=== PATIENT | male | born 1935 | race Caucasian/White ===

== ENCOUNTER 2016-07-16 08:19 | Emergency (ER) | payer OTHER ==
--- NOTE | 2016-07-16 08:49 | ED EKG INTERP ---
EKG Interpretation - EKG Time of EKG reading by physician:: 08:31 EKG Read and Signed by:: Leola Mullins EKG Interpretation (*Must complete 3 of following elements*): Abnormal Rate: 84 Rhythm: sinus rhythm with 1st degree AV block Comments: LBBB Attestation - Scribe Verification/Attestation Scribe:: Kandi Lyman Acting as Scribe for:: Leola Mullins Scribe documention review:: This chart was documented by a scribe and accurately reflects the service the provider performed and the decisions made by the provider.
[2016-07-16] MEDS ORDERED: LASIX IV ONE (08:57)
--- NOTE | 2016-07-16 09:15 | PROVIDER DOCUMENTATION ---
HPI-General Adult - General Source: patient - History of Present Illness -Gen Adult Nature of Presenting Problems: Pt is 80 y/o M presents to the ED with increased swelling. 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 Pt denies CP. Pt denies F and chills. Pt states being SOB. Pt states mild cough. Location of Pain/Injury: reports: lower extremity (bilateral leg) Pain Radiation: reports: no radiation Quality of Pain: reports: fullness Severity: reports: mild Onset/Duration: reports: 1 week ago Timing: reports: still present, intermittent Context/Activities at Onset: reports: light activity Modifying Factors: improves with: nothing Associated Symptoms: reports: cough, shortness of breath, weakness, trouble walking. denies: anxiety, arm pain, back/neck pain, chest pain, constipation, diaphoresis, diarrhea, dizziness, EENT symptoms, fatigue, fever/chills, genitourinary problems, headaches, heartburn, joint pain, loss of appetite, malaise, muscle aches, sinus congestion/drainage, nausea, rash, seizure, sensory /motor loss, pain with inspiration, swelling/mass in abdomen, syncope, vomiting Similar Symptoms Previously?: Yes Recently seen or treated by another doctor?: No <Kandi Lyman - Last Filed: 07/16/16 11:36> <Leola Mullins - Last Filed: 07/16/16 11:41> - General Chief Complaint: Shortness of Breath Stated Complaint: CANT BREATHE Time Seen by Provider: 07/16/16 08:53 Allergies/Adverse Reactions: Patient Allergies Allergy/AdvReac Type Severity Reaction Status Date / Time hydrochlorothiazide Allergy Unknown Verified 07/16/16 09:41 [From Hyzaar] hydroxyzine HCl * Allergy Unknown Verified 07/16/16 09:41 [From Atarax] ketoprofen [From Orudis] Allergy SWELLING Verified 07/16/16 09:41 losartan potassium * Allergy Unknown Verified 07/16/16 09:41 [From Hyzaar] Home Medications: Home Medication List Medication Instructions Recorded Confirmed Last Taken Type Furosemide [Lasix] 40 mg PO DAILY 05/13/14 07/16/16 10/25/15 History Glimepiride 2 mg PO BID 01/13/15 03/18/17 06/26/16 History Omeprazole [Prilosec] 40 mg PO DAILY 05/13/14 07/16/16 10/25/15 History Sotalol [Betapace] 80 mg PO BID 05/13/14 07/16/16 10/25/15 History Aspirin [Ecotrin] 325 mg PO DAILY #30 tablet. 10/30/15 07/16/16 Unknown Rx SIMVAstatin [Zocor] 20 mg PO MoWeFr@2100 #0 tablet 10/30/15 07/16/16 Unknown Rx Brinzolamide [Azopt] 1 drop OP BID 04/10/16 07/16/16 Unknown History Latanoprost [Xalatan] 2.5 ml OP QHS 04/10/16 07/16/16 Unknown History Alfuzosin HCl [Alfuzosin HCl ER] 10 mg PO DAILY 07/16/16 07/16/16 Unknown History Furosemide [Lasix] 40 mg PO DAILY #30 tablet 07/16/16 Unknown Rx Warfarin [Coumadin] 3 mg PO DAILY 07/16/16 07/16/16 Unknown History Review of Systems - Adult - REVIEW OF SYSTEMS - ADULT Constitutional: denies: chills, fever Eyes: denies: blurred vision, double vision Ears, Nose, Mouth & Throat: denies: ear pain, nose pain, throat pain Cardiovascular: denies: chest pain, heart murmur, irregular heart rate Respiratory: reports: cough, shortness of breath. denies: wheezing Gastrointestinal: denies: abdominal pain, diarrhea, nausea, vomiting Genitourinary: denies: dysuria, discharge, hematuria Musculoskeletal: denies: bone pain, joint pain, neck pain Integumentary: denies: hives, itching Neurological: denies: dizziness/vertigo, headache/migraines Psychiatric: reports: no symptoms reported Endocrine: reports: no symptoms reported Hematologic/Lymphatic: reports: no symptoms reported Allergic/Immunologic: reports: no symptoms reported All Other Systems: Reviewed and Negative <Kandi Lyman - Last Filed: 07/16/16 11:36> Past History - Adult - PAST MEDICAL HISTORY-ADULT Review of Records: reports: Nursing Assessment Review, Medications Reviewed, Social history reviewed & non-contributory. Major Childhood Illnesses: reports: denies history Cardiovascular: reports: HTN, hyperlipidemia, pacemaker Respiratory: reports: denies history Gastrointestinal: reports: GERD Obstetrical/Gynecological: reports: denies history Genitourinary: reports: denies history Musculoskeletal: reports: other (gout) Neurological: reports: TIA Endocrine/Immune: reports: Diabetes, thyroid disorder Other Conditions: reports: cataract/glaucoma - PRIOR SURGERIES/PROCEDURES Surgical/Procedure History: reports: pacemaker, tonsillectomy - PRIOR HOSPITALIZATIONS Prior Hospitalizations: reports: none - IMMUNIZATION STATUS Childhood Immunizations: See Nurse Assessment Flu Vaccine: See Nurse Assessment - FAMILY HISTORY Family History: reviewed, not pertinent - SOCIAL HISTORY Smoking: quit greater than 1 year, cigarettes Substance Use: denies Living Situation: family <Kandi Lyman - Last Filed: 07/16/16 11:36> Physical Exam-General - PHYSICAL EXAM-ADULT Initial Vital Signs Reviewed: Yes - CONSTITUTIONAL General Appearance: appears well, alert, no apparent distress - EYES Eyes: PERRL/EOMI, pink conjunctivae, fundi clear, no AV nicking - HEAD, EARS, NOSE, MOUTH & THROAT HENMT: normocephalic/atraumatic, moist mucous membranes, normal ENT inspection, TMs normal, pharynx normal - NECK Neck: non-tender, full range of motion, supple, normal inspection - RESPIRATORY Respiratory: chest non-tender, lungs clear, normal breath sounds, no pleuratic chest pain, no respiratory distress, no accessory muscle use, increased rate - CARDIOVASCULAR Cardiovascular: normal peripheral pulses, regular rate, rhythm, no edema, no gallop, no JVD, no murmur - GASTROINTESTINAL (ABDOMEN) Abdominal Exam: normal bowel sounds, non tender, soft, no organomegaly, no pulsatile mass - LYMPHATIC Lymphatic: no adenopathy - MUSCULOSKELETAL Back Exam: normal inspection, no CVA tenderness, no vertebral tenderness Extremity: normal range of motion, non-tender, normal gait, no calf tenderness, normal capillary refill, pedal edema (bilateral), swelling (bilateral legs) - SKIN Integumentary: normal color, normal turgor, warm/dry - NEUROLOGIC Neurologic: grossly normal - PSYCHIATRIC Psych/Mental Status: normal mood/affect, oriented x 3 <Kandi Lyman - Last Filed: 07/16/16 11:36> Progress - PLAN OF CARE/RESULTS Progress/Plan/Lab Results: Orders Category Date Time Status Cardiac Monitoring DIRECTED Care 07/16/16 08:55 Active Saline Loc NOW Care 07/16/16 08:55 Active CHEST-PORTABLE [RAD] Stat Exams 07/16/16 08:55 Taken CBC WITH ELECTRONIC DIFF [HEME] Stat Lab 07/16/16 08:55 Uncollected CK PROFILE [SP CHEM] Stat Lab 07/16/16 08:55 Uncollected COMPREHENSIVE METABOLIC PANEL [CHEM] Stat Lab 07/16/16 08:55 Uncollected D-DIMER [CHEM] Stat Lab 07/16/16 08:55 Uncollected MAGNESIUM [CHEM] Stat Lab 07/16/16 08:55 Uncollected PRO B-NATRIURETIC PEPTIDE Stat Lab 07/16/16 08:55 Uncollected PROTIME WITH INR [COAG] Stat Lab 07/16/16 08:55 Uncollected PTT [COAG] Stat Lab 07/16/16 08:55 Uncollected TROPONIN T Stat Lab 07/16/16 08:55 Uncollected UA NIMS W/REFLEX CULT [URINALYSIS] Stat Lab 07/16/16 08:55 Uncollected Furosemide [Lasix] Med 07/16/16 08:57 Discontinued 100 mg IV NOW ONE EKG [EKG] Stat Ther 07/16/16 08:37 Ordered Vital Signs - 24 hr 07/16/16 08:38 Temperature 97.7 F Pulse Rate 86 Respiratory 24 Rate Blood Pressure 183/80 O2 Sat by Pulse 93 L Oximetry Laboratory Tests 07/16/16 09:21 WBC 8.72 RBC 4.61 L Hgb 13.9 L Hct 43.0 MCV 93.3 MCH 30.2 MCHC 32.3 L RDW Std Deviation 13.6 Plt Count 153 MPV 11.8 H Immature Gran % (Auto) 0.2 Neut % (Auto) 73.6 Lymph % (Auto) 13.3 L [place] % (Auto) 7.2 Eos % (Auto) 5.2 Baso % (Auto) 0.5 Immature Gran # (Auto) 0.02 Neut # (Auto) 6.42 Lymph # (Auto) 1.16 L [place] # (Auto) 0.63 H Eos # (Auto) 0.45 Baso # (Auto) 0.04 Laboratory Tests 07/16/16 07/16/16 07/16/16 09:21 09:21 09:21 WBC 8.72 RBC 4.61 L Hgb 13.9 L Hct 43.0 MCV 93.3 MCH 30.2 MCHC 32.3 L RDW Std Deviation 13.6 Plt Count 153 MPV 11.8 H Immature Gran % (Auto) 0.2 Neut % (Auto) 73.6 Lymph % (Auto) 13.3 L [place] % (Auto) 7.2 Eos % (Auto) 5.2 Baso % (Auto) 0.5 Immature Gran # (Auto) 0.02 Neut # (Auto) 6.42 Lymph # (Auto) 1.16 L [place] # (Auto) 0.63 H Eos # (Auto) 0.45 Baso # (Auto) 0.04 PT INR PTT (Actin FS) D-Dimer 0.71 H Sodium 142 Potassium 4.4 Chloride 106 Carbon Dioxide 24 L Anion Gap 12 BUN 27 H Creatinine 1.7 H Estimated GFR/1.73 m2 39 BUN/Creatinine Ratio 16 Glucose 255 H Calculated Osmolality 297 Calcium 9.0 Magnesium 1.9 Total Bilirubin 1.23 H AST 12 ALT 14 Alkaline Phosphatase 136 H Creatine Kinase 59 Troponin T Dqe-A-Yeqbipueeai Pept Total Protein 6.9 Albumin 3.4 L Globulin 3.5 Albumin/Globulin Ratio 1.0 Urine Source Urine Color Urine Turbidity Urine pH Ur Specific [place] Urine Protein Ur Glucose (Stick) Ur Ketones (Stick) Urine Blood Urine Nitrite Urine Bilirubin Urobilinogen Dipstick Urine Leukocytes Urine WBC (Auto) Urine RBC (Auto) U Epithel Cells (Auto) Urine Bacteria (Auto) 07/16/16 07/16/16 07/16/16 09:21 09:21 09:21 WBC RBC Hgb Hct MCV MCH MCHC RDW Std Deviation Plt Count MPV Immature Gran % (Auto) Neut % (Auto) Lymph % (Auto) [place] % (Auto) Eos % (Auto) Baso % (Auto) Immature Gran # (Auto) Neut # (Auto) Lymph # (Auto) [place] # (Auto) Eos # (Auto) Baso # (Auto) PT 27.4 H INR 2.56 PTT (Actin FS) 37.8 H D-Dimer Sodium Potassium Chloride Carbon Dioxide Anion Gap BUN Creatinine Estimated GFR/1.73 m2 BUN/Creatinine Ratio Glucose Calculated Osmolality Calcium Magnesium Total Bilirubin AST ALT Alkaline Phosphatase Creatine Kinase Troponin T < 0.010 Tss-Y-Ciohikglckh Pept 1649 H Total Protein Albumin Globulin Albumin/Globulin Ratio Urine Source Urine Color Urine Turbidity Urine pH Ur Specific [place] Urine Protein Ur Glucose (Stick) Ur Ketones (Stick) Urine Blood Urine Nitrite Urine Bilirubin Urobilinogen Dipstick Urine Leukocytes Urine WBC (Auto) Urine RBC (Auto) U Epithel Cells (Auto) Urine Bacteria (Auto) 07/16/16 10:07 WBC RBC Hgb Hct MCV MCH MCHC RDW Std Deviation Plt Count MPV Immature Gran % (Auto) Neut % (Auto) Lymph % (Auto) [place] % (Auto) Eos % (Auto) Baso % (Auto) Immature Gran # (Auto) Neut # (Auto) Lymph # (Auto) [place] # (Auto) Eos # (Auto) Baso # (Auto) PT INR PTT (Actin FS) D-Dimer Sodium Potassium Chloride Carbon Dioxide Anion Gap BUN Creatinine Estimated GFR/1.73 m2 BUN/Creatinine Ratio Glucose Calculated Osmolality Calcium Magnesium Total Bilirubin AST ALT Alkaline Phosphatase Creatine Kinase Troponin T Obh-A-Udhkdteauiw Pept Total Protein Albumin Globulin Albumin/Globulin Ratio Urine Source CLEAN CATCH Urine Color YELLOW Urine Turbidity CLEAR Urine pH 5.5 Ur Specific [place] 1.012 Urine Protein TRACE A Ur Glucose (Stick) TRACE Ur Ketones (Stick) NEGATIVE Urine Blood NEGATIVE Urine Nitrite NEGATIVE Urine Bilirubin NEGATIVE Urobilinogen Dipstick NORMAL Urine Leukocytes NEGATIVE Urine WBC (Auto) <10 Urine RBC (Auto) <10 U Epithel Cells (Auto) <10 Urine Bacteria (Auto) NEGATIVE - REASSESSMENT Reassessment #1 Time Reassessed: 11:36 (Dr. Mullins at bedside ) Status: improving Reassessment Comment: Dr. Mullins offered admit and Pt declined and wants to go home - XRAY 1 XRAY: Bilateral XRAY Study: Chest Impression: Normal XRAY Interpretation: pulmonary edema; slight R pleural effusion <Kandi Lyman - Last Filed: 07/16/16 11:36> - REASSESSMENT Reassessment #2 Time Reassessed: 11:39 Status: improving (Pt urinated a lot and feels a lot better. Ready to go home. Declined my offer for admission and pacer check. Stating that h's pacer was checked a couple of months ago and he was told that it was ok and he has an appoint with his [employer] NEXT WEEK.) <Leola Mullins X - Last Filed: 07/16/16 11:41> Departure <Kandi Lyman - Last Filed: 07/16/16 11:36> - Departure Time of Disposition Order: 11:38 Certified Medical Emergency: Emergent <MullinsLeola Mcbride - Last Filed: 07/16/16 11:41> - Departure DIAGNOSIS: CHF exacerbation Qualifiers: Congestive heart failure type: unspecified congestive heart failure type Qualified Code(s): I50.9 - Heart failure, unspecified Disposition: HOME 01 Condition: Stable Additional Instructions: Return to ER if your symptoms worsen. Follow up with your Help Desk Consultant next week as scheduled. Prescriptions: Furosemide [Lasix] 40 mg PO DAILY #30 tablet Referrals: Yoni Turcios DO [Primary Care Provider] - Attestation - Scribe Verification/Attestation Scribe:: Kandi Lyman Acting as Scribe for:: Leola Mullins Scribe documention review:: This chart was documented by a scribe and accurately reflects the service the provider performed and the decisions made by the provider. <Kandi Lyman - Last Filed: 07/16/16 11:36> Physician Attestation
[2016-07-16 09:41] LABS: MANUAL DIFF NEEDED? NO
[2016-07-16 09:44] LABS: HEMOGLOBIN 13.9 g/dL (14.0-18.0); MCV 93.3 FL (81-99); RBC 4.61 XMIL (4.7-6.1)
[2016-07-16 09:45] LABS: BASO% 0.5 % (0.0-0.8); EOS# 0.45 X1000 (0.0-0.7); EOS% 5.2 % (0.0-10.0); IMM GRAN# 0.02 X1000 (0.0-0.04); IMM GRAN% 0.2 % (0.0-0.5); LYMPH# 1.16 X1000 (1.2-3.4); LYMPH% 13.3 % (20.5-51.1); MCH 30.2 PG (27-31); MCHC 32.3 g/dL (33-37); MONO# 0.63 X1000 (0.11-0.59); MONO% 7.2 % (1.7-9.3); MPV 11.8 FL (7.4-10.4); NEUT% 73.6 % (42.2-75.2); PLT 153 X1000 (130-400)
[2016-07-16 09:55] LABS: ALBUMIN 3.4 g/dL (3.5-5.0); MAGNESIUM 1.9 mg/dL (1.5-2.7); POTASSIUM 4.4 mmol/L (3.5-5.1); TOTAL BILIRUBIN 1.23 mg/dL (0.20-1.00); TOTAL PROTEIN 6.9 g/dL (6.3-8.3)
[2016-07-16 10:00] LABS: PTT 37.8 Seconds (22.0-36.0)
[2016-07-16] MEDS ORDERED: LABETALOL IV ONE (10:01)
[2016-07-16 10:16] LABS: URINE CULTURE NEEDED? NO; URINE MICRO REVIEW NEEDED? NO; URINE SOURCE CLEAN CATCH
[2016-07-16 10:26] LABS: INR 2.56; PROTIME 27.4 Seconds (9.2-11.7)
[2016-07-16 10:27] LABS: BILIRUBIN URINE NEGATIVE (NEGATIVE); BLOOD URINE NEGATIVE (NEGATIVE); COLOR YELLOW; GLUCOSE URINE TRACE mg/dL (NEGATIVE); LEUKOCYTES URINE NEGATIVE (NEGATIVE); NITRITE URINE NEGATIVE (NEGATIVE); PH URINE 5.5; PROTEIN URINE TRACE mg/dL (NEGATIVE); SP GRAVITY URINE 1.012; TURBIDITY URINE CLEAR (CLEAR); UROBILINOGEN URINE NORMAL (NORMAL)
[2016-07-16 10:29] LABS: UR EPITHELIAL CELLS <10 /HPF (<10); URINE BACTERIA NEGATIVE /HPF; URINE RBC <10 /HPF (<10); URINE WBC <10 /HPF (<10)
[2016-07-16 11:01] LABS: ALLEN TEST YES; BE -2.4 mmoll (-3.0-3.0); BLOOD TYPE ARTERIAL; DRAW SITE R RADIAL; O2(CT) 18.7 mL/dL (15.0-23.0); PCO2(98.6) 42 mmHg (35-45); PO2(98.6) 72 mmHg (60-100); SAMPLE BLOOD; SAO2 96.6 % (95.0-100.0); THB 14.2 g/dL (11.5-17.4); pH(98.6) 7.35 (7.35-7.45)
[2016-07-16 11:02] LABS: MODALITY CANNULA
--- NOTE | 2016-07-16 12:19 | Diag Imaging Result Document ---
PROCEDURE NAME: CHEST-PORTABLE - 07/16/2016 SINGLE FRONTAL RADIOGRAPH OF THE CHEST: COMPARISON: 04/10/2016. FINDINGS: Postsurgical changes on the right are again noted. A metallic staple line traverses the right mid lung zone similar to the previous study. There is mild linear scarring similar to the previous study in the right mid lung zone. There may be a small pleural effusion versus pleural scarring at the right lung base. The lungs are clear otherwise. Cardiac silhouette is unchanged. IMPRESSION: Postsurgical changes on the right and mild blunting of the right costophrenic angle suggesting chronic pleural scarring versus trace effusion.
[2016-07-16 12:36] VITALS: BP 176/93
--- NOTE | 2016-07-17 06:05 | EKG Report ---
Test Performed on : 07/16/2016 08:31:59 AM Test Reason : SOB Blood Pressure : / mmHG Vent. Rate : 084 BPM Atrial Rate : 084 BPM P-R Int : 254 ms QRS Dur : 132 ms QT Int : 420 ms P-R-T Axes : 056 035 005 degrees QTc Int : 496 ms Sinus rhythm. with 1st degree AV block. Left bundle branch block Abnormal ECG When compared with ECG of 13-APR-2016 22:16, Left bundle branch block is now present Criteria for Anteroseptal infarct are no longer present Unconfirmed Result
== END 2016-07-16 12:10 | disposition home or self-care (01) ==
LOC: ED 08:19
DX: I50.9 Heart failure, unspecified (principal); R06.02 Shortness of breath; I10 Essential (primary) hypertension; E78.5 Hyperlipidemia, unspecified; K21.9 Gastro-esophageal reflux disease without esophagitis; M10.9 Gout, unspecified; Z86.73 Personal history of transient ischemic attack (TIA), and cerebral infarction without residual deficits; E11.9 Type 2 diabetes mellitus without complications; Z79.899 Other long term (current) drug therapy; E07.9 Disorder of thyroid, unspecified; Z95.0 Presence of cardiac pacemaker; Z87.891 Personal history of nicotine dependence; R60.9 Edema, unspecified; Z79.01 Long term (current) use of anticoagulants; Z79.82 Long term (current) use of aspirin
CPT/HCPCS: 71010; 80053; 81001; 82550; 82805; 83735; 83880; 84484; 85025; 85379; 85610; 85730; 93005; J1940

== ENCOUNTER 2018-07-05 11:14 | Inpatient (IN) ==
--- NOTE | 2018-07-05 11:53 | Diag Imaging Result Doc PS360 ---
EXAM: CT HEAD W/O CONTRAST HISTORY: ams/ r/o stroke TECHNIQUE: CT head without contrast COMPARISON: 05/08/2018 FINDINGS: No parenchymal hemorrhage. No epidural or subdural hematoma. No subarachnoid hemorrhage. There is atrophy with chronic microvascular ischemic changes. No mass identified on this noncontrasted exam. No hydrocephalus. Persistent opacification of the right maxillary sinus with prominent mucus in the right ethmoid sinus.. IMPRESSION: 1.No hemorrhage 2.Atrophy with chronic microvascular ischemic changes 3.Persistent sinusitis This exam was performed using automated exposure control, adjustment of mA or kV according to patient size, and/or use of iterative reconstruction technique. Electronically signed by Oliver Ulloa 07/05/2018 11:51 AM
[2018-07-05] MEDS ORDERED: CATAPRES PO ONE (14:34)
--- NOTE | 2018-07-05 14:43 | EKG Report ---
Test Performed on : 07/05/2018 11:33:05 AM Test Reason : TIA Blood Pressure : / mmHG Vent. Rate : 071 BPM Atrial Rate : 071 BPM P-R Int : 202 ms QRS Dur : 178 ms QT Int : 480 ms P-R-T Axes : 000 -72 086 degrees QTc Int : 521 ms Atrial-sensed ventricular-paced rhythm Abnormal ECG When compared with ECG of 07-MAR-2017 13:31, No significant change was found Unconfirmed Result
[2018-07-05 15:46] LABS: BASO# 0.02 X1000 (0.0-0.2); BASO% 0.2 % (0.0-0.8); EOS# 0.36 X1000 (0.0-0.7); EOS% 4.3 % (0.0-10.0); HEMATOCRIT 42.7 % (42.0-52.0); HEMOGLOBIN 13.7 g/dL (14.0-18.0); IMM GRAN# 0.04 X1000 (0.0-0.04); IMM GRAN% 0.5 % (0.0-0.5); LYMPH# 1.66 X1000 (1.2-3.4); LYMPH% 19.9 % (20.5-51.1); MCH 29.7 PG (27-31); MCHC 32.1 g/dL (33-37); MCV 92.6 FL (81-99); MONO# 0.71 X1000 (0.11-0.59); MONO% 8.5 % (1.7-9.3); MPV 11.6 FL (7.4-10.4); NEUT# 5.56 X1000 (1.4-6.5); NEUT% 66.6 % (42.2-75.2); PLT 156 X1000 (130-400); RBC 4.61 XMIL (4.7-6.1); RDW 13.6 % (11.5-14.5); WBC 8.35 X1000 (4.8-10.8)
[2018-07-05 16:00] LABS: ALB/GLOB RATIO 1.1; ALBUMIN 3.7 g/dL (3.5-5.0); CALCIUM 8.4 mg/dL (8.8-10.2); CREATININE 1.3 mg/dL (0.7-1.2); POTASSIUM 4.4 mmol/L (3.5-5.1); TOTAL BILIRUBIN 0.83 mg/dL (0.20-1.00); TOTAL PROTEIN 7.1 g/dL (6.3-8.3)
[2018-07-05 16:54] LABS: URINE SOURCE VOIDED
[2018-07-05 17:00] LABS: BILIRUBIN URINE NEGATIVE (NEGATIVE); BLOOD URINE NEGATIVE (NEGATIVE); COLOR YELLOW; GLUCOSE URINE NEGATIVE (NEGATIVE); KETONE URINE NEGATIVE (NEGATIVE); LEUKOCYTES URINE NEGATIVE (NEGATIVE); NITRITE URINE NEGATIVE (NEGATIVE); PH URINE 7.5; PROTEIN URINE 70 mg/dL (NEGATIVE); SP GRAVITY URINE 1.015; TURBIDITY URINE CLEAR (CLEAR); UROBILINOGEN URINE NORMAL (NORMAL)
[2018-07-05 17:01] LABS: UR EPITHELIAL CELLS <10 /HPF (<10); URINE BACTERIA NEGATIVE /HPF; URINE RBC <10 /HPF (<10); URINE WBC <10 /HPF (<10)
[2018-07-05] MEDS: ASPIRIN PO ONE ×2 (17:38→17:54)
--- NOTE | 2018-07-05 17:42 | PROVIDER DOCUMENTATION ---
This chart was entered by Sneha Silva Scribe, acting as scribe for Erik Mayer MD. HPI-Neurological Disorder - General Chief Complaint: Stroke-Like Symptoms Stated Complaint: stroke like sx Time Seen by Provider: 07/05/18 14:11 Source: patient, family, EMS Allergies/Adverse Reactions: Patient Allergies Allergy/AdvReac Type Severity Reaction Status Date / Time hydrochlorothiazide Allergy Unknown Verified 07/05/18 15:30 [From Hyzaar] hydroxyzine HCl * Allergy Unknown Verified 07/05/18 15:30 [From Atarax] ketoprofen [From Orudis] Allergy SWELLING Verified 07/05/18 15:30 losartan potassium * Allergy Unknown Verified 07/05/18 15:30 [From Hyzaar] Home Medications: Home Medication List Medication Instructions Recorded Confirmed Last Taken Type Glimepiride 2 mg PO BID 05/13/14 03/07/17 02/09/17 07:00 History Omeprazole [Prilosec] 40 mg PO DAILY 05/13/14 03/07/17 02/09/17 07:00 History Sotalol [Betapace] 80 mg PO BID 05/13/14 03/07/17 02/09/17 07:00 History Aspirin [Ecotrin] 325 mg PO DAILY #30 tablet. 10/30/15 03/07/17 02/09/17 07:00 Rx SIMVAstatin [Zocor] 20 mg PO MoWeFr@2100 #0 tablet 10/30/15 03/07/17 02/08/17 21:00 Rx Brinzolamide [Azopt] 1 drop OP BID 04/10/16 03/07/17 02/09/17 07:00 History Latanoprost [Xalatan] 2.5 ml OP QHS 04/10/16 03/07/17 02/08/17 22:00 History Alfuzosin HCl [Alfuzosin HCl ER] 10 mg PO DAILY 07/16/16 03/07/17 02/09/17 07:00 History Furosemide [Lasix] 40 mg PO DAILY #30 tablet 07/16/16 03/07/17 02/09/17 07:00 Rx Acetaminophen [Tylenol] 650 mg PO Q6H PRN PRN tablet 03/13/17 Unknown Rx Warfarin Sodium [Coumadin] 4 mg PO EVERY OTHER DAY #30 tab 03/13/17 Unknown Rx Warfarin [Coumadin] 3 mg PO EVERY OTHER DAY #30 tab 03/13/17 Unknown Rx - History of Present Illness-Neuro Nature of Presenting Problem: 82 yowm presents to ed with TIA. pt sts has had many in the past and this was the same sx. pt c/o weakness in rt arm/leg, could not ambulate, could not speak and sts lasted 15 minutes. pt called ems and by the time pt was at the ed the sx have all resolved. pt on exam is back baseline. pt sts he did have sinus sx on monday and was taking off coumadin 5 days prior to sx but is now back on medication Severity: reports: moderate Onset/Duration: reports: this afternoon Timing: reports: gone now Context: reports: impaired speech, facial droop Character of Altered Mental Status: reports: trouble concentrating Any recent trauma/injury?: reports: none Character of Deficits: reports: new weakness (rt arm/leg), impaired speech, decreased ability to stand, decreased ability to walk. denies: impaired swallowing New weakness or altered sensation location:: reports: RUE, RLE Cognitive Baseline: alert, oriented x3 Gait Baseline: walks without assistance Associated Symptoms: reports: decreased ability to walk or stand, confusion, trouble walking, weakness. denies: short of breath, headache, chest pain, neck/back pain, fever/chills, loss of consciousness, nausea, vomiting, vision changes Similar Symptoms Previously?: Yes (many TIA's) Recently seen or treated by another doctor?: Yes (had sinus sx on monday) Review of Systems - Adult - REVIEW OF SYSTEMS - ADULT Constitutional: reports: no symptoms reported. denies: chills, fever Eyes: denies: blurred vision, double vision Ears, Nose, Mouth & Throat: reports: no symptoms reported Cardiovascular: denies: chest pain, palpitations Respiratory: denies: cough, shortness of breath, wheezing Gastrointestinal: denies: abdominal pain, diarrhea, nausea, vomiting Genitourinary: reports: no symptoms reported Musculoskeletal: reports: see HPI, muscle weakness (RUE?RLE). denies: back pain, neck pain Integumentary: reports: no symptoms reported Neurological: reports: see HPI, ataxia, loss of balance, other (troule ambulating). denies: dizziness/vertigo, headache/migraines, numbness, paresthesia, seizure, slurred speech, syncope, tremors Psychiatric: reports: no symptoms reported Endocrine: reports: no symptoms reported Hematologic/Lymphatic: reports: no symptoms reported Allergic/Immunologic: reports: no symptoms reported All Other Systems: Reviewed and Negative Past History - Adult - PAST MEDICAL HISTORY-ADULT Review of Records: reports: Old Records Reviewed, Nursing Assessment Review, Medications Reviewed, Social history reviewed & non-contributory. Major Childhood Illnesses: reports: denies history Cardiovascular: reports: HTN, hyperlipidemia, pacemaker Respiratory: reports: denies history Gastrointestinal: reports: GERD Genitourinary: reports: denies history Musculoskeletal: reports: arthritis, other (gout) Neurological: reports: TIA Endocrine/Immune: reports: Diabetes, thyroid disorder Diabetes Type: Type 2 Other Conditions: reports: cataract/glaucoma - PRIOR SURGERIES/PROCEDURES Surgical/Procedure History: reports: pacemaker, tonsillectomy - PRIOR HOSPITALIZATIONS Prior Hospitalizations: reports: none - IMMUNIZATION STATUS Childhood Immunizations: See Nurse Assessment Flu Vaccine: See Nurse Assessment - FAMILY HISTORY Family History: reviewed, not pertinent - SOCIAL HISTORY Smoking: denies Substance Use: denies Living Situation: family Physical Exam- Neurological - Physical Exam-Neuro Initial Vital Signs Reviewed: Yes (HTN meds not taken this am ) General Appearance: appears well, alert, no apparent distress, obese Eye Exam: bilateral eye: normal inspection, PERRL HENMT: normocephalic/atraumatic, moist mucous membranes, normal ENT inspection Head Injury: no evidence of injury Neck: non-tender, full range of motion, supple, normal inspection Respiratory: chest non-tender, lungs clear, normal breath sounds, other (pt on home o2 2LPM) Cardiovascular: normal peripheral pulses, regular rate, rhythm Abdominal Exam: normal bowel sounds, non tender, soft Lymphatic: no adenopathy Extremity: normal range of motion, non-tender, normal inspection, no pedal edema , no calf tenderness, normal capillary refill, pelvis stable rail car mechanic Exam: normal hearing, normal speech, PERRL Coordination/Gait: normal finger to nose, normal gait Motor/Sensory: no motor deficit, no sensory deficit, no pronator drift, negative Babinski's sign Neurologic: grossly normal, no motor/sensory deficits Integumentary: normal color, normal turgor, warm/dry Psych/Mental Status: normal mood/affect, normal thought content, normal thought process, oriented x 3 - Glascow Coma Scale Best Eye Response: (4) open spontaneously Best Verbal Response: (5) oriented Best Motor Response: (6) obeys commands Total Glascow Score: 15 Progress - PLAN OF CARE/RESULTS Progress/Plan/Lab Results: Vital Signs - 8 hr 07/05/18 11:45 Temperature 98.5 F Pulse Rate 65 Respiratory Rate 18 Blood Pressure 177/85 O2 Sat by Pulse Oximetry 100 Laboratory Results - last 24 hr 07/05/18 07/05/18 07/05/18 15:17 15:17 15:17 WBC 8.35 RBC 4.61 L Hgb 13.7 L Hct 42.7 MCV 92.6 MCH 29.7 MCHC 32.1 L RDW Std Deviation 13.6 Plt Count 156 MPV 11.6 H Immature Gran % (Auto) 0.5 Neut % (Auto) 66.6 Lymph % (Auto) 19.9 L [place] % (Auto) 8.5 Eos % (Auto) 4.3 Baso % (Auto) 0.2 Immature Gran # (Auto) 0.04 Neut # (Auto) 5.56 Lymph # (Auto) 1.66 [place] # (Auto) 0.71 H Eos # (Auto) 0.36 Baso # (Auto) 0.02 Sodium 138 Potassium 4.4 Chloride 99 Carbon Dioxide 29 Anion Gap 10 BUN 24 H Creatinine 1.3 H Estimated GFR/1.73 m2 53 BUN/Creatinine Ratio 18 Glucose 164 H Calculated Osmolality 283 Calcium 8.4 L Total Bilirubin 0.83 AST 19 ALT 21 Alkaline Phosphatase 152 H Troponin T 0.013 Total Protein 7.1 Albumin 3.7 Globulin 3.4 Albumin/Globulin Ratio 1.1 Urine Source Urine Color Urine Turbidity Urine pH Ur Specific [place] Urine Protein Ur Glucose (Stick) Ur Ketones (Stick) Urine Blood Urine Nitrite Urine Bilirubin Urobilinogen Dipstick Urine Leukocytes Urine WBC (Auto) Urine RBC (Auto) U Epithel Cells (Auto) Urine Bacteria (Auto) 07/05/18 16:35 WBC RBC Hgb Hct MCV MCH MCHC RDW Std Deviation Plt Count MPV Immature Gran % (Auto) Neut % (Auto) Lymph % (Auto) [place] % (Auto) Eos % (Auto) Baso % (Auto) Immature Gran # (Auto) Neut # (Auto) Lymph # (Auto) [place] # (Auto) Eos # (Auto) Baso # (Auto) Sodium Potassium Chloride Carbon Dioxide Anion Gap BUN Creatinine Estimated GFR/1.73 m2 BUN/Creatinine Ratio Glucose Calculated Osmolality Calcium Total Bilirubin AST ALT Alkaline Phosphatase Troponin T Total Protein Albumin Globulin Albumin/Globulin Ratio Urine Source VOIDED Urine Color YELLOW Urine Turbidity CLEAR Urine pH 7.5 Ur Specific [place] 1.015 Urine Protein 70 A Ur Glucose (Stick) NEGATIVE Ur Ketones (Stick) NEGATIVE Urine Blood NEGATIVE Urine Nitrite NEGATIVE Urine Bilirubin NEGATIVE Urobilinogen Dipstick NORMAL Urine Leukocytes NEGATIVE Urine WBC (Auto) <10 Urine RBC (Auto) <10 U Epithel Cells (Auto) <10 Urine Bacteria (Auto) NEGATIVE Orders Category Date Time Status CT HEAD W/O CONTRAST [CT] Stat Exams 07/05/18 11:16 Completed CBC WITH ELECTRONIC DIFF [HEME] Stat Lab 07/05/18 15:17 Completed COMPREHENSIVE METABOLIC PANEL [CHEM] Stat Lab 07/05/18 15:17 Completed PROTIME WITH INR [COAG] Stat Lab 07/05/18 17:36 Uncollected PTT [COAG] Stat Lab 07/05/18 17:36 Uncollected TROPONIN T Stat Lab 07/05/18 15:17 Completed URINALYSIS [URINALYSIS] Stat Lab 07/05/18 16:35 Completed Aspirin Med 07/05/18 17:38 Once 325 mg PO NOW ONE Clonidine [Catapres] Med 07/05/18 14:34 Discontinued 0.1 mg PO NOW ONE EKG [EKG] Stat Ther 07/05/18 14:34 Draft no TPA given due to all sx resolved Result Diagrams: 07/05/18 15:17 07/05/18 15:17 - REASSESSMENT Reassessment #1 Time Reassessed: 16:51 Status: improving Reassessment Comment: pt is in no distress - EKG 1 Time of EKG reading by physician:: 11:33 EKG Read and Signed by:: Erik Mayer EKG Interpretation (*Must complete 3 of following elements*): Abnormal Rate: 71 Rhythm: atrial sensed ventricular paced rhythm [place]: normal QRS: normal [place] Interval: normal ST Wave: normal - CT/MRI 1 CT Study: Head Impression: See EMR Report (EXAM: CT HEAD W/O CONTRAST HISTORY: ams/ r/o stroke TECHNIQUE: CT head without contrast COMPARISON: 05/08/2018 FINDINGS: No parenchymal hemorrhage. No epidural or subdural hematoma. No subarachnoid hemorrhage. There is atrophy with chronic microvascular ischemic changes. No mass identified on this noncontrasted exam. No hydrocephalus. Persistent opacification of the right maxillary sinus with prominent mucus in the right ethmoid sinus.. IMPRESSION: 1.No hemorrhage 2.Atrophy with chronic microvascular ischemic changes 3.Persistent sinusitis This exam was performed using automated exposure control, adjustment of mA or kV according to patient size, and/or use of iterative reconstruction technique. Electronically signed by Oliver Ulloa 07/05/2018 11:51 AM 07/05/18 1151 Interpreting Physician: Oliver Ulloa MD Dictated Date/Time: 07/05/18 1149 cc: Erik Mayer MD; Yoni Turcios DO) - CONSULTS/PCP/HOSPITALIST Notification #1 *Consult/PCP/Hospitalist*: hospitalist spoke with justin Time Discussed: 17:30 (svetlana turcios pt and have to checked if pt has vip card?) Consult Disposition: Will see in ED #2 Consult: dr svetlana turcios Time Discussed: 17:34 Reason/Comments: TIA Consult Disposition: Admit Departure - Departure Date of Disposition Decision: 07/05/18 Time of Disposition Decision: 17:20 DIAGNOSIS: TIA (transient ischemic attack) Qualifiers: Transient cerebral ischemia type: unspecified Qualified Code(s): G45.9 - Transient cerebral ischemic attack, unspecified Disposition: ADMITTED INPATIENT 09 Certified Medical Emergency: Emergent Condition: Stable Additional Freetext Instructions: ED Follow Up Instructions: You have been treated by a care provider in the Emergency Department. These instructions are being provided to you so you can have an understanding of how to care for yourself upon discharge. Upon discharge from the Emergency Department, you are responsible for making arrangements for follow-up care by a physician of your choice. Take all prescribed medications as directed. Return to the Emergency Department immediately for any new or worsening symptoms. You may call the Physician Referral phone number at [phone] to obtain a list of Physicians who are taking new patients. Referrals and Follow-Ups: Yoni Turcios DO [Primary Care Provider] - - Critical Care Note This patient required my direct & personal management of CC.: Yes Total Time (mins): 34 Critical Care Statement: This patient required my direct personal management to treat or rule out processes, the absence of which, could potentiallly result in sudden, clinically significant life or limb threatening deterioration. Attestation - Physician/ SARI Attestation Patient care was provided by Advanced Practice Provider:: No The physician spent face to face time with patient:: Yes Advanced Practice Provider documentation review:: Supervising physician onsite and consulted in the evaluation and care of this patient. The physician did have a face to face encounter with the patient. - NIH Stroke Scale NIH Type: Initial Evaluation Level of Consciousness: 0-Alert LOC Questions (ask month and age): 0-Answers Both Correctly LOC Commands (ask to open & close eyes;make a fist, let go): 0-Obeys Both Correctly Best Gaze (horizontal eye movement): 0-Normal Visual (use finger movement, counting or visual threat): 0-No Visual Loss Facial Palsy (show teeth or raise eyebrows & close eyes tght: 0-Symmetrical Movement Motor Function-left arm: 0-Normal Motor Function-right arm: 0-Normal Motor Function-left le-Normal Motor Function-right le-Normal Limb Ataxia(bzxvei-ketp-yroiyl, or heel to rodriguez): 0-No Ataxia Sensory(pin prick to face,arms,trunk,legs-compare side/side): 0-No Ataxia Best Language(name item/read sentence.Ex-Down to Earth): 0-No Aphasia Dysarthria(Pt read words or say words Ex.Mama,Tip-Top,Thanks: 0-Normal Articulation Extinction and Inattention: 0-Normal NIH Total Score: 0 This chart was documented by the indicated scribe, (Sneha Silva Scribe) and accurately reflects the services I performed and decisions made by me, Erik Phan MD, as attested by the provider's signature.
[2018-07-05 18:15] LABS: INR 1.04; PROTIME 14.5 Seconds (11.0-16.0)
[2018-07-05 18:16] LABS: PTT 34.1 Seconds (22.3-41.8)
[2018-07-05] MEDS ORDERED: ZOFRAN IV PRN (19:18)
[2018-07-05] MEDS ORDERED: NS 1,000 ML IV PRN (19:18)
[2018-07-05] MEDS ORDERED: COUMADIN PO SCH (21:00)
[2018-07-05] MEDS ORDERED: LASIX IV ONE (21:54)
[2018-07-05] MEDS: COLACE PO SCH (22:10)
[2018-07-05] MEDS: LOVENOX SUBQ SCH (22:10)
[2018-07-05] MEDS: BETAPACE PO SCH (22:10)
[2018-07-05] MEDS: TRESIBA FLEXTOUCH U-100 SUBQ SCH (22:15)
[2018-07-05] MEDS ORDERED: INSULIN PEN NEEDLES ONE (22:24)
[2018-07-05] MEDS: XALATAN 0.005% OPH SOLN RIGHT EYE SCH (23:14)
[2018-07-06] MEDS: AZOPT 1% OPHTH SUSP RIGHT EYE SCH ×3 (05:27→20:56)
[2018-07-06] MEDS: HUMALOG SUBQ SCH ×3 (06:27→17:20)
--- NOTE | 2018-07-06 08:34 | HISTORY AND PHYSICAL ---
ATTENDING PHYSICIAN: Dr. Yoni Turcios. ADMITTING PHYSICIAN: Dr. Yoni Turcios. CHIEF COMPLAINT: TIA versus reversible neurologic deficit. HISTORY OF PRESENT ILLNESS: Mr. Oswald is a pleasant 82-year-old gentleman, who carries a variety of diagnoses including but not limited to, hypercoagulable state requiring long-term anticoagulation, chronic cholecystitis, chronic venous insufficiency, history of prostate cancer, history of hypertension, dyslipidemia, gout, long-term use of insulin due to type 2 diabetes, history of pulmonary fibrosis, cardiac pacemaker, diabetes complicated by nephropathy, osteoarthritis of the left knee, atrial fibrillation and renal insufficiency. He was last seen in the Internal Medicine Clinic on the 24 of May [address] a CT scan of the head which demonstrated persistence of chronic sinusitis. Also a CT scan of the chest demonstrating COPD with superimposed pulmonary fibrosis. He was subsequently referred to ENT for evaluation of chronic sinusitis and underwent a balloon procedure to address his chronic sinusitis. He has been off his Coumadin 4 days prior to his procedure and has been receiving 100 mg of Lovenox once daily plus restarting his Coumadin approximately 24 hours after his procedure. He reports that he had some minimal bleeding for 2 days following his procedure. He had left his home to go have his toenails done and in the process of walking out of the building, he started to have symptoms, which he has had historically, suggestive of a TIA. He will was unable to talk. He felt subjective weakness in the right upper and right lower extremity with difficulty with his speech. They sat and rested for a minute without complete resolution. 911 was called and he was brought to the emergency room for evaluation. The reports that within 15 or so minutes, he began talking. They arrived at the emergency room at 11:[address] scan and laboratory were obtained. CT scan was unremarkable. He is not a candidate for an MRI secondary to pacemaker placement. He is seen in the emergency room by myself. He is markedly better and improved. We have agreed that he will be admitted for adjustment of his Coumadin. His INR is 1.0 and his PTT and PT are normal. I suspect that this is likely a subtherapeutic event. We will be starting b.i.d. Lovenox and initiating oral Coumadin with interval followup as discussed. MEDICATIONS ON ADMISSION: 1. Azopt drops 1 in the right eye b.i.d. 2. Aspirin 325 mg once daily. 3. Xalatan drops 1 in the evening. 4. Coumadin as directed. 5. Omeprazole 40 mg once daily. 6. Afluzosine 10 mg once daily. 7. Furosemide 40 mg b.i.d. 8. Allopurinol 200 mg once daily. 9. Simvastatin 20 mg Monday, Monday, Monday. 10. Sotalol 40 mg b.i.d. 11. He is also on injectable insulin, specifically NovoLog FlexPen with a 10:1 ratio, approximately 6 units per meal. 12. Tresiba 25 units at night. ALLERGIES: To Orudis causing swelling, Hyzaar causing dizziness, Atarax causing rash all over, Byetta causing nausea, and hydroxyzine causing a rash. FAMILY HISTORY: Father at 43, head and neck cancer. Mother in 2005, CHF. Brother Yordy at 73, congestive heart failure, blocked colon. SOCIAL HISTORY: Patient is with 3 children, 2 biologic and 1 step, and has 6 grandchildren. He has been for 41+ years. 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 He has a 90 pack year history, having been quit since 1977. He denies any alcohol. SURGERIES: Left ear surgery in 1969, back surgery in 1988, TURP in 1997, lung surgery in 1987, a broken right lower extremity in 1969, pacemaker placement in 2002, pacemaker replacement in 2007, cataract surgery in 2003, sliver bunionectomy in 2010, aortic valve repair in 2015. Patient's last annual wellness visit noted to be September 2017. 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 Patient is a participant in our chronic care program. PHYSICAL EXAMINATION: Performed by myself in the emergency room. VITAL SIGNS: Blood pressure 191/86, pulse at 67, temperature at 97.5 degrees, saturating 100% on 1 L of nasal oxygen. HEENT: Normocephalic, atraumatic. Pupils are equal and reactive to light and accommodation. NECK: Soft and supple. CARDIOVASCULAR: Regular rate and rhythm. LUNGS: Clear. ABDOMEN: Soft with decreased bowel sounds. EXTREMITIES: With 2+ pitting edema (patient admits to not taking Lasix today secondary to inconvenience while being out). NEUROLOGIC: Client Service Manager strength is equal bilaterally in the upper extremities. Lower extremities with 5/5 strength. Cranial nerves are assessed without any evidence of deficit. Patient is alert oriented x3 without any cognitive deficiencies. LABORATORY DATA: Obtained in the emergency room. White blood cell count 8.3, hemoglobin and hematocrit at 13.7 and 42.7 with platelets at 156,000. PT/INR at 14.5 and 1.0. Sodium 138, potassium 4.4, chloride 99, bicarb at 29, BUN and creatinine at 24 and 1.3, glucose at 164. AST and ALT at 19 and 21. Urinalysis has 70 mg/dL of protein. Additional labs pending for this morning including a 24 hour urine, a hemoglobin A1c, a CBC with differential, a CMP, a protime with an INR, and a B12. IMPRESSION AND PLAN: An 82-year-old with atrial fibrillation and hypercoagulable state, presents with some subtherapeutic anticoagulation status with what appears to be a transient ischemic attack, self-limited. He is currently neurologically intact and improved. However, based on his subtherapeutic INR, he will be admitted to the Internal Medicine service and started on low molecular weight heparin injections b.i.d. as well as supplemental Coumadin. We will repeat the PT/INR in the morning of July 06 and make recommendations to follow. Considering his lower extremity edema, known chronic venous hypertension and accelerated blood pressure in the emergency room, a single dose of IV Lasix is being provided as well to mobilize some fluid. We will be addressing lower extremity edema with some compression hose as well. I will be contacting ENT as well as Hematology Oncology regarding disposition and ongoing clinical management through the weekend. There is persistence of sinusitis on the right per admission CT scan of the head and it is my opinion that he might benefit from a more aggressive approach to anticoagulation thereby reducing his risk for a completed ischemic stroke. The patient understands the course of treatment and plan. No further issues at this time. Note is dictated on the morning following admission. cc: DO JEFRY Reyes
[2018-07-06] MEDS: ZYLOPRIM PO SCH (09:01)
[2018-07-06] MEDS: BETAPACE PO SCH ×2 (09:02→20:55)
[2018-07-06] MEDS: UROXATRAL PO SCH (09:02)
[2018-07-06] MEDS: ASPIRIN EC PO SCH (09:02)
[2018-07-06] MEDS: LASIX PO SCH (09:02)
[2018-07-06] MEDS: ZOCOR PO SCH (09:02)
[2018-07-06] MEDS: PRILOSEC PO SCH (09:03)
[2018-07-06] MEDS: COLACE PO SCH ×2 (09:03→20:55)
[2018-07-06] MEDS: LOVENOX SUBQ SCH ×2 (09:04→20:54)
[2018-07-06 09:05] LABS: BASO# 0.02 X1000 (0.0-0.2); BASO% 0.3 % (0.0-0.8); EOS# 0.42 X1000 (0.0-0.7); EOS% 5.8 % (0.0-10.0); HEMATOCRIT 39.4 % (42.0-52.0); HEMOGLOBIN 12.8 g/dL (14.0-18.0); LYMPH# 1.38 X1000 (1.2-3.4); LYMPH% 19.1 % (20.5-51.1); MCHC 32.5 g/dL (33-37); MCV 92.5 FL (81-99); MONO# 0.64 X1000 (0.11-0.59); MONO% 8.9 % (1.7-9.3); NEUT# 4.76 X1000 (1.4-6.5); NEUT% 65.9 % (42.2-75.2); PLT 149 X1000 (130-400); RBC 4.26 XMIL (4.7-6.1); RDW 13.5 % (11.5-14.5); WBC 7.22 X1000 (4.8-10.8)
[2018-07-06 09:16] LABS: HEMOGLOBIN A1C 7.9 % (4.8-6.0)
[2018-07-06 09:41] LABS: INR 1.12; PROTIME 15.4 Seconds (11.0-16.0)
[2018-07-06 09:46] LABS: ALB/GLOB RATIO 1.1; ALBUMIN 3.3 g/dL (3.5-5.0); CALCIUM 8.8 mg/dL (8.8-10.2); CREATININE 1.4 mg/dL (0.7-1.2); POTASSIUM 4.3 mmol/L (3.5-5.1); TOTAL BILIRUBIN 0.76 mg/dL (0.20-1.00); TOTAL PROTEIN 6.4 g/dL (6.3-8.3)
--- NOTE | 2018-07-06 14:17 | PROGRESS NOTE ---
DATE: 07/06/2018 INDICATION FOR PROLONGED HOSPITALIZATION: History of TIA, self-limited in a patient with atrial fibrillation and hypercoagulopathy requiring ongoing anticoagulation. He was found to be subtherapeutic on admission. He continues on b.i.d. low molecular weight heparin as well as some accelerated dose of Coumadin. His INR this morning 1.12. He is anticipated to have 8 mg of Coumadin tonight. Vitals at 7:41 this morning, blood pressure 161/56, pulse at 59, respirations at 16 and temperature 97.7 degrees saturating 99% on room air. I's and O's are not well all recorded or documented. Hemoglobin and hematocrit 12.8 and 39.4 with platelet count at 149,000. Both of these numbers are slightly down from admission. PT/INR at 15.4 and 1.12. Sodium 137, potassium, 4.3, chloride 99, bicarb at 29, BUN and creatinine at 21 and 1.4, and creatinine slightly up from yesterday at 1.3. Glucose at 126 to 178. He continues on basal bolus insulin. Hemoglobin A1c at 7.9. No outstanding studies or reports. PHYSICAL EXAMINATION: HEENT: Unremarkable. Cardiovascular: Regular rate and rhythm. Lungs: Clear. Abdomen: Soft. Extremities: Decreased peripheral edema. The presence of elastic compression hose are noted. He does have trace pitting pretibial edema through the elastic stockings. Cranial nerves 2-12 are grossly intact. Patient is alert and oriented x3 without any cognitive deficiencies. Even though the patient was admitted for TIA, he has had extensive workup historically with regards to cardiac function. This is in anticipation of aortic valve replacement back in 2015. He has not had a recent cardiac echo since September of 2015 at which point his EF was 40 to 45 percent with global hypokinesis. He is followed extensively by Cardiology. Last carotid Doppler ultrasound noted to be in September of 2015 as well with evidence of mild atherosclerotic disease of the distal common and internal carotid arteries without evidence of hemodynamically significant disease. Considering the patient's subtherapeutic presentation on anticoagulant, I do not feel that a cardiac echo and/or carotid ultrasound would be indicated. He is a contraindication to further diagnostic imaging including an MRI of the head secondary to chronic pacemaker placement. Certainly, consideration should be given to any recurrent events over the course of the next several months where patient would present with recurrent TIA or CVA while adequately anticoagulated. IMPRESSION: An 82-year-old male with TIA self-limited without any permanent and/or lasting neurologic deficit likely due to subtherapeutic anticoagulation for history of atrial fibrillation. Systolic congestive failure, and history of hypercoagulable state. He is currently on b.i.d. subcutaneous low-molecular weight heparin and oral Coumadin. PT/INR is anticipated for the morning. No new and/or additional recommendations at this time. The patient understands course of treatment and plan. I will not be rounding later this evening at 05:00 to 06:00 as discussed this morning, however, I will round in the morning late morning between approximately 10 in the morning and 12:00 in the afternoon. The patient understands course of treatment and plan. No further issues at this time. Note is dictated on the afternoon of rounds. cc: Yoni Turcios DO
[2018-07-06] MEDS: XALATAN 0.005% OPH SOLN RIGHT EYE SCH (20:56)
[2018-07-06] MEDS: TRESIBA FLEXTOUCH U-100 SUBQ SCH (20:56)
[2018-07-06] MEDS ORDERED: COUMADIN PO SCH (21:00)
[2018-07-06] MEDS ORDERED: HEPARIN 25,000 UNIT in NS 250 ML IV SCH (22:30)
--- NOTE | 2018-07-06 23:04 | PROGRESS NOTE ---
DATE: 07/06/2018 After hours CAT call note follow up. I was called at my residence with concern that the patient may be having a repeat TIA. A CAT call was called when the patient became dysarthric with slurred speech which is very similar to the way that he had a presented yesterday in the emergency room. The time the CAT call was performed called was 2114. I was in conversation with the CAT call provider at 2127 and arrived on the floor at approximately 2155. Patient reports receiving evening medicines and evening dose of Lovenox and Coumadin and upon the nurse leaving the room his speech became garbled and he was unable to communicate. At that point the nursing staff called CAT call and he was evaluated. EKG demonstrating atrial fibrillation. There was some concern with pupil dilation on the right. He has had some postsurgical changes and this pupil is not irregular. EKG reviewed showing left axis deviation as well as atrial fibrillation is somewhat different from admission EKG which demonstrates atrial sensed paced rhythm. Exam fails to demonstrate any evidence of neurologic deficit and he is speaking appropriately. DISPOSITION: A lengthy conversation with the family regarding the fact that considering that he has presented with repetitive TIA like symptoms that it would be in his best interest for initiation of IV heparin and stop the b.i.d. dosing of Lovenox, we will continue with the oral Coumadin until he is therapeutic between 2.5 and 3.5 on his INR. I do think that a repeat CT scan would be of some value. I am more concerned about ongoing and stuttering course over the course of the next several days as we continue with additional diagnostic workup. I do feel after presenting with now a 2nd episode that further investigation with a cardiac echocardiogram and carotid ultrasound would be indicated. I have expressed to the family I am uncertain as to whether this will be available over the weekend but certainly if he continues to decline clinically this would be imperative. I have also tempered the family's expectations that despite adequate anticoagulation perhaps with increased risk for hemorrhage that the patient may still have repeated episodes and could even have a completed CVA despite aggressive anticoagulation. Certainly the initiation of IV heparin on top of what he has already received tonight increases his risk for a hemorrhagic event and we will wait 12 hours and start him on the IV heparin in the morning at 9 o'clock when he is scheduled to get his dose of low molecular weight heparin. Will start q.2 hour neurologic checks and move him to a higher level of care when a bed becomes available. The patient, the and the son and [id number] understand the course of treatment and plan, no further issues at this time. TIME SPENT: At the bedside approximately 35 to 40 minutes. cc: Yoni Turcios, DO
[2018-07-07 00:06] LABS: UR PROTEIN 10.2 mg/dL
[2018-07-07] MEDS: HUMALOG SUBQ SCH ×3 (06:21→16:43)
--- NOTE | 2018-07-07 07:44 | Diag Imaging Result Doc PS360 ---
EXAM: CT HEAD W/O CONTRAST 07/06/2018 HISTORY: acute neuro status change TECHNIQUE: This exam was performed using automated exposure control, adjustment of mA or kV according to patient size, and/or use of iterative reconstruction technique. COMMENT: The current examination is compared with 07/05/2018. There are calcifications in the vertebral arteries and the basilar and internal carotid arteries. There are some patchy white matter lucencies present bilaterally which were also present at the time the previous examination. There is no evidence of bleed or abnormal extra-axial fluid collection. The calvarium is intact. There is opacification of the right maxillary and multiple right ethmoid air cells with fluid present in the left maxillary sinus and mucosal thickening and fluid in the sphenoid sinuses particularly the right. The sinus changes were also present at the time the previous study. Otherwise, the appearance of the brain has not changed significantly. IMPRESSION: Atherosclerotic changes with chronic microvascular white matter disease. Sinusitis as described. No evidence of acute intracranial disease. Electronically signed by Lalo Carrasquillo 07/07/2018 7:42 AM
[2018-07-07 08:23] LABS: INR 1.43; PROTIME 18.6 Seconds (11.0-16.0)
[2018-07-07] MEDS: HEPARIN 25,000 UNIT in NS 250 ML IV SCH (09:12)
[2018-07-07] MEDS: ASPIRIN EC PO SCH (09:13)
[2018-07-07] MEDS: UROXATRAL PO SCH (09:13)
[2018-07-07] MEDS: ZOCOR PO SCH (09:13)
[2018-07-07] MEDS: PRILOSEC PO SCH (09:13)
[2018-07-07] MEDS: ZYLOPRIM PO SCH (09:14)
[2018-07-07] MEDS: BETAPACE PO SCH ×2 (09:14→20:59)
[2018-07-07] MEDS: AZOPT 1% OPHTH SUSP RIGHT EYE SCH ×2 (09:14→20:59)
[2018-07-07] MEDS: LASIX PO SCH (09:14)
[2018-07-07] MEDS: COLACE PO SCH ×2 (09:14→20:56)
[2018-07-07 09:18] LABS: ALB/GLOB RATIO 0.9; CALCIUM 8.8 mg/dL (8.8-10.2); CREATININE 1.6 mg/dL (0.7-1.2); POTASSIUM 4.1 mmol/L (3.5-5.1); TOTAL BILIRUBIN 0.56 mg/dL (0.20-1.00); TOTAL PROTEIN 6.4 g/dL (6.3-8.3)
--- NOTE | 2018-07-07 10:01 | PROGRESS NOTE ---
DATE: 07/07/2018 INDICATION FOR PROLONGED HOSPITALIZATION: Patient with recurrent TIAs. Date of rounds 07/07/2018. INTERVAL CHANGE IN HISTORY: Patient having had a recurrent event last night up on the floor. See particulars related to dictated note. Briefly, the patient was admitted 2 days ago for TIA symptoms involving slurred speech. He had a recurrence of these symptoms last night on the floor. I came in and evaluated him. He had totally resolved by the time I arrived. We have transitioned him to the ICU for a heparin drip and also ongoing neurologic surveillance. We will also be awaiting the results of cardiac echo and carotid ultrasound plus or minus neurologic consultation. He has remained otherwise stable and without any further events over the course of the night. He is now in the ICU in bed 12. VITAL SIGNS: This morning, blood pressure 158/75, pulse at 60, respirations of 12, saturating 97% on 2 L. Temperature is not well documented; however, at 3:48 this morning, he was 97.5 degrees. Intake and output, 2486 in and 1000 out for +1486. LABORATORY DATA: This morning, PT/INR are pending at the time of dictation. A 24 hour urine returns as 94 mg per 24 hours and a volume of 1900. IMAGING: A CT scan performed last night. Following his event is noted to be no interval change noted. Persistence of sinusitis and maxillary opacification is noted. PHYSICAL EXAMINATION: This morning.HEENT: Unremarkable. Cardiovascular: Irregularly irregular rhythm. Lungs: Clear. Abdomen: Soft. Extremities: Benign without edema. Neurological: Cranial nerves 2-12 are grossly intact. Patient is alert and oriented x3 without any cognitive deficiencies. IMPRESSION: An 82-year-old with recurrent transient ischemic attacks, initially thought to be secondary to subtherapeutic on INR for hypercoagulable state. He is being transitioned from b.i.d. dosing of low molecular weight heparin to a heparin drip without a bolus and will continue on supplemental Coumadin to an INR goal of 2-1/2 to 3-1/2. Elected to watch him in the ICU versus the [facility] for the next 24 hours for recurrence of neurologic symptoms. We will be pursuing a cardiac echo and a carotid ultrasound. We did discuss the possibility of neurology's opinion, but it may not be available until Monday of next week. There are no new and/or additional recommendations at this time. Patient and understand the course of treatment and plan. Note is dictated on the morning of rounds. cc: Yoni Turcios DO
[2018-07-07] MEDS: COUMADIN PO SCH (20:56)
[2018-07-07] MEDS: XALATAN 0.005% OPH SOLN RIGHT EYE SCH (20:58)
[2018-07-08] MEDS ORDERED: INSULIN PEN NEEDLES ONE (00:17)
[2018-07-08] MEDS: TRESIBA FLEXTOUCH U-100 SUBQ SCH ×2 (00:17→20:20)
[2018-07-08 04:55] LABS: BASO# 0.02 X1000 (0.0-0.2); BASO% 0.3 % (0.0-0.8); EOS# 0.34 X1000 (0.0-0.7); EOS% 5.3 % (0.0-10.0); HEMATOCRIT 37.2 % (42.0-52.0); HEMOGLOBIN 12.2 g/dL (14.0-18.0); IMM GRAN# 0.02 X1000 (0.0-0.04); IMM GRAN% 0.3 % (0.0-0.5); LYMPH# 1.68 X1000 (1.2-3.4); MCH 30.3 PG (27-31); MCHC 32.8 g/dL (33-37); MCV 92.5 FL (81-99); MONO# 0.74 X1000 (0.11-0.59); MONO% 11.4 % (1.7-9.3); MPV 11.4 FL (7.4-10.4); NEUT# 3.67 X1000 (1.4-6.5); NEUT% 56.7 % (42.2-75.2); PLT 130 X1000 (130-400); RBC 4.02 XMIL (4.7-6.1); RDW 13.5 % (11.5-14.5); WBC 6.47 X1000 (4.8-10.8)
[2018-07-08 05:18] LABS: INR 1.65; PROTIME 20.8 Seconds (11.0-16.0)
[2018-07-08] MEDS: HEPARIN 25,000 UNIT in NS 250 ML IV SCH ×2 (05:21→18:38)
[2018-07-08] MEDS: HUMALOG SUBQ SCH ×3 (06:32→16:27)
[2018-07-08] MEDS: ZOCOR PO SCH (08:22)
[2018-07-08] MEDS: UROXATRAL PO SCH (08:22)
[2018-07-08] MEDS: LASIX PO SCH (08:23)
[2018-07-08] MEDS: ASPIRIN EC PO SCH (08:24)
[2018-07-08] MEDS: ZYLOPRIM PO SCH (08:25)
[2018-07-08] MEDS: BETAPACE PO SCH ×2 (08:25→20:17)
[2018-07-08] MEDS: PRILOSEC PO SCH (08:25)
[2018-07-08] MEDS: COLACE PO SCH ×2 (08:27→20:14)
[2018-07-08] MEDS: AZOPT 1% OPHTH SUSP RIGHT EYE SCH ×2 (08:27→20:15)
[2018-07-08] MEDS ORDERED: COZAAR PO ONE (10:01)
--- NOTE | 2018-07-08 10:38 | PROGRESS NOTE ---
DATE: 07/08/2018 INDICATION FOR PROLONGED HOSPITALIZATION: Recurrent TIAs. He has now had 3 self-limited events over the past 3 days at 1 per day. These episodes are lasting less than 10 to 15 minutes, primarily manifested by garbling and slurring of speech. He has also been running slightly high on blood pressure, ranging between 132 to 168 systolically and 47 to about 105 diastolically. Last night, when I was contacted by the ICU staff, he was running in the 180s/100s. This spontaneously resolved back to a more appropriate level. Yesterday, the patient had a carotid ultrasound. The report is pending. He also had a cardiac echocardiogram. The report is pending, although preliminary over the phone was no evidence of overt valvular disease, normal appearing ejection fraction, and no signs of thrombus or vegetative lesions. Historical cardiac echocardiogram dated September of 2015 showing mild TR and mild left atrial enlargement at 4.9, left ventricle with some hypertrophic changes, and some decreased ejection fraction at 40-45% with global hypokinesis as well as bioprosthetic aortic valve. No obvious abnormalities at that time. It will be interesting to see what the followup cardiac echocardiogram demonstrates. We did discuss having opinion of hematology/oncology. He is still subtherapeutic, having been admitted with an INR of 1.0 and now 1.65. He is gradually going up and continues on a heparin drip per protocol. Other things to consider, could this be atypical seizure and could this also be related to recent right-sided sinus surgery. Multiple CT scans since admission have not changed but he has persistence of right-sided maxillary sinus disease. He remains afebrile. I have elected not to initiate any antibiotic therapy at this time. Vitals this morning, blood pressure 155/73, pulse at 62, saturating at 95% on 2 L, temperature 98.7 degrees, T-max 98.7 degrees. Is and Os cumulatively 3628 in and 2370 out for +1258. PHYSICAL EXAMINATION: HEENT: Unremarkable. Cardiovascular: Irregularly irregular rhythm without murmurs, gallops, or rubs. Lungs: With some wheezing suggested. No rhonchi. Poor inspiratory effort secondary to body habitus and position in bed. Abdomen: Benign. Extremities: Without edema. Some superficial areas in the right lower extremity, lower anterior tibial region are noted. Compression hose are in place and dressings are present. Neurologic: Cranial nerves 2-12 are grossly intact. LABORATORY DATA: For today including a CBC, white blood cell count of 6.47, hemoglobin and hematocrit 12.2 and 37.2, with platelets at 130,000. His platelets continue to drift downward. I am uncertain as to whether this represents Coumadin sensitivity and/or dilutional PT/INR at 20.8 and 1.65. Sugars ranging between 144 and 188. IMPRESSION: An 82-year-old with recurrent/daily transient ischemic attacks despite oral anticoagulation with Coumadin and intravenous infusion of heparin. Consider broadening the differential diagnosis to persistent right-sided maxillary sinusitis with potential complications versus seizure disorder versus hypertensive-mediated symptoms. Cardiac echocardiogram and carotid ultrasounds are pending at the time of dictation. PLAN: For today, initiation of low-dose angiotensin receptor hanane, losartan 25 mg once daily. Blood pressure goal less than 140 systolic as tolerated. I am concerned that if this represents clinically significant cerebrovascular disease, that drops to 120 to 130 might exacerbate symptoms. We will adjust the Coumadin up slightly this evening to 10 mg x1 dose with reassessment with a PT/INR in the morning. He continues on a statin. With regards to pulmonary, chest x-ray and initiation of nebulizer treatment with interval reassessment in the morning on exam. No new and/or additional recommendations at this time. The patient understands course of treatment and plan. No further issues. cc: Yoni Turcios,
--- NOTE | 2018-07-08 11:41 | Diag Imaging Result Doc PS360 ---
EXAM: CHEST-PORTABLE 07/08/2018 HISTORY: wheezing on exam TECHNIQUE: AP portable upright at 1109 COMMENT: There is no evidence of acute cardiac or pulmonary disease. There are postsurgical changes on the right. Compared to the previous study of 03/07/2017 there has been no significant change. IMPRESSION: Stable chest. Electronically signed by Lalo Carrasquillo 07/08/2018 11:39 AM
[2018-07-08] MEDS: DUONEB (A & A) INH SCH ×2 (15:49→22:30)
[2018-07-08] MEDS: COUMADIN PO SCH (20:14)
[2018-07-08] MEDS: XALATAN 0.005% OPH SOLN RIGHT EYE SCH (20:15)
[2018-07-09] MEDS: DUONEB (A & A) INH SCH ×4 (03:44→19:33)
[2018-07-09] MEDS: HUMALOG SUBQ SCH ×3 (06:15→15:14)
[2018-07-09] MEDS ORDERED: HEPARIN 25,000 UNIT in NS 250 ML IV SCH ×2 (06:45→07:36)
[2018-07-09] MEDS: BETAPACE PO SCH ×2 (08:04→20:15)
[2018-07-09] MEDS: LASIX PO SCH (08:05)
[2018-07-09] MEDS: COLACE PO SCH ×2 (08:05→20:14)
[2018-07-09] MEDS: UROXATRAL PO SCH (08:05)
[2018-07-09] MEDS: ZYLOPRIM PO SCH (08:06)
[2018-07-09] MEDS: PRILOSEC PO SCH (08:06)
[2018-07-09] MEDS: ZOCOR PO SCH (08:06)
[2018-07-09] MEDS: ASPIRIN EC PO SCH (08:06)
[2018-07-09] MEDS: AZOPT 1% OPHTH SUSP RIGHT EYE SCH ×2 (08:08→20:14)
[2018-07-09 09:31] LABS: INR 2.14; PROTIME 25.5 Seconds (11.0-16.0)
--- NOTE | 2018-07-09 09:41 | EKG Report ---
Test Performed on : 07/06/2018 9:19:12 PM Test Reason : 4N. No order in [place] Blood Pressure : / mmHG Vent. Rate : 068 BPM Atrial Rate : 066 BPM P-R Int : 000 ms QRS Dur : 152 ms QT Int : 480 ms P-R-T Axes : 000 -74 094 degrees QTc Int : 510 ms Atrial fibrillation. Left axis deviation Left ventricular hypertrophy with QRS widening Lateral infarct , age undetermined Inferior infarct , age undetermined Abnormal ECG When compared with ECG of 05-JUL-2018 11:33, (Unconfirmed) Atrial fibrillation. has replaced Electronic ventricular pacemaker Unconfirmed Result
[2018-07-09] MEDS: HEPARIN 25,000 UNIT in NS 250 ML IV SCH ×2 (11:49→15:06)
--- NOTE | 2018-07-09 12:08 | ECHO REPORT ---
ORDER DATE: 07/07/2018 ECHOCARDIOGRAPHIC MEASUREMENTS: 1. Interventricular septum 1.3. 2. Left ventricular posterior wall 1.3. 3. Diastolic diameter 5.6. 4. Left ventricular systolic diameter 3.9. 5. Left atrium 4.6. 6. Aorta 3.8. SUMMARY: 1. Aortic valve leaflet examination revealed bioprosthetic valve in the aortic position was stable. 2. Pulmonic valve was normal. 3. Tricuspid valve was normal. 4. Mitral valve was normal. 5. There is mild pulmonary regurgitation. 6. Pacing leads are noted in the right chamber. 7. There is biatrial enlargement. 8. There is mild mitral regurgitation. 9. Peak velocity across the aortic valve was less than 2 m/sec. There is no aortic stenosis or regurgitation. 10. There is moderate tricuspid regurgitation. Peak velocity across the tricuspid valve was 3.3 m/sec.. 11. Pulmonary artery systolic pressure of 53 mmHg. 12. Normal left ventricular cavity size. 13. Estimated ejection fraction of 55%. 14. There is inferior wall hypokinesis. Inferoseptal hypokinesis associated with diastolic dysfunction. 15. There is no pericardial effusion or obvious intracardiac mass or thrombus seen. cc: MD Yoni Hopkins DO
--- NOTE | 2018-07-09 18:58 | PROGRESS NOTE ---
DATE: 07/09/2018 INDICATION FOR PROLONGED HOSPITALIZATION: Ongoing medical management and Coumadin adjustment for hypercoagulable state resulting in daily/sequential transient ischemic attacks. SUBJECTIVE: Mr. Oswald has not had a TIA since Monday after having 3 in a row on , Monday, and Monday. He was ruled out for neurologic event yesterday and has not had a neurologic event today. He has remained hemodynamically stable with the exception of some isolated hypotension, this following the initiation of oral losartan. Historically, he has had problems with losartan secondary to dizziness at therapeutic and treatment doses of 100 mg. we will be making some adjustments accordingly. VITALS AT THE TIME OF ROUNDS: Blood pressure 146/66, respirations at 14, pulse at 71, saturating 95% on 2 L. I's and O's cumulatively for the hospitalization 6197 in and 4210 out for +1986. LABORATORIES: For today, including a PT/INR 25.5 and 2.14 for the INR. No chemistry and no CBC or urine is ordered at this time. Cardiac echo is reviewed demonstrating moderate amount of TR as well as elevated pulmonary pressures at 53 mmHg. When compared to historical study dated September 2015, pulmonary pressure was not well documented. EF was noted to be 40 to 45 percent. Mild TR has increased to moderate likely due to the presence of pulmonary hypertension. Cardiac echo dated November 2014 demonstrates pulmonary pressure at 58 mmHg. Carotid ultrasound is not readily available for review. Neurology has seen the patient today. ENT has seen the patient today and Hematology/Oncology has seen the patient today. Formal consultative opinions are not readily available for review. PHYSICAL EXAMINATION: HEENT: Unremarkable. Cardiovascular: Regular rate and rhythm with a systolic murmur. Lungs: Clear. There are no wheezes, rhonchi, or rales. Abdomen: Soft. Extremities: Without clubbing, cyanosis, or edema. Neurological: Cranial nerves 2-12 are grossly intact. The patient is alert and oriented x3 without any cognitive deficiencies. Day's events and chart is reviewed at the bedside with the patient and in attendance. IMPRESSION: An 82-year-old with hypercoagulable state with recurrent transient ischemic attacks. Formal recommendation for the addition of aspirin is noted, however, the patient has been on 325 mg of aspirin since his admission. We will make some adjustments in the antihypertensive to 12.5 mg of losartan twice daily as tolerated. He has had some hypotensive/asymptomatic episodes. Ideally keeping his systolic less than 140 would be preferred. Cardiac echo is reviewed with the patient. Carotid ultrasound is not readily available for review. His INR continues to increase with supplemental Coumadin and heparin drip. I suspect that once his INR is above 2.5, ideally between 3 and 3.5, he will be stable and clinically appropriate for discharge. I have no new and/or additional recommendations at this time. Note is dictated on the evening of rounds. cc: Yoni Turcios DO
[2018-07-09] MEDS: XALATAN 0.005% OPH SOLN RIGHT EYE SCH (20:14)
[2018-07-09] MEDS: TRESIBA FLEXTOUCH U-100 SUBQ SCH (20:14)
[2018-07-09] MEDS: COZAAR PO SCH (20:15)
[2018-07-09] MEDS ORDERED: COUMADIN PO ONE (21:00)
[2018-07-10] MEDS: DUONEB (A & A) INH SCH ×3 (03:12→15:49)
[2018-07-10] MEDS: HEPARIN 25,000 UNIT in NS 250 ML IV SCH (05:11)
[2018-07-10 05:46] LABS: BASO# 0.02 X1000 (0.0-0.2); BASO% 0.3 % (0.0-0.8); EOS# 0.52 X1000 (0.0-0.7); EOS% 7.6 % (0.0-10.0); HEMATOCRIT 40.1 % (42.0-52.0); HEMOGLOBIN 12.8 g/dL (14.0-18.0); IMM GRAN# 0.03 X1000 (0.0-0.04); IMM GRAN% 0.4 % (0.0-0.5); LYMPH# 1.43 X1000 (1.2-3.4); MCH 29.8 PG (27-31); MCHC 31.9 g/dL (33-37); MCV 93.3 FL (81-99); MONO# 0.79 X1000 (0.11-0.59); MONO% 11.6 % (1.7-9.3); MPV 11.9 FL (7.4-10.4); NEUT# 4.02 X1000 (1.4-6.5); NEUT% 59.1 % (42.2-75.2); PLT 144 X1000 (130-400); RDW 13.8 % (11.5-14.5); WBC 6.81 X1000 (4.8-10.8)
[2018-07-10 05:55] LABS: INR 2.84; PROTIME 31.8 Seconds (11.0-16.0)
[2018-07-10 06:11] LABS: ALB/GLOB RATIO 0.9; ALBUMIN 3.2 g/dL (3.5-5.0); CALCIUM 8.4 mg/dL (8.8-10.2); CREATININE 1.8 mg/dL (0.7-1.2); POTASSIUM 3.3 mmol/L (3.5-5.1); TOTAL BILIRUBIN 0.45 mg/dL (0.20-1.00); TOTAL PROTEIN 6.6 g/dL (6.3-8.3)
[2018-07-10] MEDS ORDERED: KLOR-CON PO ONE (06:55)
[2018-07-10] MEDS ORDERED: 1/2 NS + KCL 20 MEQ 1,000 ML IV SCH (07:00)
[2018-07-10] MEDS ORDERED: HEPARIN IV PRN (07:02)
[2018-07-10] MEDS: HUMALOG SUBQ SCH ×3 (07:25→16:55)
[2018-07-10] MEDS: ZOCOR PO SCH (08:32)
[2018-07-10] MEDS: COZAAR PO SCH (08:32)
[2018-07-10] MEDS: LASIX PO SCH (08:32)
[2018-07-10] MEDS: PRILOSEC PO SCH (08:32)
[2018-07-10] MEDS: UROXATRAL PO SCH (08:32)
[2018-07-10] MEDS: BETAPACE PO SCH (08:32)
[2018-07-10] MEDS: ASPIRIN EC PO SCH (08:32)
[2018-07-10] MEDS: AZOPT 1% OPHTH SUSP RIGHT EYE SCH (08:33)
[2018-07-10] MEDS: ZYLOPRIM PO SCH (08:33)
[2018-07-10] MEDS: COLACE PO SCH (08:33)
--- NOTE | 2018-07-10 09:30 | CONSULTATION ---
DATE OF CONSULTATION: 07/09/2018 REASON FOR CONSULTATION: TIAs. HISTORY OF PRESENT ILLNESS: This is an 82-year-old left-handed male with history of hypertension, diabetes, hyperlipidemia, hypercoagulable state, atrial fibrillation and pacemaker. He was admitted on 07/05/2018 with symptoms concerning for TIA. History is from the patient and attentive . Apparently he has been having episodes of TIA like symptoms for several years now. He has been on Xarelto and Eliquis and apparently failed those because he had continued TIAs while on these. About two years ago he was placed on Coumadin and says he did well with this without recurrence of symptoms. He had a sinus surgery recently and was off of Coumadin for about five days and during this time he had another typical event which brought him to the hospital. He reports all episodes involve slurred speech, difficulty with getting the words out, right lower facial droop and right arm and leg weakness. Symptoms last approximately 15 minutes before resolving. There is no jerking or shaking, no headache, no chest pain, shortness of breath or other symptoms. No visual symptoms. He was admitted, placed on Coumadin with a Lovenox bridge. He had another event the day after admission and another one the day after that. Last event was Monday. On Monday morning he was placed on a Heparin drip. His INR has been subtherapeutic but today it is just above 2. I spoke with his hose suspender cutter who said he would like his INR to be 3.5. Apparently the patient has had this type of episode while his INR was around 2.8 or so. He would like to keep the patient on the Heparin until his INR is higher. He also would like to reduce the full dose aspirin to low dose aspirin. The patient denies any history of seizure or definite stroke with residual symptoms. He denies having events with symptoms other than what was mentioned above. PAST MEDICAL HISTORY: Diabetes, hypertension, hyperlipidemia, hypercoagulable state, pacemaker, atrial fibrillation, renal insufficiency, history of prostate cancer, aortic valve surgery, cataract surgery with some sort of complication to the right eye. FAMILY HISTORY: Positive for congestive heart failure. No strokes or seizures. SOCIAL HISTORY: He is and his is at bedside. He is retired. Worked with [employer] at [email or web address]. He is a previous smoker. No alcohol or illicits. MEDICATIONS: Prior to admission include aspirin 325 mg daily, Coumadin as directed amongst others reviewed in the chart. ALLERGIES: Multiple listed in the chart and reviewed. REVIEW OF SYSTEMS: A balance of 12 was conducted and is otherwise negative except for that detailed in the HPI. PHYSICAL EXAMINATION: Vital signs: Afebrile. Blood pressure generally 120s to 160 systolic today/50s to 80s diastolic. There was one reading of 91/45. Pulse 60s. Respirations 20. 92% on 2 L nasal cannula. Mr. Oswald is sitting up in a chair. He is awake, alert and oriented. Speech is fluent. Attention and concentration intact. No language disturbance. No dysarthria. Follows simple and complex commands. Left, right digit distinction preserved. The right pupil is irregular and nonreactive; traumatic. Left pupil is 2 mm and with subtle reactivity to bright light. Gaze is conjugate. Extraocular movements are full. Visual bowman intact to direct confrontational testing. He can hear. Face symmetric with equal activation. Facial sensation reported intact. Tongue is midline. Palate elevates symmetrically. Shoulder shrug is full. No drift. Tone is equal in the limbs. Strength is preserved in the arms and legs and symmetric. He reports symmetric sensation to light touch and pinprick on the arms and legs. [id number], rapid alternating movements intact. Reflexes diminished in the lower extremities. No clonus. Plantar responses flexor. Reflexes 1+ at the biceps. I did not test his gait. DIAGNOSTICS: Head CT with no acute findings. Repeat head CT 07/06 with no acute findings. There is mention of calcifications in the vertebral arteries and the basilar and internal carotid arteries and there are chronic microvascular ischemic changes. This was reviewed personally. There is some at least mild generalized cerebral atrophy. Echocardiogram did not show evidence of intracardiac mass or thrombus. INR is 2.14 today. BUN 25. Creatinine 1.6. Blood sugars mid to upper 100s. A1c 7.9. ASSESSMENT AND PLAN: Episodic right hemiparesis, right lower facial droop and speech disturbance lasting approximately 15 minutes before complete resolution. This sounds most likely ischemic in nature and recurrent TIAs is a concern. Would also need to consider the possibility of seizure. Identical symptoms with each event is more suggestive of an atherosclerotic lesion over embolic events, but that could still be affected by his hyper- coagulable state. Recommend CTA of the head for further evaluation once he is able to go for this. I have ordered a routine EEG to be performed as well. I agree with reducing the aspirin from full dose to 81 mg daily. I understand the plan is to keep heparin going until his INR is more therapeutic. In this regard, I would maintain cautious blood pressure control to both reduce the possibility of hemorrhage but also to avoid hypotension which could potentially exacerbate a TIA. I would continue frequent Neuro checks at this time. Thank you for the consultation. Will follow. cc: MD Yoni Kelsey, DO REBECCAD
--- NOTE | 2018-07-10 10:37 | Carotid Study ---
DATE: 07/07/2018 PROCEDURE: Carotid duplex imaging. REQUESTING PHYSICIAN: Yoni Turcios DO. INTERPRETING PHYSICIAN: Stehpan Santiago MD. TECH: Chavez. INDICATIONS: TIA. EQUIPMENT: [employer] E9 ultrasound system with a 9LD transducer. OBSERVED DATA RIGHT LEFT Brachial Blood Pressure Carotid Pulse Bruits: Carotid/Sub DIAGRAM OF ULTRASOUND IMAGING R L RIGHT INT EXT INT EXT LEFT Dennis (cm/s) Dennis (cm/s) Subclavian 110/0 Subclavian 124/6 CCA Proximal 82/7 CCA Proximal 94/7 CCA Distal 64/5 CCA Distal 81/6 Bulb 74/5 Bulb 79/4 ICA Proximal 55/5 ICA Proximal 91/10 ICA Mid 64/7 ICA Mid 74/10 ICA Distal 76/10 ICA Distal 67/10 ECA 112/0 ECA 234/0 Vertebral 37/8 A Vertebral 34/9 A ICA/CCA Ratio 0.92 ICA/CCA Ratio 0.97 % Stenosis 0-39% % Stenosis 0-39% FINDINGS: Some atherosclerosis noted and there appears to be atherosclerosis in the external carotid artery on the left, but by strict velocity criteria there is no hemodynamically significant flow-limiting stenosis. Both vertebral arteries are antegrade flow. INTERPRETATION: Atherosclerosis but at this time no hemodynamically significant flow-limiting stenosis noted by strict velocity criteria. cc: MD Yoni Fu DO
--- NOTE | 2018-07-10 15:16 | PROGRESS NOTE ---
DATE: 07/10/2018 SUBJECTIVE: No major overnight events. He has had no recurrent neurologic events. Tolerating medications well. OBJECTIVE: Remains afebrile. Blood pressure recent 112 to 160 systolic. Pulse 50s to 60s. Respirations 18. 94% on 2L nasal cannula. Mr. Oswald is sitting up in bed. He is awake, alert, and oriented. No language disturbance. No dysarthria. Attention and concentration intact. Follows simple and complex commands. Gaze is conjugate. Ocular movements are full. He can hear. Face is symmetric with equal activation. Strength is preserved in the arms and legs and symmetric. DIAGNOSTICS: Routine EEG personally reviewed, normal. PT 31.8. INR today 2.84. PTT 46. BUN and creatinine are rising, today 32 and 1.8. Blood sugar is 140s to 180s. ASSESSMENT AND PLAN: Episodic right hemiparesis with right lower facial droop, dysarthria, and apparent language disturbance lasting approximately 15 minutes before complete resolution. Dominant hemisphere syndrome. Stable in recent days. Again, this sounds most likely to be an ischemic etiology. I would continue to treat as transient ischemic attacks. I would obtain CTA of the head once he is able to go for this. Otherwise, continue the low-dose aspirin. Continue close monitoring with neurologic checks while he is bridging to a more therapeutic INR. Continue cautious blood pressure management. cc: MD Yoni Kelsey, DO CAPPS
[2018-07-10 15:39] VITALS: BP 117/52
--- NOTE | 2018-07-10 19:51 | HEMO/ONC CONSULTATION ---
DATE: 07/09/2018 ADMITTING PHYSICIAN: Yoni Turcios DO. REQUESTING PHYSICIAN: Narciso Trotter MD. We appreciate this consult. CHIEF COMPLAINT: Positive lupus anticoagulant. HISTORY OF PRESENT ILLNESS: Mr. Obdulio Oswald is a pleasant 82-year-old male with a history of hypercoagulable state. The patient has been found to have a positive lupus anticoagulant. He has had recurrent TIAs and has been maintained on Coumadin, with a goal INR of 2.5 to 3.5. The patient was admitted after 3 consecutive days of presumed TIAs. The patient had stroke-like symptoms to include right upper and lower extremity weakness with dysphagia symptoms. Did not persist. The patient has no focal deficits at this time. We are consulted as the patient is known to us for management of anticoagulant. PAST MEDICAL HISTORY: 1. Positive lupus anticoagulant. 2. Chronic cholecystitis. 3. Chronic venous insufficiency. 4. Prostate cancer. 5. Hypertension. 6. Dyslipidemia. 7. Gout. 8. Diabetes mellitus type 2. 9. Pulmonary fibrosis. 10. Cardiac pacemaker placement. 11. Osteoarthritis. 12. Atrial fibrillation. 13. Renal insufficiency. PAST SURGICAL HISTORY: 1. Left ear surgery. 2. Back surgery. 3. TURP in 1997. 4. Lung surgery. 5. Pacemaker placement. 6. Cataract extraction. 7. Bunionectomy. 8. Aortic valve repair. SOCIAL HISTORY: The patient has a 90 pack-year history of smoking cigarettes. He does not use alcohol or illicit drugs. ALLERGIES: To Hyzaar, Atarax, Byetta and hydroxyzine. REVIEW OF SYSTEMS: A 14 point review of systems was obtained and is negative except for mentioned in HPI. PHYSICAL EXAM: General: Mr. Oswald is an 82-year-old, male sitting up on the side of the bed, slightly dyspneic, but otherwise in no acute distress. HEENT: Normocephalic, atraumatic. Mucous membranes pink and moist. Sclerae anicteric. Extraocular movements intact. Neck: Supple. Lungs: Clear to auscultation bilaterally. Chest expansion equal bilaterally. CV: S1, S2 is heard. No murmurs, rubs or gallops. Abdomen: Nondistended. Extremities: Without clubbing or cyanosis. He does have trace bilateral lower extremity edema. Dermatologic: No rashes, bruises or lesions. Neurologic: The patient is awake, alert, and oriented x3. He has no focal deficits. LABORATORY DATA: Hemoglobin 12.2, hematocrit 37.2, white blood cell count 6.47, platelets 130. PT is 25.5, INR 2.14, PTT 99.7. IMAGING STUDIES: CT of the head reveals no acute abnormality. MRI of the brain is currently pending. ASSESSMENT AND PLAN: 1. Right-sided weakness with slurred speech. CT of the head is negative for any acute abnormality. Likely related to recurrent transient ischemic attack. 2. Positive lupus anticoagulant. Currently on Coumadin. Patient's goal INR is 2.5 to 3.5. At this time, we would add aspirin 81 mg daily. We will continue to monitor as an outpatient. 3. Hypertension, well controlled on current medication. Blood pressure 145/72. 4. Dyslipidemia. The patient remains on a statin at this time. 5. We will follow along with you and make further recommendations pending outcomes. The above reflects the history, exam, assessment and plan of Dr. Leal. Dictated by FRANCK Olguin for Nic Leal MD cc: FRANCK Olguin MD Jeffrey A. Johnson, DO
[2018-07-10] MEDS ORDERED: COUMADIN PO SCH (21:00)
[2018-07-11] MEDS ORDERED: ASPIRIN PO SCH (09:00)
--- NOTE | 2018-07-11 09:08 | EEG REPORT ---
DATE: 07/09/2018 REFERRING: Juliet Gonzalez MD. HEALTH AND FITNESS PROFESSOR: Edita Evans. BACKGROUND INFORMATION AND TECHNIQUE: This is a digitally recorded routine EEG with video. HISTORY: An 82-year-old male patient with atrial fibrillation and hypercoagulable state admitted with recurrent TIA-like symptoms. An EEG is ordered to detect evidence of seizure. EEG FINDINGS: A moderately well-formed 8.5 Hz posterior dominant alpha rhythm is seen symmetrically in the occipital regions. The anterior background at maximum alertness consist of mixed alpha and beta range frequencies. No definite persistent focal slowing. No epileptiform discharges. No seizures. Hyperventilation was not performed. Photic stimulation did not alter the record. The patient becomes drowsy but stage II sleep is not seen. EKG demonstrates irregular intervals. IMPRESSION AND CLINICAL CORRELATION: Normal routine EEG in the awake and drowsy states. Of note, a normal EEG does not rule out epilepsy. cc: MD Yoni Kelsey DO MTDD
== END 2018-07-10 19:13 | disposition home or self-care (01) | DRG 69 ==
LOC: SUPCPDRO → ED 11:14 → 4N 19:49 → ICU 07-07 07:14 → 4N 07-10 05:24
PROVIDERS: ADMIT Internal Medicine; ATTEND Internal Medicine
CPT/HCPCS: 70450; 71010; 71045; 80053; 81001; 81050; 82607; 82948; 83036; 83735; 84156; 84484; 85025; 85610; 85730; 93005; 93010; 93306; 93880; 94640; 94761; 95816; 99285; 99291; A9270; C8929; J1644; J1650; J1815; J1940; J3480; J7030; J7050; Q9957; XXXXX

== ENCOUNTER 2018-08-15 20:05 | Inpatient (IN) ==
--- NOTE | 2018-08-15 20:36 | Diag Imaging Result Doc PS360 ---
EXAM: CT HEAD W/O CONTRAST 08/15/2018 HISTORY: stroke like symptoms TECHNIQUE: This exam was performed using automated exposure control, adjustment of mA or kV according to patient size, and/or use of iterative reconstruction technique. COMMENT: The vertebral arteries are calcified in the left vertebral artery is very tortuous. There is calcification in the basilar and both internal carotid arteries. There are patchy lucencies in the periventricular white matter bilaterally particularly in the frontal lobes and near the atria of the lateral ventricles. There are abnormal lucencies in the external capsules bilaterally. There is no evidence of bleed or abnormal extra-axial fluid collection. There is no evidence of mass effect. Compared to 07/06/2018 there is no evidence of significant change. There continues to be opacification of the right maxillary sinus. IMPRESSION: Chronic ischemic microvascular changes. No evidence of acute intracranial disease. Electronically signed by Lalo Carrasquillo 08/15/2018 8:34 PM
--- NOTE | 2018-08-15 20:38 | Diag Imaging Result Doc PS360 ---
EXAM: CHEST-PORTABLE 08/15/2018 HISTORY: stroke like symptoms TECHNIQUE: AP upright sitting at 2030 COMMENT: The inspiration is slightly less optimal than on 07/08/2018. The heart size is slightly enlarged. There are sternotomy wires. There is a line of sutures across the right upper lobe. Compared to the previous examination there has been no appreciable change. IMPRESSION: Stable chest. Electronically signed by Lalo Carrasquillo 08/15/2018 8:36 PM
[2018-08-15 21:16] LABS: BASO# 0.02 X1000 (0.0-0.2); BASO% 0.3 % (0.0-0.8); EOS# 0.54 X1000 (0.0-0.7); EOS% 6.9 % (0.0-10.0); HEMATOCRIT 41.3 % (42.0-52.0); HEMOGLOBIN 13.7 g/dL (14.0-18.0); LYMPH# 2.01 X1000 (1.2-3.4); LYMPH% 25.9 % (20.5-51.1); MCH 29.9 PG (27-31); MCHC 33.2 g/dL (33-37); MCV 90.2 FL (81-99); MONO# 0.56 X1000 (0.11-0.59); MONO% 7.2 % (1.7-9.3); MPV 11.5 FL (7.4-10.4); NEUT# 4.64 X1000 (1.4-6.5); NEUT% 59.7 % (42.2-75.2); PLT 174 X1000 (130-400); RBC 4.58 XMIL (4.7-6.1); RDW 13.5 % (11.5-14.5); WBC 7.77 X1000 (4.8-10.8)
[2018-08-15 21:26] LABS: INR 2.64; PROTIME 30.1 Seconds (11.0-16.0)
[2018-08-15 21:44] LABS: ALB/GLOB RATIO 1.1; ALBUMIN 3.6 g/dL (3.5-5.0); CALCIUM 8.9 mg/dL (8.8-10.2); CREATININE 1.8 mg/dL (0.7-1.2); POTASSIUM 3.9 mmol/L (3.5-5.1); TOTAL BILIRUBIN 0.69 mg/dL (0.20-1.00); TOTAL PROTEIN 6.9 g/dL (6.3-8.3)
--- NOTE | 2018-08-15 23:20 | PROVIDER DOCUMENTATION ---
This chart was entered by Ronel Tamayo Scribe, acting as scribe for Ortega Cleary MD. HPI-Neurological Disorder - General Chief Complaint: Stroke-Like Symptoms Stated Complaint: TIA -MINI STROKE Time Seen by Provider: 08/15/18 20:18 Source: patient, family Allergies/Adverse Reactions: Patient Allergies Allergy/AdvReac Type Severity Reaction Status Date / Time hydrochlorothiazide Allergy Unknown Verified 07/05/18 15:30 [From Hyzaar] hydroxyzine HCl * Allergy Unknown Verified 07/05/18 15:30 [From Atarax] ketoprofen [From Orudis] Allergy SWELLING Verified 07/05/18 15:30 losartan potassium * AdvReac Mild DIZZINESS Verified 07/09/18 18:26 [From Hyzaar] Home Medications: Home Medication List Medication Instructions Recorded Confirmed Last Taken Type Glimepiride 2 mg PO BID 05/13/14 07/06/18 02/09/17 07:00 History Omeprazole [Prilosec] 40 mg PO DAILY 05/13/14 07/06/18 02/09/17 07:00 History Sotalol [Betapace] 40 mg PO BID 05/13/14 07/06/18 02/09/17 07:00 History SIMVAstatin [Zocor] 20 mg PO MoWeFr@2100 #0 tablet 10/30/15 07/06/18 02/08/17 21:00 Rx Brinzolamide [Azopt] 1 drop OP BID 04/10/16 07/06/18 02/09/17 07:00 History Latanoprost [Xalatan] 2.5 ml OP QHS 04/10/16 07/06/18 02/08/17 22:00 History Alfuzosin HCl [Alfuzosin HCl ER] 10 mg PO DAILY 07/16/16 07/06/18 02/09/17 07:00 History Warfarin [Coumadin] 3 mg PO EVERY OTHER DAY #30 tab 03/13/17 07/06/18 Unknown Rx Allopurinol [Zyloprim] 200 mg PO DAILY tab 07/10/18 Unknown Rx Aspirin 81 mg PO DAILY chewtab 07/10/18 Unknown Rx Docusate Sodium [Colace] 100 mg PO BID cap 07/10/18 Unknown Rx Insulin Degludec [Tresiba 25 unit SUBQ QHS insuln.pen 07/10/18 Unknown Rx Flextouch U-100] Losartan [Cozaar] 12.5 mg PO BID #60 tab 07/10/18 Unknown Rx Warfarin Sodium [Coumadin] 10 mg PO QHS #14 tab 07/10/18 Unknown Rx - History of Present Illness-Neuro Nature of Presenting Problem: 82 yom presents w/ w/ c/o stroke symptoms. pt has slurred speech, difficulty speaking, and cannot answer questions. pt had 3 x tia last month. pt family called and was referred to er. is historian. Review of Systems - Adult - REVIEW OF SYSTEMS - ADULT Constitutional: reports: no symptoms reported. denies: chills, fever, fatique Eyes: reports: no symptoms reported Ears, Nose, Mouth & Throat: reports: no symptoms reported. denies: ear pain, hearing loss, hoarseness Cardiovascular: reports: no symptoms reported. denies: chest pain, poor circulation, syncope Respiratory: reports: no symptoms reported. denies: cough, shortness of breath Gastrointestinal: reports: no symptoms reported Genitourinary: reports: no symptoms reported Musculoskeletal: reports: no symptoms reported Integumentary: reports: no symptoms reported Neurological: reports: see HPI, slurred speech. denies: ataxia, dizziness/vertigo, headache/migraines, loss of balance, seizure, syncope, tremors Psychiatric: reports: no symptoms reported Endocrine: reports: no symptoms reported Hematologic/Lymphatic: reports: no symptoms reported Allergic/Immunologic: reports: no symptoms reported All Other Systems: Reviewed and Negative Past History - Adult - PAST MEDICAL HISTORY-ADULT Review of Records: reports: Old Records Reviewed, Nursing Assessment Review, Medications Reviewed, Social history reviewed & non-contributory. Major Childhood Illnesses: reports: denies history Cardiovascular: reports: HTN, hyperlipidemia, pacemaker Respiratory: reports: denies history Gastrointestinal: reports: GERD Obstetrical/Gynecological: reports: denies history Genitourinary: reports: denies history Musculoskeletal: reports: arthritis, other (gout) Neurological: reports: TIA Endocrine/Immune: reports: Diabetes, thyroid disorder Other Conditions: reports: cataract/glaucoma - PRIOR SURGERIES/PROCEDURES Surgical/Procedure History: reports: pacemaker, tonsillectomy - PRIOR HOSPITALIZATIONS Prior Hospitalizations: reports: none - IMMUNIZATION STATUS Childhood Immunizations: See Nurse Assessment Flu Vaccine: See Nurse Assessment - FAMILY HISTORY Family History: reviewed, not pertinent - SOCIAL HISTORY Smoking: non-smoker Substance Use: none/never Physical Exam- Neurological - Physical Exam-Neuro General Appearance: appears well, no apparent distress Eye Exam: bilateral eye: normal inspection HENMT: normocephalic/atraumatic Head Injury: no evidence of injury Neck: normal inspection Respiratory: no respiratory distress, no accessory muscle use Cardiovascular: regular rate, rhythm Abdominal Exam: non tender, soft Extremity: normal range of motion photostatic copy maker Exam: abnormal speech Coordination/Gait: normal finger to nose Motor/Sensory: no motor deficit, no sensory deficit Neurologic: photostatic copy maker II-XII nml as tested Integumentary: normal color Psych/Mental Status: normal mood/affect - Glascow Coma Scale Best Eye Response: (4) open spontaneously Best Verbal Response: (5) oriented Best Motor Response: (6) obeys commands Total Glascow Score: 15 Progress - PLAN OF CARE/RESULTS Progress/Plan/Lab Results: Vital Signs - 8 hr 08/15/18 20:08 Pulse Rate 66 Respiratory Rate 18 Blood Pressure 181/89 O2 Sat by Pulse Oximetry 93 L Laboratory Results - last 24 hr 08/15/18 08/15/18 08/15/18 20:55 21:00 21:00 WBC 7.77 RBC 4.58 L Hgb 13.7 L Hct 41.3 L MCV 90.2 MCH 29.9 MCHC 33.2 RDW Std Deviation 13.5 Plt Count 174 MPV 11.5 H Immature Gran % (Auto) 0.0 Neut % (Auto) 59.7 Lymph % (Auto) 25.9 [place] % (Auto) 7.2 Eos % (Auto) 6.9 Baso % (Auto) 0.3 Immature Gran # (Auto) 0.00 Neut # (Auto) 4.64 Lymph # (Auto) 2.01 [place] # (Auto) 0.56 Eos # (Auto) 0.54 Baso # (Auto) 0.02 PT INR PTT (Actin FS) Sodium 142 Potassium 3.9 Chloride 106 Carbon Dioxide 25 Anion Gap 11 BUN 24 H Creatinine 1.8 H Estimated GFR/1.73 m2 36 BUN/Creatinine Ratio 13 Glucose 227 H POC Glucose 215 H Calculated Osmolality 294 Calcium 8.9 Total Bilirubin 0.69 AST 16 ALT 13 Alkaline Phosphatase 141 H Troponin T Total Protein 6.9 Albumin 3.6 Globulin 3.3 Albumin/Globulin Ratio 1.1 08/15/18 08/15/18 21:00 21:00 WBC RBC Hgb Hct MCV MCH MCHC RDW Std Deviation Plt Count MPV Immature Gran % (Auto) Neut % (Auto) Lymph % (Auto) [place] % (Auto) Eos % (Auto) Baso % (Auto) Immature Gran # (Auto) Neut # (Auto) Lymph # (Auto) [place] # (Auto) Eos # (Auto) Baso # (Auto) PT 30.1 H INR 2.64 PTT (Actin FS) 40.0 Sodium Potassium Chloride Carbon Dioxide Anion Gap BUN Creatinine Estimated GFR/1.73 m2 BUN/Creatinine Ratio Glucose POC Glucose Calculated Osmolality Calcium Total Bilirubin AST ALT Alkaline Phosphatase Troponin T < 0.010 Total Protein Albumin Globulin Albumin/Globulin Ratio Orders Category Date Time Status Cardiac Monitoring DIRECTED Care 08/15/18 20:18 Active Finger Stick Blood Sugar (ED) DIRECTED Care 08/15/18 20:18 Active Misc. NRSG Communication Order DIRECTED Care 08/15/18 20:18 Active Oxygen Therapy- ED Nursing DIRECTED Care 08/15/18 20:18 Active Saline Loc NOW Care 08/15/18 20:18 Active CHEST-PORTABLE [RAD] Stat Exams 08/15/18 20:[address] HEAD W/O CONTRAST [CT] Stat Exams 08/15/18 20:18 Completed CBC WITH ELECTRONIC DIFF [HEME] Stat Lab 08/15/18 21:00 Completed COMPREHENSIVE METABOLIC PANEL [CHEM] Stat Lab 08/15/18 21:00 Completed PROTIME WITH INR [COAG] Stat Lab 08/15/18 21:00 Completed PTT [COAG] Stat Lab 08/15/18 21:00 Completed TROPONIN T Stat Lab 08/15/18 21:00 Completed URINALYSIS W/POSS RFLX CULT [URINALYSIS] Stat Lab 08/15/18 22:53 Ordered EKG [EKG] Stat Ther 08/15/18 20:18 Ordered Result Diagrams: 08/15/18 21:00 08/15/18 21:00 - EKG 1 Time of EKG reading by physician:: 20:19 EKG Read and Signed by:: Ortega Cleray EKG Interpretation (*Must complete 3 of following elements*): Abnormal Rate: 66 Rhythm: Atrial sensed ventricular paced rhythm w/prolonged av conduction [place]: normal IN Interval: shortened - XRAY 1 XRAY: Bilateral XRAY Study: Chest (EXAM: CHEST-PORTABLE 08/15/2018 HISTORY: stroke like symptoms TECHNIQUE: AP upright sitting at 2030 COMMENT: The inspiration is slightly less optimal than on 07/08/2018. The heart size is slightly enlarged. There are sternotomy wires. There is a line of sutures across the right upper lobe. Compared to the previous examination there has been no appreciable change. IMPRESSION: Stable chest. Electronically signed by Lalo Carrasquillo 08/15/2018 8:36 PM) Impression: Abnormal Comparison with other Films: no changes - CT/MRI 1 CT Study: Head (EXAM: CT HEAD W/O CONTRAST 08/15/2018 HISTORY: stroke like symptoms TECHNIQUE: This exam was performed using automated exposure control, adjustment of mA or kV according to patient size, and/or use of iterative reconstruction technique. COMMENT: The vertebral arteries are calcified in the left vertebral artery is very tortuous. There is calcification in the basilar and both internal carotid arteries. There are patchy lucencies in the periventricular white matter bilaterally particularly in the frontal lobes and near the atria of the lateral ventricles. There are abnormal lucencies in the external capsules bilaterally. There is no evidence of bleed or abnormal extra- axial fluid collection. There is no evidence of mass effect. Compared to 07/06/2018 there is no evidence of significant change. There continues to be opacification of the right maxillary sinus. IMPRESSION: Chronic ischemic microvascular changes. No evidence of acute intracranial disease. Electronically signed by Lalo Carrasquillo 08/15/2018 8:34 PM) Impression: Abnormal Comparison with other Films: no changes Departure - Departure Date of Disposition Decision: 08/15/18 Time of Disposition Decision: 23:18 DIAGNOSIS: TIA (transient ischemic attack) Disposition: ADMITTED INPATIENT 09 Certified Medical Emergency: Emergent Condition: Stable Referrals and Follow-Ups: Yoni Turcios DO [Primary Care Provider] - - Critical Care Note This patient required my direct & personal management of CC.: No Attestation - Physician/ SARI Attestation Patient care was provided by Advanced Practice Provider:: No The physician spent face to face time with patient:: Yes Advanced Practice Provider documentation review:: Supervising physician onsite and consulted in the evaluation and care of this patient. The physician did have a face to face encounter with the patient. This chart was documented by the indicated scribe, (Ronel Tamayo, [place]) and accurately reflects the services I performed and decisions made by me, Ortega Cleary MD, as attested by the provider's signature.
[2018-08-16] MEDS ORDERED: COUMADIN PO ONE ×2 (01:51→18:20)
[2018-08-16] MEDS: NS 1,000 ML IV SCH ×2 (03:20→18:21)
[2018-08-16] MEDS ORDERED: INSULIN PEN NEEDLES ONE (06:17)
[2018-08-16] MEDS: PRILOSEC PO SCH ×2 (06:18→08:21)
[2018-08-16] MEDS: UROXATRAL PO SCH ×2 (07:27→08:17)
[2018-08-16] MEDS: COLACE PO SCH ×3 (07:28→21:44)
[2018-08-16] MEDS: COZAAR PO SCH ×3 (07:28→21:44)
--- NOTE | 2018-08-16 07:58 | EKG Report ---
Test Performed on : 08/15/2018 8:19:59 PM Test Reason : Stroke like symptoms Blood Pressure : / mmHG Vent. Rate : 066 BPM Atrial Rate : 066 BPM P-R Int : 220 ms QRS Dur : 156 ms QT Int : 482 ms P-R-T Axes : 119 -70 092 degrees QTc Int : 505 ms Atrial-sensed ventricular-paced rhythm with prolonged AV conduction Abnormal ECG When compared with ECG of 06-JUL-2018 21:19, Electronic ventricular pacemaker has replaced Atrial fibrillation. Unconfirmed Result
--- NOTE | 2018-08-16 08:00 | HISTORY AND PHYSICAL ---
ATTENDING PHYSICIAN: Dr. Yoni Turcios ADMITTING PHYSICIAN: Dr. Yoni Turcios. CHIEF COMPLAINT: Recurrent TIA. HISTORY: Mr. Oswald is a pleasant 82-year-old gentleman, who carries a variety of diagnoses including but not limited to hypercoagulable state with requiring long-term anticoagulation, chronic cholecystitis, chronic venous insufficiency, history of prostate cancer, history of hypertension, dyslipidemia, gout, long-term use of insulin secondary to type 2 diabetes, pulmonary fibrosis, history of cardiac pacemaker, diabetes complicated by nephropathy, osteoarthritis of the left knee, atrial fibrillation and renal insufficiency. He was admitted to the internal medicine service on 07/05/2018 for a similar yet different event. He states that he was sitting in a chair at home and reports that his right upper extremity, specifically his hand, started to feel funny. He reports that he was having difficulty grabbing items such as the oxygen tube to his nose. He was able to get up without difficulty and go to the bathroom. He had no issues while he was out of the room, however when he came back and sat down he realized that he was unable to talk. This coincided with the right upper extremity dysfunction which is in fact a new combination, and sign not previously noted with historical events. This episode lasted approximately 15 minutes with involvement of the right upper extremity. However, the was able to get him in privately operated vehicle and bring him to the emergency room and he still had a speech deficit when he arrived. The right upper extremity dysfunction appeared to be fully resolved by the time he arrived to the Emergency Room. There was no evidence of any type of right lower extremity involvement, and the contralateral side left upper and lower were not involved. In the emergency room, he underwent some labs. Also, some diagnostic imaging which is essentially unremarkable. Last time he was discharged from the hospital Hematology/Oncology's recommendation was that we maintain his INR between 3 and 3.5 in light of his hypercoagulable state. His most recent INR was 3.1. In the emergency room, it was noted to be 2.6. He is noted to be slightly hypertensive and he has no other complaints or concerns. He denies any lightheadedness, any dizziness, any blurred vision, any headache or syncope. He will be admitted to the internal medicine service for overnight observation and further consideration for diagnostic workup and consultation. He is noted to be fully resolved from a neurologic standpoint during my exam in the emergency room. MEDICATIONS ON ADMISSION: 1. Lasix 40 mg once daily. 2. Sotalol 40 mg b.i.d. 3. Omeprazole 40 mg once daily. 4. Simvastatin 3 days a week. 5. Zosyn 10 mg daily. 6. Coumadin on a 3-4-4 schedule. 7. Azopt in the right eye 2 drops b.i.d. 8. Xalatan in the right eye 1 drop in the evening. 9. Cozaar 12.5 mg twice daily. This had recently been changed to 25 mg twice daily. 10. Allopurinol 200 mg once daily. 11. Aspirin 81 mg once daily. 12. Oxybutynin 5 mg b.i.d. Zoloft 25 mg once daily. ALLERGIES: 1. Orudis. 2. Hyzaar. 3. Hydroxyzine. FAMILY HISTORY: Noncontributory. PAST SURGICAL HISTORY: Tumor under the left tear in the . Lung surgery in 1987. Prostate surgery in 1991. Back surgery in 1993. Cataract surgery in 2000. Pacemaker in 2002. Pacemaker replacement in 2007. Silver bunionectomy in 2010. Aortic valve replacement in 2015. PAST MEDICAL HISTORY: Patient's last annual wellness visit noted to be in September of 2017. 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 Patient is also an active participant in our chronic care program. PHYSICAL EXAMINATION: VITAL SIGNS: Physical exam performed by myself in the emergency room. Vitals in the emergency room, blood pressure 176/77, pulse at 65, saturating 97% and weight at 265. HEENT: Normocephalic and atraumatic. Pupils are equal and reactive to light and accommodation. There is some droop of the right eyelid. This is baseline in nature. Cranial nerves are assessed at the bedside and are grossly intact. CARDIOVASCULAR: Regular rate and rhythm by monitor. This is a paced rhythm. There are no murmurs, gallops, or rubs. LUNGS: Clear. ABDOMEN: Soft, some nonspecific tenderness is appreciated in the right lower quadrant without rebound, guarding, or rigidity. EXTREMITIES: Noted to have some nonspecific erythematous changes at the right ankle with 1+ trace pretibial edema right greater than left. GENITOURINARY/RECTAL: Not performed at this time. LABORATORY: White blood cell count 7.77. Hemoglobin and hematocrit at 13.7 and 41.3 with platelets at 174,000. PT/INR at 30.1 and 2.64. Sodium 142, potassium at 3.9, chloride 106, bicarb at 25. BUN and creatinine at 24 and 1.8. Historically, at the time of discharge, BUN was 32 and creatinine was 1.8. These are relatively stable over the past 4 to 5 weeks. Glucose at 217. Calcium at 8.9. Liver associated enzymes are normal. Alkaline phosphatase at 141. Albumin at 3.6. DIAGNOSTIC STUDIES: Imaging of the head dated 08/15/2018 as compared to previous study dated 07/06/2018. Chronic ischemic microvascular changes are noted. There is no evidence of intracranial bleed or extra-axial fluid collection. No evidence of mass. There continues to be opacification of the right maxillary sinus. Last cardiac echo noted to be 07/07/2018 at his last admission with findings consistent with an ejection fraction of 55%. Elevated pulmonary pressures at 53 mmHg. Moderate amount of tricuspid regurgitation. Bilateral atrial enlargement, mild pulmonary regurgitation. Mitral valve appearing normal. Aortic valve with prostatic valve in position, and no evidence of abnormalities. There was noted to be some inferior hypokinesis and inferior septal hypokinesis secondary to diastolic dysfunction. No pleural effusion or intracardiac thrombus or mass. Carotid ultrasound performed at last admission on 07/07/2018 demonstrating some atherosclerotic changes in the external carotid artery on the left, but by strict velocity criteria there does not appear to be any hemodynamically significant flow limiting stenosis. Vertebral arteries demonstrate antegrade flow bilaterally. Last CT scan of the chest noted to be June of 2017. This in the context of prostate cancer and history of renal failure. Findings consistent with nonspecific mediastinal adenopathy when compared to January of 2015 severe emphysematous changes and calcified stone within the gallbladder, and degenerative changes throughout the thoracic spine. IMPRESSION: An 82-year-old with recurrent TIA's despite aggressive and therapeutic anticoagulation. He carries a diagnosis of positive lupus anticoagulant. During the last hospitalization, low-dose aspirin was added and he has continued on that regime with no further events until approximately 4 to 6 weeks later presenting with symptoms as mentioned in the HPI. Previous diagnostic workup is noted in the chart. I am uncertain as to whether we can offer anything else to the patient at this point. Perhaps increasing his aspirin to 325 mg as opposed to 81 mg. Previous neurologic opinion not offering any additional recommendations for risk management reduction or stroke prevention. Previous echo failing to demonstrate any evidence of patent foramen ovale although this was not a dedicated Bubble study. We will continue to observe over the course of the next 12 to 24 hours. The last admission he was here within 48 to 72 hours, he had another event which facilitated transfer down to the intensive care unit for 2 additional days of monitoring. He neurological improved, and did return back to his baseline without any neurologic deficit at the time of discharge. The patient understands the course of treatment and plan. No further issues at this time. Note is dictated on the morning following admission. cc: Yoni Turcios DO
[2018-08-16 08:07] LABS: INR 2.7; PROTIME 30.6 Seconds (11.0-16.0)
[2018-08-16] MEDS: ZYLOPRIM PO SCH (08:14)
[2018-08-16] MEDS: BETAPACE PO SCH ×2 (08:15→21:44)
[2018-08-16] MEDS: AZOPT 1% OPHTH SUSP RIGHT EYE SCH ×2 (08:16→21:46)
[2018-08-16] MEDS: ASPIRIN PO SCH (08:21)
[2018-08-16] MEDS: DITROPAN PO SCH ×2 (08:21→21:45)
[2018-08-16] MEDS: ZOLOFT PO SCH (08:21)
[2018-08-16 08:30] LABS: PSA SCREEN 0.69 ng/mL (0.00-6.22)
[2018-08-16] MEDS ORDERED: ASPIRIN PO SCH (09:00)
--- NOTE | 2018-08-16 13:40 | CONSULTATION ---
DATE OF CONSULTATION: 08/16/2018 REASON FOR CONSULTATION: Transient ischemic attack. HISTORY OF PRESENT ILLNESS: This is an 82-year-old left-handed male with multiple vascular risk factors as well as atrial fibrillation, pacemaker, and a significant hypercoagulable state. He was last here in early June for recurrent TIA's. History is from the patient. He reports last night he was feeling relatively well. He went to use the restroom and realized he could not pull his clothes back up with his right hand and arm because of weakness and numbness. He could not close his hand and grab his clothing. He was able to manage eventually. He walked towards the sun room but had to sit and rest in the den instead. He then realized his speech was slurred and noted the same as well as difficulty with getting his words out. He knew what he wanted to say. He understood others. The symptoms lasted about 15 minutes, and were beginning to clear as he arrived in the emergency department. His speech lingered slightly longer. Currently, he is asymptomatic and at baseline. Head CT showed chronic microvascular ischemic changes, but no evidence of acute findings. Labs revealed INR of 2.64 with a PT of 30. I believe the goal for him was closer to 3.5 during my last discussion with his snaker. The patient has had similar episodes in the past mostly associated with speech difficulty. I had documented he had right sided symptoms in the past although the patient today tells me he does not recall having symptoms involving his right arm before. His symptoms always resolve in around 15 minutes or so. PAST MEDICAL HISTORY: Diabetes. Hypertension. Hyperlipidemia. Hypercoagulable state. Pacemaker. Atrial fibrillation. Renal insufficiency. History of prostate cancer. Aortic valve surgery. Cataract surgery with complication in the right eye, and he is left with residual very poor vision there as well as an irregular nonreactive pupil. FAMILY HISTORY: No strokes or seizures. Positive congestive heart failure. SOCIAL HISTORY: He is and lives with his . He has I believe 3 dogs. He is retired. He used to work with the [employer] at [employer] Previous smoker. No alcohol or illicit's. MEDICATIONS: Included Coumadin as well as aspirin 81 mg. ALLERGIES: Multiple listed and reviewed in the chart. REVIEW OF SYSTEMS: A balance of 12 was conducted, and is otherwise negative except that detailed in the HPI. PHYSICAL EXAMINATION: Vital Signs: Afebrile. Blood pressure 181/89 on admission, current 128/65, pulse 50s to 60s generally, respirations 12 and 97% on room air. General: Mr. Oswald is supine in bed with head of bed elevated. He is awake, alert and oriented. No language disturbance on bedside testing. No dysarthria. Follows simple and complex commands consistently, left and right and digit distinction. Right eye pupil is irregular and nonreactive. Left eye is about 3 mm and reactive to bright light. Extraocular movements are full. Visual bowman are intact to direct confrontational testing. Again, he does not see well out of the right eye however. Face symmetric with equal activation. Facial sensation reported intact. Tongue is midline. Palate elevates symmetrically. He can hear. Shoulder shrug is full. Tone is equal in the limbs. No pronator drift. Strength is symmetric and preserved in the arms and legs both distally and proximally. He reports symmetric sensation to light touch and pinprick on the arms and legs. Reflexes are absent at the ankles and knees. 1+ at the biceps. No clonus. Plantar response is flexor. [id number] rapid alternating movements are symmetric. DIAGNOSTICS: Head CT noncontrast showed no acute findings. There was chronic microvascular ischemic changes noted personally reviewed. Carotid Doppler's from last admission showed 0 to 39 percent bilaterally. Echocardiogram from last admission showed no obvious intracardiac mass or thrombus. Routine EEG from last admission was normal. LABORATORY: Reviewed in the chart. INR 2.64 on admission, and today 2.7. BUN 24, creatinine 1.8 and blood sugars 180's to 200's. ASSESSMENT AND PLAN: Mr. Oswald appears to have had another TIA with right arm weakness, numbness and speech disturbance again lasting roughly 15 or so minutes before complete resolution. Recurrent symptoms localized to the same vascular territory is suggestive of an atherosclerotic lesion which could be affected by his hypercoagulable state. His INR was 2.6 on admission though I believe his goal was said to be closer to 3.5 though I am not certain about that. The patient needs a CTA of the head for further evaluation, and I would recommend that. I would still favor aspirin over Plavix, and I would not suggest dual anti-platelet therapy. I understand there was some discussion about increasing the aspirin from 81 mg to 325 mg. I discussed this with the patient today as he asked me about this. While the higher dose could be tried, it does not definitely confer more protection against future ischemic events compared to the lower dose, and it has the potential to increase risk of bleeding. I would defer to the primary and snaker regarding the patient's goal INR and plans to achieve that goal. Continue managing his other risk factors including hyperlipidemia with high potency statin therapy if he can tolerate. He will need aggressive blood glucose control. Thank you for the consultation. cc: MD Yoni Kelsey, DO REBECCAD
--- NOTE | 2018-08-16 18:53 | HEMO/ONC CONSULTATION ---
DATE: 08/16/2018 ADMITTING PHYSICIAN: Dr. Yoni Turcios. REQUESTING PHYSICIAN: Dr. Yoni Turcios. We appreciate this consult. CHIEF COMPLAINT: Positive lupus anticoagulant. HISTORY OF PRESENT ILLNESS: Mr. Obdulio Oswald is an 82-year-old male known to Dr. Leal, with a history of recurrent transient ischemic attacks on Coumadin secondary to positive lupus anticoagulant. The patient has been followed in clinic with no significant events on Coumadin. The patient's INR has been therapeutic. The patient reports on the day of admission, he was sitting in his armchair and began having right upper extremity weakness. The patient reports that he stood up and walked into the room where his was and began to talk but was unable to do so. The patient does have a history of TIAs with his last event being 07/05/2018. Mr. Oswald's brought him to [facility] Emergency Department where he was admitted for likely TIA as the patient had no lasting deficits. CT of the head was obtained which revealed chronic microvascular changes and no acute disease. On admission, the patient's INR was found to be 2.64. We are consulted as the patient is well known to us. PAST MEDICAL HISTORY: 1. Positive lupus anticoagulant. 2. Chronic cholecystitis. 3. Chronic venous insufficiency. 4. Prostate cancer. 5. Hypertension. 6. Dyslipidemia. 7. Gout. 8. Diabetes mellitus type 2. 9. Pulmonary fibrosis. 10. Osteoarthritis. 11. Atrial fibrillation. 12. Renal insufficiency. PAST SURGICAL HISTORY: 1. Permanent pacemaker placement. 2. Prostatectomy. 3. Back surgery. 4. Cataract extraction. 5. Bunionectomy. 6. Aortic valve replacement. 7. Left ear tumor removal. 8. Lung surgery. MEDICATIONS ON ADMISSION: 1. Lasix. 2. Sotalol. 3. Omeprazole. 4. Simvastatin. 5. Zosyn. 6. Coumadin. 7. Azopt. 8. Xalatan. 9. Cozaar. 10. Allopurinol. 11. Aspirin. 12. Oxybutynin. 13. Zoloft. ALLERGIES: Orudis, Hyzaar, and hydroxyzine. REVIEW OF SYSTEMS: A 14-point review of systems was negative except for as mentioned in HPI. PHYSICAL EXAMINATION: General: Mr. Oswald is a very pleasant, 82-year-old male lying supine in bed, in no immediate distress. HEENT: Normocephalic, atraumatic. Mucous membranes pink and moist. Sclerae anicteric. Extraocular movements intact. Neck: Supple. Lungs: Clear to auscultation bilaterally. Chest expansion equal bilaterally. Cardiovascular: S1, S2 is heard. No murmurs, rubs, or gallops. Abdomen: Nondistended. Extremities: No clubbing or cyanosis. The patient does have 1+ bilateral lower extremity edema. Dermatologic: No rashes, bruises, or lesions. Neurologic: The patient is awake, alert, and oriented x3. He has no focal deficit. LABORATORY DATA: INR 2.70. On 08/15, hemoglobin 13.7, hematocrit 41.3, white blood cell count 7.77, platelets 174,000. Sodium 142, potassium 3.9, chloride 106, CO2 is 25, BUN 24, creatinine 1.8, and glucose is 227. Calcium is 8.9. Alkaline phosphatase is 141, with all other liver function tests being within normal limits. IMAGING STUDIES: CT of the head reveals chronic microvascular changes and no acute distress. Chest x-ray is stable. ASSESSMENT AND PLAN: 1. Recurrent transient ischemic attacks on Coumadin with positive lupus anticoagulant. We would agree with aspirin increased to 325 mg daily. Neurology has been consulted. We will follow neurology recommendation concerning anticoagulation. We will await Dr. Gonzalez's recommendation. 2. Prostate cancer with a Deborah score of 4 + 4 equals 8, status post external beam radiation. Prostate-specific antigen has been within normal limits. 3. We will follow along with you and make further recommendations pending outcomes. The above reflects the history, exam, assessment, and plan for Dr. Leal. Dictated by FRANCK Olguin for Nic Leal MD cc: FRANCK Olguin MD Jeffrey A. Johnson, DO
[2018-08-16] MEDS ORDERED: XALATAN 0.005% OPH SOLN RIGHT EYE SCH (21:00)
[2018-08-16] MEDS ORDERED: TRESIBA FLEXTOUCH U-100 SUBQ SCH (21:00)
[2018-08-17] MEDS: PRILOSEC PO SCH ×3 (05:51→07:00)
[2018-08-17 07:57] LABS: INR 2.59; PROTIME 29.7 Seconds (11.0-16.0)
[2018-08-17 08:00] LABS: ALB/GLOB RATIO 0.9; ALBUMIN 3.1 g/dL (3.5-5.0); CALCIUM 8.5 mg/dL (8.8-10.2); CREATININE 1.4 mg/dL (0.7-1.2); POTASSIUM 3.8 mmol/L (3.5-5.1); TOTAL BILIRUBIN 1.1 mg/dL (0.20-1.00); TOTAL PROTEIN 6.5 g/dL (6.3-8.3)
[2018-08-17 08:13] VITALS: BP 152/67
[2018-08-17] MEDS: COLACE PO SCH (09:11)
[2018-08-17] MEDS: ASPIRIN PO SCH (09:11)
[2018-08-17] MEDS: COZAAR PO SCH (09:11)
[2018-08-17] MEDS: DITROPAN PO SCH (09:11)
[2018-08-17] MEDS: ZYLOPRIM PO SCH (09:11)
[2018-08-17] MEDS: BETAPACE PO SCH (09:11)
[2018-08-17] MEDS: ZOLOFT PO SCH (09:11)
[2018-08-17] MEDS: UROXATRAL PO SCH (09:12)
[2018-08-17] MEDS: AZOPT 1% OPHTH SUSP RIGHT EYE SCH (09:12)
[2018-08-17] MEDS: NS 1,000 ML IV SCH (09:14)
--- NOTE | 2018-08-17 09:40 | PROGRESS NOTE ---
DATE: 08/17/2018 SUBJECTIVE: Mr. Oswald had an episode of right arm tingling, possibly weakness, gait difficulty, speech difficulty, resolving in 20 to 25 minutes 2 days ago. He reports onset just after he finished using the commode. He could not get his pants up easily with his right hand. Gait was affected, but he did not notice definite right leg weakness or clumsiness. He had trouble forming his words, but no trouble understanding what said to him. There was no associated headache, vision disturbance, altered consciousness, memory gap. By the time he got to the hospital, he was much improved. He had similar episode affecting left limbs 3 days in a row in 2016 and then an episode affecting right limbs. He had episode each of 3 consecutive days about 6 weeks ago with speech difficulty but not definite focal motor or sensory feature. The episode yesterday is at least the 8th episode that we have had reported, discussed and evaluated in the last several years, and he has had about as many other episodes not evaluated soon after spell. He has never had documented ischemic change on brain imaging. MRI is not an option because of pacemaker placement. CT angiogram is not an option right now because of his renal function, but might be considered later. EEG at last visit was unremarkable. We discussed the possibility that these might be ischemic episodes in light of his risk factors, but the episodes he has, the less likely serious ischemic etiology seems to be. Seizure and migraine would be other possibilities. We discussed prolonged ambulatory EEG, and he and Dr. Turcios will consider that. I encouraged him to continue aggressive management of his cerebrovascular disease risk factors. Thanks for asking Neurology to see Mr. Oswald. I will be glad to see him again inpatient or outpatient if needed. cc: MD Yoni Parkinson III, [facility] HOSPITALKorina
[2018-08-17] MEDS ORDERED: ZOCOR PO SCH (21:00)
--- NOTE | 2018-08-18 05:04 | DISCHARGE SUMMARY ---
ADMISSION DATE: 08/16/2018 DISCHARGE DATE: 08/17/2018 DISCHARGE DIAGNOSES: 1. Transient neurologic event, suspect for transient ischemic attack. Further consideration for possible occult/recurrent seizure activity is also noted. 2. Lupus anticoagulant positivity requiring long-term anticoagulation. Therapeutic INR on admission at 2.64. Discharge INR at 2.59 with adjustment in Coumadin to include 7 mg on 08/17 and then 6 mg on 08/18 and , with repeat INR anticipated for 08/20, Monday. 3. Anemia. 4. Renal insufficiency, acute on chronic, with improvement at time of discharge. Admission creatinine 1.8. Discharge creatinine 1.4. 5. Right upper extremity paralysis/dysfunction. A new neurologic component of transient neurologic event. PROCEDURES DURING ADMISSION: CT scan on admission demonstrating chronic ischemic microvascular changes with no evidence of acute intracranial disease. This compared to previous study dated 07/16/2018. CONSULTATIONS: During admission including Neurology and Hematology/Oncology. HOSPITAL COURSE: The patient was admitted on the 08/15 after suffering a neurologic event manifested by right upper extremity dysfunction and paralysis lasting approximately 15 minutes, further complicated by difficulty with speech. By the time he arrived to the emergency room, the speech component and the upper extremity component had resolved. The patient was admitted approximately 4 to 6 weeks ago with a similar experience and had a subsequent event while he was admitted. His Coumadin was adjusted for an INR 3 to 3.5 and he was discharged to home. He has been fine for the past 3 to 4 weeks, until this recent event. Based on his previous recurrence following his admission and with the new component of right upper extremity dysfunction, it was felt that overnight observation was appropriate. Hematology/Oncology and Neurology were reconsulted. The patient has a pacemaker which precludes further MRI evaluation of the head, and has acute on chronic renal insufficiency which precludes any type of cerebral angiogram to better define intracranial vascular anatomy. Recommendations during this admission include increasing aspirin to 325 mg up from 81 mg, continuing Coumadin with a therapeutic window between 2.5 and 3.5, and following clinically. Neurology at the bedside on the time of discharge recommending consideration for occult seizure disorder. EEG at last admission was unremarkable. They have recommended ambulatory EEG 48 to 72 hours in duration, and perhaps a 2nd opinion either at a specialty seizure and/or Stroke Clinic. On the morning of discharge, the patient is hemodynamically stable. Blood pressure 152/67, pulse at 61, respirations at 16, temperature at 97.9 degrees. Patient's weight on admission 265 pounds. MEDICATIONS AT THE TIME OF DISCHARGE: Alfuzosin 10 mg once daily, allopurinol 200 mg once daily, aspirin 325 mg once daily, Azopt drops as directed, Colace 100 mg twice daily, Tresiba 25 units subcu at bedtime, Xalatan drops as directed, losartan 25 mg twice daily, omeprazole 20 mg once daily, Ditropan 5 mg b.i.d., citrulline 25 mg once daily, simvastatin 20 mg Monday, Monday, Monday, sotalol 40 mg b.i.d., and Coumadin adjustment to include a 7 mg on Monday night, 08/17 and 6 mg on Monday and Monday night, with a re-evaluation of PT/INR at home via remote device. These reports will come back to the office on Monday for further adjustment. DISPOSITION: The patient is released to home with the only change in his medication, increasing aspirin from 81 mg to 325 mg. we did discuss the possibility of arranging for outpatient ambulatory EEG monitoring and/ or secondary/subspecialty opinion with regards to recurrent transient neurologic events. The and understand the course of treatment and plan. No further issues at this time. cc: Yoni Turcios DO
--- NOTE | 2018-08-19 10:31 | DISCHARGE SUMMARY ---
ADMISSION DATE: 08/16/2018 DISCHARGE DATE: 08/17/2018 DISCHARGE DIAGNOSES: 1. Recurrent transient ischemic attack, status post evaluation with cardiac echocardiogram, carotid Doppler ultrasound, head CT scan and EEG. 2. Acute/transient neurologic event while hospitalized on 07/06/2018, manifested by return of preadmission symptoms including slurred speech, CAT call called on the patient. The patient was subsequently transferred to the ICU for further monitoring. 3. Hypercoagulable state with positive lupus anticoagulant. 4. Anemia, not otherwise specified. 5. 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 Discharge INR is 2.8 with longterm goal between 3 and 3.5. 6. Diabetes, insulin dependent. Hemoglobin A1c is 7.9. Sugar ranging between 109 and 175. 7. Acute on chronic renal insufficiency with creatinine 1.4 to 1.8, worsening at the time of discharge. 8. Proteinuria, likely diabetic mediated. Twenty-four hour urine protein 194 mg and a total volume of 1900. Concentration at 10 mg/dL. CONSULTATIVE OPINIONS: Hematology/Oncology and Neurology. PROCEDURES DURING ADMISSION: CT scan of the head on admission with persistent right-sided sinusitis with atrophy, complicated by microvascular ischemic changes. A second CT scan of the head showing no interval change, this following CAT call on the floor for slurred speech. Carotid ultrasound performed on 07/07/2018 with atherosclerosis in the external carotid artery on the left but by strict velocity criteria, no hemodynamically significant/flow limiting stenosis. Vertebral arteries are noted to have antegrade flow. Echocardiogram performed on 07/07/2018 showing bioprosthetic valve. No abnormalities with pulmonic, tricuspid or mitral valve. Pacing leads in the right chamber. Evidence of bilateral atrial enlargement. No aortic stenosis or regurgitation. Moderate TR. Pulmonary pressure is elevated at 53 mmHg. Ejection fraction at 55% with inferior wall hypokinesis. No pericardial effusion or thrombotic mass. An EEG performed on 07/10/2018 demonstrating evidence of normal/routine EEG. HOSPITAL COURSE: The patient was admitted on 08/05/2018 for several preadmission events suggestive of recurrent TIA/transient neurologic event manifested primarily by slurred speech without any additional neurologic deficit. He had been off his Coumadin lately for sinus surgery, and it was felt that he was subtherapeutic and therefore at risk. He was admitted to the Internal Medicine Service for adjustment of INR with Coumadin dosing. The following day, he had another witnessed event, and it was felt prudent to move him to the Intensive Care Unit where he could be started on a heparin drip until his INR was in a therapeutic range. Hematology/Oncology was consulted, making recommendations for increasing the INR from a goal of 2.5 to 3.5 to 3.0 to 3.5. Neurology was also consulted, suggesting the possibility of not only TIA but also seizure. A CTA of the head was recommended as well as an EEG. The patient is contraindicated to CTA of the head secondary to renal insufficiency. An EEG was performed and was found to be unremarkable. Hematology/Oncology was also consulted for coagulation management. Aspirin 81 mg was added at the expense of increasing the INR from 2.5 to 3.5 to 3.0 to 3.5. DISCHARGE MEDICATIONS: Coumadin 10 mg on the evening of discharge with interval followup in the office the following day, Tresiba 25 units nightly at bedtime, Colace 100 mg b.i.d., losartan 12.5 mg b.i.d., allopurinol 200 mg every day, aspirin changed from full dose 325 to lower dose at 81, this again in light of a higher INR, Prilosec 40 mg once daily, sotalol 40 mg b.i.d., simvastatin 20 mg on Monday, Monday and Monday, Azopt eyedrops as directed, Xalatan eyedrops as directed, alfuzosin 10 mg once daily. Medications changed at the time of discharge including aspirin from 325 to 81. The patient's Tylenol was stopped, not needed. Coumadin dose was changed as above and will be adjusted as an outpatient. Lasix went from 80 mg a day to a lower dose of 40 mg a day. He is continued on glimepiride 2 mg twice daily. DISPOSITION: The patient is release with interval followup in the Internal Medicine Clinic the day following his discharge, and INR will be obtained at that time following single dose of 10 mg of Coumadin on the evening of discharge. Goal INR will be between 3.0 and 3.5. The patient and the understand the course of treatment and plan. No further issues at this time. cc: Yoni Turcios DO
== END 2018-08-17 11:35 | disposition home or self-care (01) | DRG 69 ==
LOC: ED 20:05 → 3N 08-16 02:50
PROVIDERS: ADMIT Internal Medicine; ATTEND Internal Medicine
CPT/HCPCS: 70450; 71010; 71045; 80053; 80061; 82607; 82746; 82948; 83090; 83721; 84153; 84207; 84425; 84484; 85025; 85610; 85730; 93005; 94761; 99285; A9270; G0103; J7030; XXXXX

== ENCOUNTER 2019-06-04 14:05 | Inpatient (IN) ==
[2019-06-04] MEDS ORDERED: DESYREL PO PRN (14:10)
[2019-06-04] MEDS ORDERED: ZOFRAN IV PRN (14:10)
[2019-06-04] MEDS ORDERED: COLACE PO PRN (14:10)
[2019-06-04] MEDS ORDERED: SALINE LOCK IV FLUID XX ONE (14:10)
[2019-06-04] MEDS: NS 1,000 ML IV SCH (15:57)
[2019-06-04] MEDS: ROCEPHIN 1 GM in NS 50 ML IV SCH (15:58)
[2019-06-04 16:26] LABS: INR 3.77; PROTIME 38.4 Seconds (11.0-16.0)
[2019-06-04 16:49] LABS: ALB/GLOB RATIO 0.9; ALBUMIN 3.2 g/dL (3.5-5.0); CALCIUM 9.1 mg/dL (8.8-10.2); CREATININE 3.2 mg/dL (0.7-1.2); TOTAL BILIRUBIN 1.64 mg/dL (0.20-1.00); TOTAL PROTEIN 6.7 g/dL (6.3-8.3)
[2019-06-04 17:11] LABS: POTASSIUM 5.1 mmol/L (3.5-5.1)
[2019-06-04] MEDS ORDERED: NS 500 ML IV ONE (18:12)
[2019-06-04] MEDS ORDERED: OFIRMEV 1000 MG/ISOTONIC SOLN 1,000 MG/100 ML BOTTLE IV PRN (18:20)
[2019-06-04] MEDS ORDERED: SODIUM CHLORIDE 0.9% INJ SCH (18:30)
[2019-06-04] MEDS: PEPCID IV SCH (19:36)
[2019-06-04] MEDS ORDERED: LEVAQUIN 250 MG in NS 50 ML IV ONE (20:32)
[2019-06-04] MEDS ORDERED: COUMADIN PO SCH (21:00)
[2019-06-04] MEDS ORDERED: COZAAR PO SCH (21:00)
[2019-06-04] MEDS: XALATAN 0.005% OPH SOLN RIGHT EYE SCH (21:39)
[2019-06-04] MEDS: AZOPT 1% OPHTH SUSP RIGHT EYE SCH (21:40)
[2019-06-04] MEDS: BETAPACE PO SCH (21:41)
[2019-06-04] MEDS: TRESIBA U SUBQ SCH (21:45)
--- NOTE | 2019-06-04 21:50 | HISTORY AND PHYSICAL ---
ATTENDING PHYSICIAN: Yoni Turcios DO ADMITTING PHYSICIAN: Yoni Turcios DO CHIEF COMPLAINT: Fever, confusion and weakness. HISTORY OF PRESENT ILLNESS: Mr. Oswald is a pleasant 83-year-old gentleman who has a past medical history of COPD with oxygen dependence, emphysema, BPH, hypertension, hypercoagulable state, dyslipidemia, gout, history of prostate cancer, personal history of TIA, presence of cardiac pacemaker, pulmonary fibrosis complicated by pulmonary hypertension, diabetes complicated by diabetic nephropathy, atrial fibrillation, chronic renal insufficiency and vitamin D deficiency who presents to the office for evaluation of altered mental status. The reports he awoke at 4:30 confused, yelling from the bathroom that he needed to go home, that they should start packing. Also from the bathroom he was yelling for an individual by the name of Stanislaw for nearly an hour. The was able to coax the individual back into bed and the patient became fixated on having to move the furniture. She noted at that time he felt feverish, and his fever was measured at 100.1 and spiked to 101.7. She has been medicating him with Tylenol through the day. In the office, the temperature is 97.1. The patient denies any change in bowel or bladder habits. He denies any nausea. He denies any abdominal pain, shortness of breath or chest pain. He is noted to have a markedly abnormal urine and an elevated white blood cell count. He is demonstrating clinical signs of SIRS plus or minus sepsis and is admitted to the internal medicine service for further diagnostic workup, management and treatment. ALLERGIES: Hyzaar, Medinex, Atarax, Byetta, hydroxyzine. MEDICATIONS ON ADMISSION: Azopt eyedrops 1 drop right eye twice daily, aspirin 325 mg once daily, Xalatan drops 1 in the right eye in the evening, Lasix 40 mg once daily, paroxetine 50 mg once daily, Coumadin as directed, Tresiba 30 units injected at bedtime, simvastatin 20 mg Monday, Monday and Monday, Pepcid AC as directed, oxybutynin 10 mg daily, NovoLog FlexPen 8 to 1 ratio maximum of 8 units per meal, sotalol 40 mg b.i.d., losartan 25 mg b.i.d. and allopurinol. Medications being stopped at the time of admission secondary to renal insufficiency: Allopurinol, losartan. FAMILY HISTORY: Father at 43, head and neck cancer. Mother in 2006, congestive heart failure. Brother Yordy at 73, congestive heart failure and colon obstruction. Patient is the sole survivor/member of his family. SOCIAL HISTORY: Patient is with 3 children, 2 biologic and 1 adopted, 5 grandchildren and 2 great-grandchildren. He has been for the second time for 43 years, having been in 1976, previously for 17 years, marriage #1. 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 He has been out of the workforce since 1997. The patient smoked 3 packs a day for nearly 30 years but quit in 1977. He denies any alcohol. PAST SURGERIES: Left ear in the s, back surgery in 1988, TURP in 1997, lung surgery in 1987, fractured right leg in the , pacemaker placement in 2002, pacemaker replaced in 2007, bilateral cataract surgery in 2003, sliver bunionectomy on the right in 2010, aortic valve repair in 2015. No surgery in 2016, no surgery in 2018 and no surgery in 2019. 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 PATIENT'S HOSPITALIZATIONS: 2007 for altered mental status and in 2016 for TIA and prostate biopsy positive for cancer and in 2015 for aortic valve repair. Patient has not been hospitalized since 2017. REVIEW OF SYSTEMS: Twelve-point review of systems as per HPI. Patient has recently been seen in the Internal Medicine Clinic for further adjustment in insulin with a continuous home glucose monitoring system. This has provided the patient more accountability with regards to dietary choices as well as benefit of feedback for insulin coverage. Patient's most recent creatinine on 02/20/2019 noted to be 1.1 down from previously at 2.1 in December of 2017 and 1.7 in May 2018. Last hemoglobin A1c greater than 8. PHYSICAL EXAMINATION: VITALS: In the office, blood pressure 122/60, pulse at 60, saturating 92% on 2 L, temperature at 97.1 degrees. Patient's weight at 259. Patient's most recent weight at 267. This would represent an 8 pound loss since the fall of 2018. GENERAL: Patient is a very lethargic but arousable. HEENT: Oral mucosa appears extremely dry and tacky. CARDIOVASCULAR: Regular rate and rhythm without murmur or rub. LUNGS: Clear without wheezes, rhonchi, or rales. ABDOMEN: Soft and nontender; however, the exam is somewhat limited as the patient is sitting in a wheelchair. EXTREMITIES: With 1+ pitting edema bilaterally. NEUROLOGICAL: Cranial nerves 2 through 12 are not assessed. Patient is somewhat communicative but lethargic and weak appearing. LABORATORY DATA: Obtained at the time of admission, PT/INR at 38 and 3.77, sodium at 142, potassium at 5.2, chloride at 104, bicarb at 21, BUN and creatinine at 50 and 3.2, glucose at 223, AST at 36, ALT at 19, CK at 71, troponin T at 58, albumin at 3.2, lactate at 2.0. Blood cultures pending at the time of admission. Urinalysis with urine culture pending at the time of admission. IMPRESSION: An 83-year-old with abnormal urine, fever to 101.7 with altered mental status and apparent acute renal failure likely urinary tract infection mediated. Certainly the patient had evidence of systemic inflammatory response syndrome. He is admitted for intravenous antibiotics, fever control and fluids, reassessing renal function and overnight hemodynamics, pending return of urine and blood cultures. 1. Cardiovascular: Atrial fibrillation on rate control agent and anticoagulation, specifically Coumadin. Patient having historically been on Pradaxa and Eliquis with breakthrough transient ischemic attack and is on Coumadin secondary to antiphospholipid antibody syndrome. He also continues on high dose aspirin. His transient ischemic attack symptoms have been mitigated in this regard. 2. Endocrinology: Diabetes with renal insufficiency. Hemoglobin A1c ranging between 8.1 and 8.7 secondary to dietary and lifestyle indiscretion despite basal and bolus insulin. Presence of nephropathy demonstrated by historically rising 24-hour urine in 2012 60.9 and in 2019 192. Holding patient's ARB at the time of admission secondary to renal insufficiency. 3. Chronic renal insufficiency. Historical creatinines ranging between 1.1 and 2.1. This would be the highest the creatinine has been in many years versus ever. I suspect that this is prerenal in nature further complicated by renal toxic agents. We will be holding the angiotensin receptor hanane, the Lasix, the allopurinol providing him fluid bolus and reassessing renal function in the morning. I have not ruled out the possibility of Nephrology consultation. 4. Known chronic cholecystitis based on historical abdominal ultrasound dated 2013 with no surgical intervention to date. We continue to follow clinically. 5. Chronic obstructive pulmonary disease with severe pulmonary fibrosis and emphysema. He is oxygen dependent, pulmonary function in 2018 FEV1/FVC at 52%, FEV1 of 1.57 L at 52%, FVC of 3.02 L at 74% and FEF 75 at 21% at 0.44 L. Patient also noted to have been admitted in July 2018 for transient ischemic attack symptoms. DISPOSITION: Daughter and understand the course of treatment and plan. No further issues at this time. We will continue to follow overnight. Note is dictated on the evening of admission. cc: DO JEFRY Reyes
[2019-06-05] MEDS: NS 1,000 ML IV SCH ×2 (03:13→17:12)
[2019-06-05 06:14] LABS: ALB/GLOB RATIO 0.9; ALBUMIN 3.1 g/dL (3.5-5.0); CALCIUM 8.5 mg/dL (8.8-10.2); CREATININE 3.3 mg/dL (0.7-1.2); POTASSIUM 4.5 mmol/L (3.5-5.1); TOTAL BILIRUBIN 1.4 mg/dL (0.20-1.00); TOTAL PROTEIN 6.6 g/dL (6.3-8.3)
[2019-06-05] MEDS: PEPCID IV SCH ×2 (06:20→19:09)
--- NOTE | 2019-06-05 07:29 | EKG Report ---
Test Performed on : 06/05/2019 06:20:44 AM Test Reason : ABN cardiac enzymes Blood Pressure : / mmHG Vent. Rate : 087 BPM Atrial Rate : 087 BPM P-R Int : 240 ms QRS Dur : 156 ms QT Int : 430 ms P-R-T Axes : 006 -76 096 degrees QTc Int : 517 ms Atrial-sensed ventricular-paced rhythm with prolonged AV conduction Abnormal ECG When compared with ECG of 15-AUG-2018 20:19, Vent. rate has increased BY 21 BPM Confirmed by Melina Anderson MD ([id number]) on 06/05/2019 12:15:59 PM
--- NOTE | 2019-06-05 07:56 | PROGRESS NOTE ---
DATE: 06/05/2019 INDICATION FOR PROLONGED HOSPITALIZATION: Patient admitted yesterday for SIRS, likely due to urinary tract infection. Also issues with acute on chronic renal failure with creatinine highest in the patient's history. Renal toxic drugs have been stopped. Overnight, the patient has received approximately 1.4 L of fluid, and creatinine has failed to improve. We will be seeking the opinion of Nephrology. LABORATORY DATA: Sodium 138, potassium 4.5, chloride 104, bicarb at 16, BUN and creatinine at 54 and 3.3, glucose at 210. AST and ALT at 57 and 34, alkaline phosphatase at 127. Admission CK at 71, CK this morning at 145. Troponin T on admission 58. A repeat troponin T is pending. OBJECTIVE: Vital Signs: This morning, blood pressure 127/50, respirations at 18, temperature at 98.5 degrees, T-max at 101.5 degrees, pulse at 60. I's and O's show 1400 mL in and only 30 mL out. General: The patient appears to be more alert this morning and communicative, asking when he will be able to leave. Cardiovascular: Regular rate and rhythm without murmurs, gallops, or rubs. Lungs: Clear. Abdomen: Soft. Extremities: Benign. Scattered ecchymoses of the upper extremities are noted. Neurologic: Cranial nerves II through XII appear to be grossly intact. LABORATORY DATA: As per chart. Outstanding urine culture and outstanding blood cultures. IMPRESSION: An 83-year-old with systemic inflammatory response syndrome, likely sepsis complicated by altered mental status and acute on chronic renal insufficiency. We will be seeking the opinion of Nephrology today for elevated BUN and creatinine. Continue with fluids. Hold nephrotoxic agents. Renal dose antibiotics. We did briefly discuss the possibility of the kidneys not fully recovering, the patient having issues with fluids and problems controlling volume status and the possibility of needing dialysis as either a bridge or a permanent solution to the patient's renal insufficiency. I do think that this conversation is somewhat premature, but I do think that options and possibilities as we move forward should be considered, especially if the patient's clinical condition fails to improve or acutely decompensates. There are also issues with regards to CK and troponin T. This current illness may have resulted in some myocardial injury, but electrocardiogram is pending at the time of dictation. We will be repeating the troponin T. DISPOSITION: The patient and the understand the course of treatment and plan. No further issues at this time. Note is dictated on the morning of rounds. cc: Yoni Turcios, DO
[2019-06-05] MEDS ORDERED: DITROPAN PO SCH (09:00)
[2019-06-05] MEDS ORDERED: ZYLOPRIM PO SCH (09:00)
[2019-06-05] MEDS: DITROPAN XL PO SCH (10:16)
[2019-06-05] MEDS: VITAMIN D PO SCH (10:16)
[2019-06-05] MEDS: ASPIRIN PO SCH (10:16)
[2019-06-05] MEDS: BETAPACE PO SCH ×2 (10:17→20:57)
[2019-06-05] MEDS: AZOPT 1% OPHTH SUSP RIGHT EYE SCH ×2 (10:17→20:56)
[2019-06-05 12:49] LABS: URINE SOURCE VOIDED
[2019-06-05 12:55] LABS: BILIRUBIN URINE NEGATIVE (NEGATIVE); BLOOD URINE LARGE (NEGATIVE); COLOR ORANGE; GLUCOSE URINE TRACE mg/dL (NEGATIVE); KETONE URINE NEGATIVE (NEGATIVE); LEUKOCYTES URINE LARGE (NEGATIVE); NITRITE URINE NEGATIVE (NEGATIVE); PROTEIN URINE 300 mg/dL (NEGATIVE); TURBIDITY URINE TURBID (CLEAR); UROBILINOGEN URINE NORMAL (NORMAL)
[2019-06-05 13:04] LABS: UR EPITHELIAL CELLS <10 /HPF (<10); URINE BACTERIA 1+ /HPF; URINE RBC TNTC /HPF (<10); URINE WBC TNTC /HPF (<10)
[2019-06-05 13:20] LABS: UR CREAT RANDOM 190.3 mg/dL (14-26)
[2019-06-05 13:24] LABS: UR PROT RANDOM 282.6 mg/dL
--- NOTE | 2019-06-05 13:27 | Diag Imaging Result Doc PS360 ---
EXAM: US RENAL 2 (RETROPER) COMPLETE HISTORY: decreased renal function TECHNIQUE: Renal ultrasound COMPARISON: 02/04/2016 FINDINGS: The right kidney measures 10.2 x 4.7 x 5.7 cm. Normal renal echotexture and cortical thickness. No renal stones or hydronephrosis. No solid renal mass. The urinary bladder is only mildly distended. The left kidney measures 11.5 x 5.6 x 7.0 cm. Normal renal echotexture and cortical thickness. No renal stone or hydronephrosis. There are small renal cysts. IMPRESSION: Small left renal cysts, otherwise normal renal ultrasound. Electronically signed by Oliver Ulloa 06/05/2019 1:25 PM
[2019-06-05] MEDS: ROCEPHIN 1 GM in NS 50 ML IV SCH (14:35)
[2019-06-05 14:49] LABS: BASO# 0.01 X1000 (0.0-0.2); BASO% 0.1 % (0.0-0.8); EOS# 0.13 X1000 (0.0-0.7); HEMATOCRIT 44.6 % (42.0-52.0); HEMOGLOBIN 14.1 g/dL (14.0-18.0); IMM GRAN# 0.04 X1000 (0.0-0.04); IMM GRAN% 0.3 % (0.0-0.5); LYMPH# 1.46 X1000 (1.2-3.4); LYMPH% 11.6 % (20.5-51.1); MCH 29.4 PG (27-31); MCHC 31.6 g/dL (33-37); MCV 93.1 FL (81-99); MONO# 0.98 X1000 (0.11-0.59); MONO% 7.8 % (1.7-9.3); MPV 12.2 FL (7.4-10.4); NEUT# 9.94 X1000 (1.4-6.5); NEUT% 79.2 % (42.2-75.2); PLT 145 X1000 (130-400); RBC 4.79 XMIL (4.7-6.1); RDW 14.9 % (11.5-14.5); WBC 12.56 X1000 (4.8-10.8)
--- NOTE | 2019-06-05 15:13 | NEPHROLOGY CONSULTATION ---
DATE: 06/05/2019 REASON FOR ADMISSION: Altered mental status with confusion, fever, and weakness. REASON FOR CONSULTATION: Acute kidney injury on CKD stage 3. CONSULTING PHYSICIAN: Yoni Turcios DO. HISTORY OF PRESENT ILLNESS: Mr. Oswald is an 83-year-old white male who is seen on an outpatient basis for chronic renal insufficiency. Baseline creatinine is 1.4 to 2.1. Last seen in our office was 11/2018. At that time, creatinine was 1.7 with an estimated GFR of 36%. The patient is due for followup this next November secondary to his stable CKD. Unfortunately, his stated that he awoke at 4:30 yesterday a.m. yelling from the bathroom. He was confused, was running a low- grade temperature. She had given him Tylenol. Unfortunately in a few hours, he developed a fever of 101.7. She had brought him to Dr. Turcios's office. At that time it was found that he had abnormal urine, elevated white cell count. Due to these findings, he was sent to [facility] and was admitted for further monitoring and evaluation. states he did not complain of any chest pain, no increased work of breathing. He had not had any nausea, vomiting, or diarrhea. She noted a foul odor coming from his urine. He had continued to take his medication in the context of his ARB, his Lasix, and remained on allopurinol. His last temperature was stable at 98.5. Blood pressure has been controlled. We have sent him for urine electrolytes and a renal ultrasound. PAST MEDICAL HISTORY: Chronic kidney disease stage 3B, baseline creatinine 1.7 to 2.1 over the last 3 to 4 years, COPD with oxygen dependence at home, emphysema, BPH, hypertension, hypercoagulability secondary to chronic atrial fibrillation, dyslipidemia, gout, prostate cancer, personal history of TIA, cardiac pacemaker, pulmonary fibrosis complicated by pulmonary hypertension, diabetes mellitus type 2 complicated with diabetic nephropathy, vitamin D deficiency, and anemia of chronic disease. PREVIOUS SURGERIES: Left ear in the , back surgery in 1988, TURP in 1997, lung surgery 1987, fractured right leg in the , pacemaker placement 2002, pacemaker replaced in 2007, bilateral cataract surgery 2003, Silver bunionectomy on the right in 2010, aortic valve repair in 2015. SOCIAL HISTORY: He is . He has 3 children, two are biologic, one is adopted, with multiple grandchildren who are attentive to his care. He is retired from [employer]. History of tobacco use, quit in 1977. Denies alcohol or illicit drug use. FAMILY HISTORY: Father is at 43 secondary to head and neck cancer. Mother in 2005, congestive heart failure. Brother at 73 years old, congestive heart failure and colon obstruction. Children and grandchildren are healthy. ALLERGIES: Listed, Hyzaar, Medinex, Atarax, Byetta, and hydroxyzine. HOME MEDICATIONS: He is on Betapace, Zocor, Azopt, Xalatan, Zyloprim, Coumadin, Tresiba FlexTouch, aspirin, Lasix, Claritin-D, Ditropan, vitamin B6, and Cozaar. REVIEW OF SYSTEMS: Review of systems x10 with pertinent positives listed above in the HPI. VITAL SIGNS: The patient's most recent vital signs, temperature 98.5 degrees, blood pressure 127/50, heart rate 60, respirations 18. He is on 2 L nasal cannula, last recorded saturation is 98%. He has had 1400 in, he has had 30 mL out to void. We have requested a bladder scan. LABORATORY DATA: Sodium 138, potassium 4.5, chloride is 104, CO2 16, BUN 54, creatinine 3.3, glucose is 210, anion gap of 18, calcium 8.5, albumin 3.1. CBC is pending. His prothrombin time is 38.4 with an INR of 3.77. Urine culture is pending. Urinalysis shows turbid orange color with large proteinuria, trace glucose, large hematuria, large leukocytes, too numerous to count WBCs and RBCs, 1+ bacteria. The patient had urine electrolytes indicating a FENa score of 0.64%. Renal ultrasound has been complete indicating a right kidney measuring 10.2, left kidney measuring 11.5, with a small uncomplicated renal cyst on the left. Chest x-ray completed on admission, this has not been interpreted. PHYSICAL EXAMINATION: General: This is an 83-year-old elderly male. He is sitting on the side of the bed. He has just returned from having his renal ultrasound completed. Skin: Warm and dry. HEENT: Normocephalic, atraumatic. Conjunctiva is pale, pink. He has SONIA. Mucous membranes are dry. Neck: Supple. Trachea midline. He has no evidence of JVD in the upright position. Cardiovascular: Regular rate and rhythm. He is without murmur or gallop. Lungs: Clear to auscultation bilaterally. Equal excursion. He is on room air. Abdomen: Large, round, soft, nontender. Positive bowel sounds. Genitourinary: Not inspected. Patient has just sat down from a wheelchair and has slight increased work of breathing. Extremities: Have 1+ lower extremity edema. This stops at the knee. Neurological: He is alert to person and to place, some recent events for today but forgetful as of yesterday or over the weekend. ASSESSMENT AND PLAN: 1. Acute kidney injury on chronic kidney disease stage 3B. Patient's baseline creatinine is 1.4 to 2.1. Last creatinine in our office of 1.7. The patient has prominent urinary tract infection. He is currently on Levaquin 250 mg x1 dose with Rocephin 1 g every 24 hours. Urine culture is currently pending. We have requested a bladder scan. There is an order to place Malin catheter if urine output remains low and he scans greater than 300 mL on his bladder scan per Dr. Turcios. His FENa score is low at 0.64% possibly indicating that he needs gentle intravenous fluid hydration. Agree with stopping his diuretic, his ARB, and allopurinol. 2. Electrolytes and acid-base balance. These are acceptable. The patient has acidosis with an elevated anion gap, more than likely related to #1 we will continue to monitor. 3. Anemia. Complete blood count is currently pending. 4. Altered mental status. This has improved. I would like to thank you for allowing us to follow with this patient. Dictated by FRANCK Church for Efra Dias MD Face to face encounter, data reviewed, discussed with Oliver Chand on 06/05/19. I agree with the above assessment and plan of care. cc: FRANCK Church MD Jeffrey A. Johnson, DO MTDD
[2019-06-05 17:51] LABS: CK INDEX 0.8 (0.0-2.5); CK-MB 4.8 ng/mL (0.0-5.0)
[2019-06-05] MEDS ORDERED: MISC. PHARMACY COMMUNICATION SCH (18:45)
--- NOTE | 2019-06-05 20:32 | CONSULTATION ---
DATE OF CONSULTATION: 06/05/2019 IMPRESSION: 1. Slight elevation in troponin in nonspecific range in setting of probable impending sepsis from urological source and acute renal dysfunction. Patient has had no chest pain and manifests no acute changes on ECG. 2. Aortic valve disorder. Patient is status post aortic valve replacement with bioprosthesis approximately [address] Phill, 25 mm Trifecta tissue valve 05/07/2015. Patient had occluded nondominant right coronary artery at that time but no other significant coronary stenosis. 3. Paroxysmal atrial fibrillation. 4. Sinus node dysfunction. Patient is status post permanent dual-chamber pacemaker. 5. Hypertension. 6. Hyperlipidemia. 7. Type 2 diabetes mellitus. 8. Chronic obstructive pulmonary disease. 9. Chronic kidney disease. 10. Cerebrovascular disease. 11. History of prostate cancer treated with radiation therapy. RECOMMENDATIONS: 1. Treat for possible sepsis as you are doing. 2. Repeat cardiac enzymes with CPK and isoenzymes. 3. Continue current medical cardiovascular management in this setting. HISTORY: This 83-year-old white male with past history of previous aortic valve replacement with bioprosthesis as outlined above, limited coronary atherosclerosis, paroxysmal atrial fibrillation, sinus node dysfunction requiring permanent pacemaker, COPD, hypertension, hyperlipidemia, type 2 diabetes mellitus and prostate cancer was admitted with acute febrile illness with associated confusion. He has been found to have acute on chronic renal dysfunction and suspected of having sepsis. Serial troponins were obtained, and troponin fallon to 114 using high sensitivity assay. For this reason, Cardiology was consulted. He denies any chest pain. He has some chronic exertional shortness of breath, which has not changed. His memory regarding recent events is somewhat sketchy, and his indicates that he became confused and was talking out of his head in the setting of acute febrile illness. He has some tendency for urinary incontinence but has not noted dysuria. PAST MEDICAL HISTORY: 1. Aortic valve disorder with previous aortic valve replacement with St. Phill 25 mm Trifecta tissue bioprosthesis 05/07/2015. This was performed for severe aortic stenosis. 2. Limited coronary atherosclerosis. Prior to his aortic valve replacement, he was reported to have occluded nondominant right coronary artery but no other significant coronary stenotic lesions. 3. Paroxysmal atrial fibrillation. 4. Sinus node dysfunction. Patient is status post permanent dual-chamber pacemaker. 5. Chronic obstructive pulmonary disease. 6. Hypertension. 7. Hyperlipidemia. 8. 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 9. Chronic kidney disease. 10. Carotid atherosclerosis, mild. 11. Previous transient ischemic attack in 2012. 12. Prostate cancer. This has been treated with radiation therapy. PAST SURGICAL HISTORY: Also includes unspecified left ear surgery, unspecified back surgery, transurethral resection of the prostate in 1997, unspecified lung surgery in 1987, fractured right leg in the , permanent pacemaker implant in 2002 with generator replacement in 2007, bilateral cataract surgery, bunionectomy on right, aortic valve replacement 2016. ALLERGIES: He is allergic or intolerant to Hyzaar, Medinex, Atarax, Byetta, and hydroxyzine. MEDICATIONS PRIOR TO ADMISSION: As listed. SOCIAL HISTORY: He is . He previously worked for [employer]. He has history of cigarette smoking at a rate of 3 packs a day for about 30 years but discontinued this in 1977. He does not use alcohol. FAMILY HISTORY: Noncontributory. REVIEW OF SYSTEMS: Pulmonary: Noncontributory beyond history of present illness. Gastrointestinal: Noncontributory beyond history of present illness. Constitutional: Noncontributory beyond history of present illness. Remainder of review of systems negative/noncontributory beyond history of present illness with 14 total systems reviewed. PHYSICAL EXAMINATION: General: This is a pleasant, older white male in no distress on room air. Vital signs: Blood pressure 101/42, heart rate 76, oxygen saturation 98%. HEENT Exam: Extraocular movements appear intact. Mucous membranes are moist. Neck: Supple without jugular venous distention. There are no carotid bruits. Chest: Clear to auscultation bilaterally. Cardiac Exam: Reveals a regular rate and rhythm without appreciable murmur or gallop. Abdomen: Soft. Bowel sounds are normal. Extremities: Without edema. Neurological Exam: Patient is noted to be alert and fully oriented. Speech is fluent. Moves all 4 extremities equally well. Skin: Warm and dry. Psychiatric: Reveals mood to be appropriate. LABORATORY DATA: Includes a white blood cell count 12.56, hematocrit 44.6, hemoglobin 14.1, platelet count 145,000. Sodium 138, potassium 4.5, chloride 104, carbon dioxide 16, BUN 54, creatinine 3.3, glucose 210, bilirubin 1.4, AST 57, ALT 34, alkaline phosphatase 127, initial troponin T high sensitivity 58 with a followup troponin T high sensitivity 114. CPK initially 145 with CPK prior to that 71. Urinalysis noteworthy for qzl-[id number]-count white blood cells and too numerous to count red blood cells. cc: MD Yoni Webster, DO
[2019-06-05] MEDS: XALATAN 0.005% OPH SOLN RIGHT EYE SCH (20:56)
[2019-06-05] MEDS: TRESIBA U SUBQ SCH (20:56)
[2019-06-05] MEDS: ZOCOR PO SCH (20:56)
[2019-06-05] MEDS ORDERED: COUMADIN PO SCH (21:00)
[2019-06-05 23:55] LABS: CK INDEX 0.8 (0.0-2.5); CK-MB 4.33 ng/mL (0.0-5.0)
[2019-06-06 05:15] LABS: HEMATOCRIT 43.1 % (42.0-52.0); HEMOGLOBIN 14.1 g/dL (14.0-18.0); MCH 30.3 PG (27-31); MCHC 32.7 g/dL (33-37); MCV 92.5 FL (81-99); MPV 11.8 FL (7.4-10.4); RBC 4.66 XMIL (4.7-6.1); RDW 14.9 % (11.5-14.5); WBC 9.6 X1000 (4.8-10.8)
[2019-06-06 05:49] LABS: ALBUMIN 2.9 g/dL (3.5-5.0); CALCIUM 8.8 mg/dL (8.8-10.2); CREATININE 3.2 mg/dL (0.7-1.2); PHOSPHORUS 2.5 mg/dL (2.7-4.5); POTASSIUM 4.3 mmol/L (3.5-5.1)
[2019-06-06] MEDS: PEPCID IV SCH (06:01)
[2019-06-06] MEDS: NS 1,000 ML IV SCH ×2 (06:02→20:40)
--- NOTE | 2019-06-06 08:23 | Diag Imaging Result Doc PS360 ---
CHEST-PORTABLE - 06/04/2019 INDICATION: fever and AMS COMPARISON: 08/15/2018 FINDINGS: Stable sternotomy wires. Stable left-sided pacemaker. Stable surgical suture lines throughout the right lung and hilum. Stable smaller volume of the right lung. There is cardiomegaly and pulmonary vascular congestion. No infiltrates or significant edema. No pneumothorax or pleural effusion. IMPRESSION: No change from prior. Cardiomegaly and mild pulmonary vascular congestion. Electronically signed by Alex Bautista 06/06/2019 8:20 AM
--- NOTE | 2019-06-06 08:31 | Diag Imaging Result Doc PS360 ---
EXAM: CT HEAD W/O CONTRAST INDICATION: AMS TECHNIQUE: This exam was performed using automated exposure control, adjustment of mA or kV according to patient size, and/or use of iterative reconstruction technique. COMPARISON: 08/15/2018 FINDINGS: There is patchy low attenuation in the periventricular and subcortical white matter suggesting mild microangiopathy, stable. There is no definite acute infarct given the limited sensitivity of CT versus MRI. There is no discrete intracranial mass, mass effect, or intracranial hemorrhage. There is severe chronic right maxillary sinusitis and sphenoid sinusitis with complete opacification of the right maxillary sinus and subtotal opacification of the sphenoid sinuses. This is essentially stable. There is milder ethmoid sinus mucosal disease. IMPRESSION: 1.Stable chronic appearing white matter changes but no definite acute intracranial pathology. 2.Chronic sinusitis. Electronically signed by Nathan Tamayo 06/06/2019 8:28 AM
[2019-06-06] MEDS: LEVAQUIN 250 MG in NS 50 ML IV SCH (09:20)
[2019-06-06] MEDS: DITROPAN XL PO SCH (09:21)
[2019-06-06] MEDS: ASPIRIN PO SCH (09:21)
[2019-06-06] MEDS: VITAMIN D PO SCH (09:21)
[2019-06-06] MEDS: BETAPACE PO SCH ×2 (09:21→20:40)
[2019-06-06] MEDS: AZOPT 1% OPHTH SUSP RIGHT EYE SCH ×2 (09:22→20:41)
[2019-06-06] MEDS: ROCEPHIN 1 GM in NS 50 ML IV SCH (14:35)
--- NOTE | 2019-06-06 17:59 | PROGRESS NOTE ---
DATE: 06/06/2019 INDICATION FOR PROLONGED HOSPITALIZATION: Ongoing medical management for SIRS/sepsis secondary to urinary tract infection compounded by altered mental status. Over the past 24 hours the patient has continued to improve. Now bacterial cultures noted to be negative. Urine cultures are positive for gram-negative rods. Culture and sensitivity are pending. SUBJECTIVE: The patient is up to the bedside with family in attendance eating dinner. He appears to be improved significantly. CT scan of the head obtained for altered mental status and lethargy demonstrates presence of chronic stable appearing white matter changes with no definitive acute intracranial pathology and evidence of chronic sinusitis involving the right maxillary sinus, the sphenoid sinus and complete opacification of the right maxillary sinus with subtotal opacification of the sphenoid sinus. Mild mucosal disease is also suggested in the ethmoid. Of interest, the patient has had a previous sinus surgical intervention. Vitals this evening at the bedside blood pressure 135/69, respirations at 20, pulse at 67, temperature 97.3 degrees. Saturating 94% on 2 L. INTAKE AND OUTPUT: 1455 in and 150 out for +1305. LABORATORY: For 06/06, white blood cell count at 9.60, hemoglobin and hematocrit at 14.1 and 43.1 with platelets at 126,000. Sodium 137, potassium at 4.3, chloride 103, bicarbonate at 18. BUN and creatinine continue to climb to 60 and 3.2. Phosphorus slightly low at 2.5. Cardiac enzyme trends, CK since admission 71, 145, 606, and 541. Troponin T Hs trends 58, 110 and, 123. Additional cardiac enzymes including CK index 0.8 and CK MB 4.8 and 4.3. PHYSICAL EXAMINATION: HEENT: Unremarkable. Cardiovascular: Regular rate and rhythm. Lungs: Clear. Abdomen: Unremarkable. Extremities: Benign. Neurological: Cranial nerves 2-12 are grossly intact. Again patient is alert and oriented, asking about the opportunity to go home. I have advised him that final disposition on urine culture is indicated. IMPRESSION: An 83-year-old with likely urosepsis complicated by altered mental status favorably responding to antibiotics Rocephin and renal dosed Levaquin. Admission further complicated by acute on chronic renal insufficiency with a BUN and creatinine as mentioned above. Nephrology is on board recommending conservative management, watchful waiting, and ongoing observation. He has some additional labs anticipated for the morning. Cardiology continues to provide insight with regards to rapidly rising and abnormal CK and troponin T. EKG has remained unchanged during the course of his hospitalization. DISPOSITION: We will follow up in the morning. Hopefully, with regards to results of urinary tract organism, we did discuss the possibility of transitioning him to oral therapy and doing follow up next week. Certainly downward trend in his creatinine would be preferred prior to discharge to home. He does not appear to be having any additional issues with regards to fluid overload or congestive heart failure/edema. We did discuss the possibility of uremia resulting in platelet dysfunction and bleeding. We will continue to follow with regards to BUN and creatinine and blood count. PT/INR will be ordered for tomorrow primarily due to the fact that he is on Coumadin and continues with antibiotics. The patient and , son and grandson understand the course of treatment and plan. No further issues at this time. Note is dictated on the evening of rounds. cc: Yoni Turcios DO
--- NOTE | 2019-06-06 19:46 | NEPHROLOGY PROGRESS NOTE ---
DATE: 06/06/2019 SUBJECTIVE: Mr. Oswald is sitting up in a chair. His is at his bedside. He thinks that he is feeling just a little bit better today. She thinks that he is a little bit more awake and alert. OBJECTIVE: Vital Signs: Temperature 99.1 degrees, blood pressure 167/89, heart rate 90, respirations 19. He is on 2 L nasal cannula. Last recorded saturation 92%. He has had 1455 in. He has had 150 mL out recorded, though he has been incontinent during the night. It appears he has 2.6 L positive in the last 48 hours. LABORATORY DATA: Sodium is 137, potassium 4.3, chloride 103, CO2 18, BUN 60, creatinine 3.2, glucose 157. His anion gap is 16, calcium 8.8, phosphorus 2.5, albumin 2.9, previous hemoglobin 14.1. The patient continues to have slight elevation of his troponins of 123. Urine electrolytes indicate a FENa score of 0.64%. PHYSICAL EXAMINATION: General: This is an 83-year-old elderly male. He is sitting up in a chair. He appears chronically ill. He is in no acute distress. Skin: Warm and dry. HEENT: Normocephalic, atraumatic. Conjunctiva is pale. He has SONIA. Mucous membranes are dry. Neck: Supple. Trachea midline. He has no evidence of JVD. Cardiovascular: Regular rate and rhythm. S4 is present. Lungs: Clear to auscultation anteriorly. Equal excursion on O2. Abdomen: Large, round, soft, nontender. Positive bowel sounds. Genitourinary: Not inspected. Patient has been voiding adequate amounts. Extremities: Have trace lower extremity edema. No clubbing or cyanosis. Neurological: He is alert to person and to place. ASSESSMENT AND PLAN: 1. Acute kidney injury on chronic kidney disease stage IIIB. Patient's creatinine has stabilized at 3.2 from 3.3. BUN remains stable. states that it has been difficult to get adequate urine samples. We will attempt to ask the staff for strict I's and O's. 2. Electrolytes and acid-base balance. This is acceptable. 3. Anemia. This is in target. 4. Altered mental status. This is slowly improving. 5. Urinary tract infection. Patient's urine is showing gram-negative rods with negative blood cultures. Sensitivity is pending. The patient remains on Rocephin 1 g. No indications for renal dosing. I would to thank you for allowing us to follow with this patient. Dictated by FRANCK Church for Efra Dias MD Face to face encounter, data reviewed, discussed with Oliver Chand on 06/06/19. I agree with the above assessment and plan of care. cc: FRANCK Church MD Jeffrey A. Johnson, DO MTDD
[2019-06-06] MEDS: XALATAN 0.005% OPH SOLN RIGHT EYE SCH (20:41)
[2019-06-06] MEDS: TRESIBA U SUBQ SCH (20:43)
[2019-06-07 05:41] LABS: INR 4.28; PROTIME 42.5 Seconds (11.0-16.0)
[2019-06-07 05:49] LABS: ALBUMIN 2.7 g/dL (3.5-5.0); CALCIUM 8.4 mg/dL (8.8-10.2); CREATININE 2.8 mg/dL (0.7-1.2); PHOSPHORUS 3.2 mg/dL (2.7-4.5); POTASSIUM 4.3 mmol/L (3.5-5.1)
[2019-06-07] MEDS ORDERED: LEVAQUIN 250 MG/D5W 250 MG/50 ML IVPB IV ONE (08:30)
[2019-06-07] MEDS ORDERED: MERREM 500 MG in NS 50 ML IV SCH (09:00)
[2019-06-07] MEDS: DITROPAN XL PO SCH (09:21)
[2019-06-07] MEDS: ASPIRIN PO SCH (09:21)
[2019-06-07] MEDS: LEVAQUIN 250 MG in NS 50 ML IV SCH (09:21)
[2019-06-07] MEDS: VITAMIN D PO SCH (09:21)
[2019-06-07] MEDS: BETAPACE PO SCH ×2 (09:22→20:35)
[2019-06-07] MEDS: AZOPT 1% OPHTH SUSP RIGHT EYE SCH ×2 (09:23→20:36)
[2019-06-07] MEDS: NS 1,000 ML IV SCH (09:26)
[2019-06-07 11:11] LABS: INR 4.24; PROTIME 42.2 Seconds (11.0-16.0)
[2019-06-07] MEDS: INVANZ 0.5 GM in NS 50 ML IV SCH (15:24)
--- NOTE | 2019-06-07 15:26 | PROGRESS NOTE ---
DATE: 06/07/2019 SUPPLEMENTAL NOTE: I was notified earlier today that Mr. Oswald's urine culture has returned positive for Escherichia coli, which is noted to be ESBL positive. He will need to be on IV antibiotics per additional conversation with Infectious Disease for at least 2 weeks. The patient presented with what appeared to be urinary tract infection with SIRS and altered mental status and acute renal failure and has now been found to have a rather virulent organism. The patient also has a history of atrial fibrillation and antiphospholipid antibody syndrome for which he takes Coumadin secondary to a TIA history. The concern that is presented is currently his INR is supratherapeutic. He is without any bleeding complications at this time and the Coumadin has been held, INR likely exacerbated by recent utilizing of antibiotics while anticoagulated. The concern is that by acutely or gradually reversing his INR, placing a PICC line through a heparin window and then needing to re-anticoagulate in order to prevent from a CVA and then once the infection is cleared, reversing coagulation, removing the PICC line, and then re- anticoagulating. It is my medical opinion that this presents a significant risk both on the insertion portion of the PICC line and the removal of the PICC line. Therefore, I will be consulting with Hematology/Oncology as to an alternate course of treatment with regards to Coumadin management. Unfortunately in this individual's case, he might be best served by remaining in the hospital over the course of the next 2 weeks receiving IV antibiotics as prescribed by Infectious Disease service and continuing to follow his other parameters clinically, ultimately I realize that this might run into utilization issues but the risk of placing and removing a PICC line in this gentleman with a primary hypercoagulopathy and history of TIAs while transitioning on and off Coumadin could be problematic at best. The family understands the course of treatment and plan. I have canceled the PICC line consultation temporarily. We will continue to follow his Coumadin as it drifts down naturally and perhaps provide him with Lovenox rather than try to manage the Coumadin while he is on antibiotics. The remainder of his other problems persist including [id number] renal insufficiency for which he appears to be improving. I appreciate the consultative opinions of both Infectious Disease and Nephrology today as well as Cardiac opinion earlier in the week, looking forward to management, recommendations from Hematology/Oncology. No additional issues at this time. Note is dictated on the afternoon of having a discussion with patient/ about with treating his infection with IV medicine while not exacerbating his coagulation risk or putting him at further risk for unintended bleeding. cc: DO JEFRY Reyes
[2019-06-07] MEDS ORDERED: INSULIN PEN NEEDLES ONE (15:55)
--- NOTE | 2019-06-07 18:05 | NEPHROLOGY PROGRESS NOTE ---
DATE: 06/07/2019 SUBJECTIVE: He is more alert today. He greeted me on arrival for the first time. His states that his mental status had improved progressively through the day yesterday, but still had some periods where he answered inappropriately. No pain. No shortness of breath. OBJECTIVE: Blood pressure 158/73, heart rate 60, respirations 14, afebrile. Intake 1 L, output 350 mL, but this was not adequately collected.General: No acute distress. Skin: Warm and dry. Conjunctivae are pink. Neck veins are not visible. Trachea is midline. Heart: Regular with no murmurs or gallops. Lungs: Equal. No crackles. Abdomen: Soft, nontender. Bowel sounds are present. Extremities: No edema, clubbing, or cyanosis. IMPRESSION/PLAN: Acute kidney injury in the context of urinary tract infection/altered mental state. His creatinine is improved today to 2.8. Data suggests that his acute kidney injury is not prerenal in origin. We adjusted his antibiotics because his culture grew ESBL positive E coli. Dr. Bocanegra is now on the case. No other changes. cc: MD Yoni Edmondson, DO
--- NOTE | 2019-06-07 18:12 | INFECTIOUS DISEASE CONSULT REP ---
DATE: 06/07/2019 CONCLUSION: The patient has an extended spectrum beta lactamase producing E coli urinary tract infection. In view of the fact that the patient had fever and an altered mental status, I think the patient's urinary tract infection involves his prostate and kidneys. The patient also has been having diarrhea. RECOMMENDATIONS: I am switching the patient from meropenem to ertapenem. Some of the side effects of ertapenem including rash, diarrhea and seizures have been explained to the patient who agrees with treatment. I have put in for the patient to have a PICC placed and I have also put in a consult for Social Service to set up home IV antibiotic with ertapenem and I have ordered stool for Clostridium difficile antigen and toxin and finally a pro time to see if the patient can have a PICC put in which I have ordered also. I am going to order a stool for regular culture. DISCUSSION: The patient approximately 5 days ago started having fever and altered mental status. He also had diarrhea. He has been in the hospital and is getting better. He has been started on meropenem and I changed that to ertapenem. The patient's blood cultures are negative. His CBC shows a white count of 9600, hemoglobin 14.1 and platelet count of a 126,000. Creatinine is 2.8. GFR is 22. Chest x-ray shows cardiomegaly and pulmonary vascular congestion. Renal ultrasound showed no stones and no hydronephrosis. REVIEW OF SYSTEMS: The patient's hearing is good. He does wear glasses. Neck: No stiffness. Respiratory: No cough or shortness of breath. Cardiac: No chest pain or palpitations. GI: No nausea or vomiting. As mentioned above, the patient has recently had diarrhea. Genitourinary: See present illness. Neurologic: No seizures. No loss of motor or sensory function. PREVIOUS HOSPITALIZATIONS AND OPERATIONS: He has had placement of a left-sided pacemaker. He has had aortic valve replacement. He has had a laminectomy and lung biopsy. MEDICAL DISEASES: Positive for diabetes mellitus, obesity, chronic obstructive pulmonary disease, hypertension, prostate cancer which was treated with radiation therapy. The patient also has hyperlipidemia and transient ischemic attack. INFECTIOUS DISEASE HISTORY: Negative for pneumonia and UTI. FAMILY HISTORY: Positive for congestive heart failure and cancer. SOCIAL HISTORY: [place] He is . He stopped smoking cigarettes in 1976. He does not drink alcoholic beverages or abuse drugs. He has dogs for pets at home. He is retired from working at [employer]. ALLERGIES: The patient is allergic to hydrochlorothiazide, Atarax, Orudis and losartan. HOME MEDICATIONS: Include allopurinol, Azopt, Lasix, insulin, losartan, oxybutynin, pyridoxine, Zocor, Betapace, Coumadin. PHYSICAL EXAMINATION: Vital Signs: Temperature is 98.1 degrees, pulse 60, respirations 14, blood pressure 158/73. Patient is 6 feet tall, weighs 242 pounds. General: This is an obese, elderly male. He is in no acute distress. Head/eyes/ears/nose/throat: He can hear my spoken words and see near objects. He does not have any white coating on his tongue. Neck: No meningismus. Lungs: Clear to auscultation. Cardiovascular: Regular heart rate. Thorax: The patient has a pacemaker present in the upper left part of his chest. The site is not erythematous or swollen. Abdomen: Soft and nontender. There is no CVA tenderness. Neurologic: The patient is alert. He is able to sit up. He is weak because of his illness and he needs some help with walking. Integument: No rash noted. The patient has some erythema on his right leg. He told me that this is present chronically and it has not changed. Extremities: The patient has bilateral leg edema as well as some erythema on the right leg. Thank you for the consult. cc: MD Yoni Cardoso,
[2019-06-07] MEDS: ZOCOR PO SCH (20:35)
[2019-06-07] MEDS: XALATAN 0.005% OPH SOLN RIGHT EYE SCH (20:36)
[2019-06-07] MEDS: TRESIBA U SUBQ SCH (20:36)
[2019-06-08] MEDS: NS 1,000 ML IV SCH (00:46)
[2019-06-08 06:46] LABS: ALBUMIN 2.4 g/dL (3.5-5.0); CALCIUM 8.3 mg/dL (8.8-10.2); CREATININE 2.4 mg/dL (0.7-1.2); PHOSPHORUS 2.9 mg/dL (2.7-4.5); POTASSIUM 4.2 mmol/L (3.5-5.1)
[2019-06-08] MEDS: DITROPAN XL PO SCH (10:25)
[2019-06-08] MEDS: BETAPACE PO SCH ×2 (10:25→21:18)
[2019-06-08] MEDS: VITAMIN D PO SCH (10:26)
[2019-06-08] MEDS: ASPIRIN PO SCH (10:26)
[2019-06-08] MEDS: AZOPT 1% OPHTH SUSP RIGHT EYE SCH ×2 (10:26→21:18)
[2019-06-08] MEDS: INVANZ 0.5 GM in NS 50 ML IV SCH (15:20)
--- NOTE | 2019-06-08 15:52 | PROGRESS NOTE ---
DATE: 06/08/2019 INDICATION FOR PROLONGED HOSPITALIZATION: Culture returning as ESBL positivity E. coli, ongoing renal improvement with BUN and creatinine falling from 3.3 to 2.4. BUN continues to rise. Additional studies for explosive diarrhea present during this admission evaluated by Infectious Disease. The patient found to have antigen positive for C. difficile toxin negativity. Stool culture is pending as well. The patient is without complaints or concerns this morning. Blood pressure 126/72, respirations at 14, pulse rate at 60, temperature at 97.9 degrees, T-max at 98.5 degrees. The patient is saturating 95% on 2 L nasal cannula. I's and O's 1440 in and 800 out for + 640. Now patient appears to be negative with 360 in and 500 out for -140. PHYSICAL EXAMINATION: HEENT is unremarkable. Cardiovascular regular rate and rhythm. Lung sounds decreased secondary to decreased inspiratory effort. There are no rales or rhonchi or wheezing. Abdomen is protuberant with normoactive bowel sounds. Extremities with 1+ pitting edema. Cranial nerves 2-12 are grossly intact. Patient is alert and oriented x3 without any cognitive deficiencies. IMPRESSION: 83-year-old, now on day #2 on ertapenem per Infectious Disease. This is q. 24-hour dosing. Also now with C. difficile antigen positivity, but with normal bowel habits. The patient is afebrile and is asymptomatic historically. Infectious Disease has encouraged treatment with vancomycin orally for antigen positivity. I will defer to Dr. Bocanegra in this regard. I will continue to follow clinically in this regard. Renal function continues to improve, albeit slowly, and we continue to await an opinion on Coumadin reversal, PICC line replacement, re- coumadinization and then repeating that process in the next 10 days once the patient has received full treatment for E. coli. DISPOSITION: The patient understands the course of treatment and plan. We will be getting an INR in the morning. He is currently now off Coumadin for this will be day #3. His most recent INR yesterday is noted to be 4.24, likely antibiotic mediated. The patient and understand the course of treatment and plan. No further issues at this time. Note is dictated on the morning of rounds. cc: Yoni Turcios,
[2019-06-08] MEDS: XALATAN 0.005% OPH SOLN RIGHT EYE SCH (21:17)
[2019-06-08] MEDS: TRESIBA U SUBQ SCH (21:18)
--- NOTE | 2019-06-08 23:27 | NEPHROLOGY PROGRESS NOTE ---
DATE: 06/08/2019 SUBJECTIVE: He states he is feeling better. He has been able to eat some. No shortness of breath, nausea or vomiting. OBJECTIVE: Vital Signs: Blood pressure 160/79, heart rate 60, respirations 14, afebrile. General: No acute distress. Skin: Warm and dry. Neck: Neck veins are not distended. Heart: Regular. Lungs: Equal, no crackles. Abdomen: Soft, nontender. Bowel sounds present. Extremities: No edema, clubbing or cyanosis. IMPRESSION: 1. Chronic kidney disease (CKD) with overlying acute kidney injury. Creatinine is improving. Baseline creatinine 1.4. 2. Urinary tract infection. Continue IV antibiotics. Will require prolonged IV antibiotics. His ultrasound did not demonstrate evidence of obstruction. 3. Metabolic acidosis. Likely related to his normal saline. He is eating now so I will simply discontinue this. cc: MD Yoni Edmondson, DO
[2019-06-09 05:52] LABS: BASO# 0.05 X1000 (0.0-0.2); BASO% 0.6 % (0.0-0.8); EOS# 0.23 X1000 (0.0-0.7); EOS% 2.6 % (0.0-10.0); HEMATOCRIT 42.5 % (42.0-52.0); HEMOGLOBIN 13.5 g/dL (14.0-18.0); IMM GRAN# 0.03 X1000 (0.0-0.04); IMM GRAN% 0.3 % (0.0-0.5); LYMPH# 1.28 X1000 (1.2-3.4); LYMPH% 14.2 % (20.5-51.1); MCH 28.9 PG (27-31); MCHC 31.8 g/dL (33-37); MPV 12.7 FL (7.4-10.4); NEUT# 6.52 X1000 (1.4-6.5); NEUT% 72.3 % (42.2-75.2); PLT 124 X1000 (130-400); RBC 4.67 XMIL (4.7-6.1); RDW 14.7 % (11.5-14.5); WBC 9.01 X1000 (4.8-10.8)
[2019-06-09 06:22] LABS: ALBUMIN 2.8 g/dL (3.5-5.0); CALCIUM 8.6 mg/dL (8.8-10.2); CREATININE 2.3 mg/dL (0.7-1.2); PHOSPHORUS 2.2 mg/dL (2.7-4.5); POTASSIUM 4.1 mmol/L (3.5-5.1)
[2019-06-09 06:28] LABS: INR 4.42; PROTIME 43.7 Seconds (11.0-16.0)
[2019-06-09 08:30] LABS: HEMOGLOBIN A1C 7.9 % (4.8-6.0)
--- NOTE | 2019-06-09 09:10 | PROGRESS NOTE ---
DATE: 06/09/2019 INDICATION FOR PROLONGED HOSPITALIZATION: Ongoing medical management for IV treatment of ESBL positive E coli urinary tract infection. This would be day #4 of IV medicine of a total of 14 anticipated. The patient is without complaints or concerns this morning. VITAL SIGNS: Blood pressure 190/88, respirations at 17, temperature 98.4 degrees. Blood pressure has been steadily increasing over the past 12 to 24 hours, systolics from 160 to 190 and diastolics from 76 to 118. The patient is saturating 93% on room air. I'S AND O'S: 1300 in and 3000 out for -1 0.7 L. LABORATORY DATA: Laboratory for this morning is reviewed and discussed with the patient at the bedside. White blood cell count normal at 9.0, hemoglobin and hematocrit at 13.5 and 42.5. There is a slight downward decrease. Platelets at 124,000. INR still remains elevated at 4.4. He has not been on Coumadin now for 4 days. He has a history of atrial fibrillation and antiphospholipid antibody syndrome complicated by historical TIAs with multiple occurrences. He is not currently actively bleeding. Sodium 140, potassium 4.1, chloride 109, bicarb at 18, BUN and creatinine at 6.2 and 2.3. Phosphorus at 2.2, albumin at 2.8. Blood cultures to date are negative. Urine culture, E coli, ESBL positive. Clostridium antigen noted to be positive, Clostridium toxin noted to be negative and stool culture is pending at the time of dictation. MEDICATIONS: Currently basal insulin, no mealtime insulin, aspirin 325, supplemental D, Invanz 500 mg q.24 hours. This would be day #4. Zofran as needed. Ditropan, Zocor, sotalol. He is not on any type of supplemental anticoagulant and he is currently not on any type of mealtime insulin. IMPRESSION: 1. An 83-year-old with urinary tract infection, positive culture for Escherichia coli, extended spectrum beta-lactamase positive. Continues on broad spectrum antibiotics day #4 of 14. Also Clostridium difficile antigen positive. Awaiting Dr. Bocanegra' opinion and recommendations for initiation of oral vancomycin. Renal function from a creatinine standpoint and BUN standpoint have improved or are improving. 2. Thrombocytopenia, aware. The patient is currently not on any type of deep venous thrombosis prophylaxis with the exception of ARNAV hose and ambulation. 3. Hypoalbuminemia and hypophosphatemia as well as metabolic acidosis. The patient continues to be clinically stable at this time. I appreciate the input of Nephrology and ID in this case. DISPOSITION: I have been advised by the nursing staff that Hematology/Oncology is not available for consultation until tomorrow. Will contact Hematology/Oncology office tomorrow and determine whether the new standard for weekend consultation will be next business day or if there will be any other factors that would delay the patient's evaluation. This consult was placed more than 48 hours ago. I am concerned that it may have bearing on case management and utilization review, and that we will likely be having the patient remain the full 14 days in the hospital for IV therapy secondary to his coagulopathy quandary. I have discussed the situation with the and the . They understand the course of treatment and plan. No further issues at this time. cc: Yoni Turcios, DO
[2019-06-09] MEDS: BETAPACE PO SCH ×2 (09:33→20:51)
[2019-06-09] MEDS: VITAMIN D PO SCH (09:33)
[2019-06-09] MEDS: ASPIRIN PO SCH (09:34)
[2019-06-09] MEDS: AZOPT 1% OPHTH SUSP RIGHT EYE SCH ×2 (09:34→20:52)
[2019-06-09] MEDS: DITROPAN XL PO SCH (09:34)
[2019-06-09] MEDS: NEUTRA-PHOS PO SCH ×4 (09:34→20:51)
--- NOTE | 2019-06-09 09:57 | INFECTIOUS DISEASE PROGRESS NO ---
DATE: 06/09/2019 PRESENT ILLNESS: The patient has an extended spectrum beta lactamase producing E. coli urinary tract infection. He also has Clostridium difficile diarrhea. MEDICATIONS: The patient is on ertapenem 500 mg IV daily. I plan on starting the patient on p.o. vancomycin for a total of 14 days. PHYSICAL EXAMINATION: Vital Signs: Temperature is 98.4 degrees, pulse 78, respirations 17, blood pressure 190/88. General: This is a chronically ill-appearing, elderly male. He is in no acute distress. Head, Eyes, Ears, Nose, and Throat: He can hear my spoken words and see near objects. He does not have any white coating of his mouth. Neck: No pain with movement. Lungs: Clear to auscultation. Cardiovascular: Heart rate is regular. Thorax: The patient has a pacemaker present in the left upper part of his chest. Abdomen: Soft and nontender. Extremities: The patient has leg edema and there is some erythema of the right leg but the patient has told me that this was present chronically. Neurologic: The patient is alert. He can move his extremities. There is no tremor. LAB AND X-RAY: There is no new radiographic study. The patient's CBC shows a white count of 9010, hemoglobin 13.5, and platelet count 124,000. Creatinine is 2.3. GFR is 27. Clostridium difficile toxin is negative. Clostridium difficile antigen is positive. Stool culture is pending. ASSESSMENT AND PLAN: The patient has an extended-spectrum beta-lactamase producing urinary tract infection. I suggest treating the patient with ertapenem intravenously for a total of 14 days. If the patient's glomerular filtration rate should get to be 30 or above, then I would increase the dose of ertapenem from 500 mg intravenous daily, which he is getting now, to 1 g intravenously daily. The patient also has Clostridium difficile diarrhea. I would suggest treating the patient with vancomycin by mouth with a dose of either 125 mg or 250 mg to be given every 6 hours for 14 days also. As regarding the patient's extended spectrum beta lactamase producing Escherichia coli, I would further suggest that a week after the patient has stopped antibiotics that he should have a urine culture obtained and if it is positive, then the patient will require probably switching him from ertapenem to meropenem and also treating him for 4 weeks to 6 weeks rather than the 2 weeks he is going to get now. I agree with keeping the patient in the hospital until his IV antibiotic is completed. COMORBIDITIES: The patient is elderly. He has diabetes mellitus, chronic obstructive pulmonary disease, prostate cancer which was treated with radiation therapy, and transient ischemic attack. I am signing off on the patient but I am available to see him on an as needed basis. Thank you for allowing me to see him. cc: MD Yoni Cardoso, DO CAPPS
[2019-06-09] MEDS: VANCOCIN PO SCH ×2 (14:01→20:51)
[2019-06-09] MEDS: INVANZ 0.5 GM in NS 50 ML IV SCH (16:50)
[2019-06-09] MEDS: XALATAN 0.005% OPH SOLN RIGHT EYE SCH (20:51)
[2019-06-09] MEDS: TRESIBA U SUBQ SCH (20:51)
[2019-06-10] MEDS: VANCOCIN PO SCH ×4 (01:50→21:17)
[2019-06-10 06:21] LABS: ALBUMIN 2.4 g/dL (3.5-5.0); CALCIUM 8.4 mg/dL (8.8-10.2); CREATININE 1.8 mg/dL (0.7-1.2); PHOSPHORUS 2.5 mg/dL (2.7-4.5); POTASSIUM 3.9 mmol/L (3.5-5.1)
[2019-06-10] MEDS: BETAPACE PO SCH ×2 (09:45→21:16)
[2019-06-10] MEDS: DITROPAN XL PO SCH (09:46)
[2019-06-10] MEDS: ASPIRIN PO SCH (09:46)
[2019-06-10] MEDS: VITAMIN D PO SCH (09:46)
[2019-06-10] MEDS: AZOPT 1% OPHTH SUSP RIGHT EYE SCH ×2 (09:47→21:15)
--- NOTE | 2019-06-10 10:31 | NEPHROLOGY PROGRESS NOTE ---
DATE: 06/10/2019 SUBJECTIVE: Patient is resting in bed. He has had no nausea or vomiting overnight. His states that he has been up with assistance at least 3 times last night to the restroom without difficulty. OBJECTIVE: Vital Signs: Temperature 98.1 degrees, pulse 53, respiratory rate 17, blood pressure 139/77. Intake 240 mL. Output 200 mL plus multiple voids not measured. General: Elderly gentleman resting in bed. No acute distress. HEENT: Normocephalic, atraumatic. SONIA. Oral mucosa moist. Neck: Supple without JVD. Cardiovascular: Regular rate and rhythm. No murmur noted. Pulmonary: Clear bilaterally. Abdomen: Soft. Positive bowel sounds. : Voiding. Extremities: No clubbing, cyanosis, or edema. Integumentary: Skin is pale, warm, and dry. Lab Data: Sodium 144, potassium 3.9, CO2 of 19, creatinine 1.9 (2.3). ASSESSMENT AND PLAN: 1. Chronic kidney disease overlying acute kidney injury with continued improvement. His baseline creatinine is 1.4. Today, his creatinine was 1.8. 2. Urinary tract infection. No change to current treatment plan. 3. Electrolytes, acid-base balance, anemia. These have been stable. 4. Hypertension, controlled. 5. Fluid volume. He is not overloaded. Dictated by FRANCK Peña for Efra Dias MD Face to face encounter, data reviewed, discussed with Carolina Cates on 06/10/18. I agree with the above assessment and plan of care. cc: MD Yoni Edmondson DO MTDD
[2019-06-10] MEDS: INVANZ 0.5 GM in NS 50 ML IV SCH (15:32)
[2019-06-10] MEDS: XALATAN 0.005% OPH SOLN RIGHT EYE SCH (21:14)
[2019-06-10] MEDS: ZOCOR PO SCH (21:17)
[2019-06-10] MEDS: TRESIBA U SUBQ SCH (21:20)
[2019-06-11] MEDS: VANCOCIN PO SCH ×4 (01:58→20:46)
[2019-06-11 05:26] LABS: BASO# 0.04 X1000 (0.0-0.2); BASO% 0.6 % (0.0-0.8); EOS# 0.47 X1000 (0.0-0.7); EOS% 6.5 % (0.0-10.0); HEMATOCRIT 39.9 % (42.0-52.0); HEMOGLOBIN 12.8 g/dL (14.0-18.0); IMM GRAN# 0.02 X1000 (0.0-0.04); IMM GRAN% 0.3 % (0.0-0.5); LYMPH# 1.71 X1000 (1.2-3.4); LYMPH% 23.8 % (20.5-51.1); MCH 29.1 PG (27-31); MCHC 32.1 g/dL (33-37); MCV 90.7 FL (81-99); MONO% 8.3 % (1.7-9.3); MPV 12.2 FL (7.4-10.4); NEUT# 4.36 X1000 (1.4-6.5); NEUT% 60.5 % (42.2-75.2); PLT 150 X1000 (130-400); RDW 14.7 % (11.5-14.5)
[2019-06-11 05:33] LABS: INR 3.21; PROTIME 33.8 Seconds (11.0-16.0)
[2019-06-11 07:24] LABS: LYMPHS 18 % (21-51); MONO 8 % (1-9); SEGS 74 % (42-75)
[2019-06-11 08:00] LABS: ALBUMIN 2.5 g/dL (3.5-5.0); CALCIUM 8.6 mg/dL (8.8-10.2); CREATININE 1.6 mg/dL (0.7-1.2); PHOSPHORUS 2.4 mg/dL (2.7-4.5); POTASSIUM 3.7 mmol/L (3.5-5.1)
[2019-06-11] MEDS: ASPIRIN PO SCH (09:07)
[2019-06-11] MEDS: DITROPAN XL PO SCH (09:07)
[2019-06-11] MEDS: VITAMIN D PO SCH (09:07)
[2019-06-11] MEDS: BETAPACE PO SCH ×2 (09:08→20:45)
[2019-06-11] MEDS: AZOPT 1% OPHTH SUSP RIGHT EYE SCH ×2 (09:09→20:45)
--- NOTE | 2019-06-11 10:10 | PROGRESS NOTE ---
DATE: 06/11/2019 INDICATION FOR PROLONGED HOSPITALIZATION: The patient was seen but no note dictated yesterday. He is now on day #6 of IV medicine for urinary tract infection. He is also receiving oral antibiotic therapy for C difficile antigen positivity at the recommendation of Infectious Disease. He continues to be followed for acute on chronic renal insufficiency. Yesterday's creatinine at 1.8. No new and/or significant developments over the past 24 hours. There does seem to be some concern with regards to the family regarding a consultation that was placed last Monday with Hematology/Oncology regarding patient's coagulable state and recommendations for PICC line, which I have not proceeded with secondary to increased risk and complication potential. I will be contacting Hematology/Oncology today for clarity on this concern on behalf of the patient. VITAL SIGNS: This morning, stable. Blood pressure 153/65, respirations at 17, pulse of 58, temperature at 97.4 degrees, saturating 97% on nasal cannula. Intake and output, 480 in and 680 out for -200 mL. Cumulatively, he is +2.1 L. LABORATORY DATA: For yesterday showing ongoing improvement of creatinine, falling from during his hospitalization from a high of 3.3 to now 1.8. Prior to this hospitalization, patient ranging between 1.3 and 2.0, as recently as 1.4 in July 2018. Other lab of interest this morning, INR appears to be trending downward at 3.21. He has been off his Coumadin now for several days. He takes Coumadin for both atrial fibrillation and for antiphospholipid antibody syndrome. This has been the biggest concern with acute reversal and then re-initiation and doing that process again, should a PICC line be needed for outpatient IV therapy. It is the opinion of Infectious Disease and myself that the patient would be best served without significant risk for complication by receiving the entirety of his 14 days in the hospital secondary to the problems with his coagulopathy. PHYSICAL EXAMINATION: HEENT: Unremarkable. Cardiovascular: Unremarkable. Lungs: Appear to be clear to auscultation without wheezes or rales. Extremities: He has 1+ pitting edema, slightly tender in the left lower extremity with old superficial trauma status post healing eschar. Neurologic: Cranial nerves 2-12 are grossly intact. Patient appears to be alert and oriented x3. IMPRESSION AND PLAN: An 83-year-old with extended-spectrum [id number]-tbkjliyz urinary tract infection, Escherichia coli. He continues on ertapenem 500 mg once daily. I suspect that we will likely be able to increase that to 1 mg now that his creatinine has improved. Instructions from Infectious Disease, who has signed off on the case, recommending that once his creatinine clearance was greater than 30, transitioning him to 1 g a day. His GFR is estimated at 36 mL/minute. If this is okay with Nephrology, I would like to change the dose to 1 g per day. He also continues on oral vancomycin as mentioned above. This will be needed for a total of 14 days. We will be obtaining a CMP for the morning as well as an INR now that his INR has continued to drop and to follow up on his creatinine. No further issues at this time. Note is dictated on the morning of rounds. The patient and understand the course of treatment and plan. cc: Yoni Turcios, DO
--- NOTE | 2019-06-11 14:48 | NEPHROLOGY PROGRESS NOTE ---
DATE: 06/11/2019 SUBJECTIVE: Patient is sitting up on the side of the bed. He states he is feeling better. OBJECTIVE: Vital Signs: Temperature 97.4 degrees, pulse 58, respiratory rate 17, blood pressure 153/65. Intake 480 mL. Output 680 mL. General: Elderly gentleman sitting up on the side of the bed. Awake, alert, no acute distress. HEENT: Normocephalic, atraumatic. Oral mucosa moist. Conjunctivae are pink. SONIA. Neck: Supple. There is no JVD. Cardiovascular: Regular. No murmur. Pulmonary: Clear. On room air. Abdomen: Soft. Positive bowel sounds. : Continues to void. Extremities: No edema, clubbing, or cyanosis. He is moving extremities. Integumentary: Skin is warm and dry. Neurologic: Nonfocal. LAB DATA: Chemistries are pending. ASSESSMENT AND PLAN: 1. Acute kidney injury overlying chronic kidney disease. His baseline creatinine is 1.4. He was close to that yesterday. We will sign off today. rg 2. Extended spectrum beta-lactamase, Escherichia coli urinary tract infection. He is on ertapenem and Vancocin secondary to C. difficile positive. Followed by Primary and Infectious Disease. From a renal perspective, no changes to his dosing. 3. Electrolytes, acid-base balance. His CO2 has continued to improve. It was 19 as of yesterday. 4. Hypoalbuminemia. We have encouraged intake. No current issues with fluid overload to warrant transfusion. 5. Metabolic bone health. Phosphorus is marginal but it has been fairly stable over the previous 2 days. No changes. Dictated by FRANCK Peña for Efra Dias MD cc: MD Yoni Edmondson, DO REBECCAD
[2019-06-11] MEDS: INVANZ 0.5 GM in NS 50 ML IV SCH (15:14)
[2019-06-11] MEDS ORDERED: INSULIN PEN NEEDLES ONE (19:51)
[2019-06-11] MEDS: XALATAN 0.005% OPH SOLN RIGHT EYE SCH (20:45)
[2019-06-11] MEDS: TRESIBA U SUBQ SCH (20:46)
[2019-06-12] MEDS: VANCOCIN PO SCH ×4 (02:26→21:26)
[2019-06-12 05:41] LABS: HEMATOCRIT 40.6 % (42.0-52.0); HEMOGLOBIN 13.2 g/dL (14.0-18.0); MCH 29.6 PG (27-31); MCHC 32.5 g/dL (33-37); MPV 11.9 FL (7.4-10.4); RBC 4.46 XMIL (4.7-6.1); RDW 15.2 % (11.5-14.5); WBC 6.85 X1000 (4.8-10.8)
[2019-06-12 06:07] LABS: ALBUMIN 2.5 g/dL (3.5-5.0); CALCIUM 8.5 mg/dL (8.8-10.2); CREATININE 1.5 mg/dL (0.7-1.2); PHOSPHORUS 2.5 mg/dL (2.7-4.5); POTASSIUM 3.7 mmol/L (3.5-5.1)
[2019-06-12] MEDS: BETAPACE PO SCH ×2 (08:11→21:27)
[2019-06-12] MEDS: VITAMIN D PO SCH (08:11)
[2019-06-12] MEDS: ASPIRIN PO SCH (08:11)
[2019-06-12] MEDS: DITROPAN XL PO SCH (08:11)
[2019-06-12] MEDS: NS IV SCH (08:12)
[2019-06-12] MEDS: NS 1,000 ML IV SCH ×2 (08:12→21:30)
[2019-06-12] MEDS: INVANZ IV SCH (08:12)
[2019-06-12] MEDS: AZOPT 1% OPHTH SUSP RIGHT EYE SCH ×2 (08:25→21:31)
--- NOTE | 2019-06-12 15:48 | HEMO/ONC CONSULTATION ---
DATE: 06/12/2019 ADMITTING PHYSICIAN: Dr. Yoni Turcios. REQUESTING PHYSICIAN: Dr. Yoni Turcios. We appreciate this consult. CHIEF COMPLAINT: Hypercoagulable state with recurrent TIAs. HISTORY OF PRESENT ILLNESS: Mr. Oswald is a very pleasant 83-year-old male with a history of COPD on oxygen at home, emphysema, BPH, hypertension, hypercoagulable state, dyslipidemia, gout, prostate cancer, TIA, pulmonary fibrosis, pulmonary hypertension, diabetes mellitus type 2, atrial fibrillation, chronic renal insufficiency. The patient is well known to Dr. Leal's secondary to a history of hypercoagulable state with recurrent transient ischemic attacks on Coumadin. The patient was followed closely in clinic by Dr. Leal, however, he has not been seen in clinic for approximately 1 year. The patient presented to [facility] as he awakened with significant confusion, the patient's states that he felt feverish. The patient's reported fever of 101.7. She states that she administered Tylenol. However, she presented to [facility] secondary to ongoing confusion. The patient is on chronic Coumadin therapy secondary to a history of TIA and on presentation the patient's INR was 3.77. His goal for therapy is an INR of 2.5 to 3.5. The patient had no overt bleeding, melena, or bruising. PAST MEDICAL HISTORY: As in the history of present illness. PAST SURGICAL HISTORY: 1. Back surgery. 2. TURP. 3. Lung surgery. 4. Repair of fractured right leg. 5. Pacemaker implantation with replacement. 6. Bilateral cataract extraction. 7. Bunionectomy. 8. Aortic valve repair. SOCIAL HISTORY: The patient does not use tobacco, alcohol or illicit drugs. He does have a history of smoking 3 packs daily for 30 years and quit in 1977. FAMILY HISTORY: Significant for father who is at 43 from head, neck cancer. No other hematologic or oncologic disease is noted. MEDICATIONS ON ADMISSION: 1. Azopt eye drops. 2. Aspirin 325. 3. Xalatan drops. 4. Lasix. 5. Paroxetine. 6. Coumadin. 7. Tresiba. 8. Simvastatin. 9. Pepcid AC. 10. Oxybutynin. 11. NovoLog FlexPen. 12. Sotalol. 13. Losartan. 14. Allopurinol. ALLERGIES: Hyzaar, Atarax, Byetta and hydroxyzine. REVIEW OF SYSTEMS: A 14 point review of systems was attempted but is unable to be obtained at this time as the patient is significantly confused. PHYSICAL EXAMINATION: Vital Signs: Mr. Oswald is an elderly 83-year-old male sitting up in bed in no acute distress. HEENT: Normocephalic, atraumatic. Mucous membranes are pink and moist. Sclerae is anicteric. Extraocular movements intact. Neck: Supple. Lungs: Clear to auscultation bilaterally with decreased breath sounds in the right lower lobe. Abdomen: Soft, nondistended, nontender. Bowel sounds positive all quadrants. No rebound or guarding noted. Extremities: With 1+ bilateral lower extremity edema. Dermatologic: No rashes, bruises or lesions. Neurologic: The patient is awake, He is oriented to name only at this time. He has no overt focal deficit. LABORATORY DATA: Hemoglobin 12.8, hematocrit 39.9, white blood cell count is 7.20, platelets 150,000. INR 3.21. Sodium 139, potassium 3.7, chloride 109, CO2 is 19, BUN 41, creatinine 1.6, and glucose is 87. Stool culture is negative. Blood culture is negative. ASSESSMENT AND PLAN: 1. Hypercoagulable state with recurrent transient ischemic attacks on Coumadin. The patient's INR goal is 2.5 to 3.5. He is currently therapeutic at 3.21. Would continue Coumadin as prescribed at this time. 2. Thrombocytopenia, very mild. Platelet count is 150,000. The patient has had no overt bleeding or bruising. Would continue to monitor. 3. Escherichia coli urinary tract infection. Currently on antibiotics. 4. Clostridium difficile colitis. The patient is currently on vancomycin p.o. 5. History of positive lupus anticoagulant. On last evaluation, test was negative. 6. History of prostate cancer with a 4+ 4 equals 8 [place] score, status post external beam radiation therapy. We continue to monitor and monitor PSA. Last PSA was 0.285. 7. We will follow along with you and make further recommendations pending outcome. The above reflects the history, exam, assessment and plan of Dr. Nic Leal. Dictated by FRANCK Olguin for Nic Leal MD cc: FRANCK Olguin MD Jeffrey A. Johnson, DO
[2019-06-12] MEDS ORDERED: COUMADIN PO ONE (21:00)
[2019-06-12] MEDS: XALATAN 0.005% OPH SOLN RIGHT EYE SCH (21:27)
[2019-06-12] MEDS: TRESIBA U SUBQ SCH (21:27)
--- NOTE | 2019-06-12 21:43 | Diag Imaging Result Doc PS360 ---
EXAM: CT HEAD W/O CONTRAST INDICATION: AMS, with improving Renal FX TECHNIQUE: This exam was performed using automated exposure control, adjustment of mA or kV according to patient size, and/or use of iterative reconstruction technique. COMPARISON: 06/06/2019 FINDINGS: There is patchy low attenuation in the periventricular and subcortical white matter suggesting mild microangiopathy, stable. There is no definite acute infarct given the limited sensitivity of CT versus MRI. There is no discrete intracranial mass, mass effect, or intracranial hemorrhage. There is stable sphenoid and right maxillary chronic sinusitis with complete opacification of the right maxillary sinus. IMPRESSION: Stable chronic changes but no definite acute intracranial pathology. Electronically signed by Nathan Tamayo 06/12/2019 9:41 PM
--- NOTE | 2019-06-12 21:50 | Diag Imaging Result Doc PS360 ---
EXAM: CHEST-PORTABLE INDICATION: AMS, decreased RR TECHNIQUE: One view COMPARISON: 06/04/2019 FINDINGS: There is a surgical staple line associated with the right lung. Central vasculature appears mildly prominent suggesting pulmonary venous congestion, stable. There is no discrete pleural fluid collection or pneumothorax. There are stable CABG changes. Cardiac silhouette is prominent but stable. IMPRESSION: Cardiomegaly and suggestion of mild pulmonary venous congestion. Electronically signed by Nathan Tamayo 06/12/2019 9:47 PM
--- NOTE | 2019-06-12 22:28 | PROGRESS NOTE ---
DATE: 06/12/2019 SUBJECTIVE: Both morning and evening rounds are performed. Over the past 24 hours, perhaps the most concerning is the patient's cognitive decline. The family reports Hematology/Oncology having been to evaluate the patient, but no substantially of comment on whether currently managing with Coumadin and not reversing the Coumadin and placing a PICC line would be the best course of treatment, considering the patient's atrial fibrillation history and antiphospholipid antibody syndrome history. His INR continues to drift downward. Most recent INR 3.2 yesterday morning. An INR is scheduled for , the , and he will receive a dose of Coumadin this evening. He has not received Coumadin in 5 days secondary to supratherapeutic INR. Of interest this morning, the patient noted to be somewhat confused and belligerent when the tries to assist putting him on oxygen, also extremely lethargic and obtunded. OBJECTIVE: Vital signs: Temperature 97.6 degrees, T-max 97.8 degrees, respiratory rate between 58 and 77, pulse oximetry between 90 and 100%, respiratory rate between 17 and 10. No notification regarding hypoventilation is noted. We did briefly discuss the differential diagnosis for encephalopathy including toxic metabolic or other potential causes. Exam in the morning is deferred, in the evening is deferred secondary to patient resting in bed. I'S AND O'S: -650 on 06/12/2019 and -200 on 06/11/2019. We have restarted the fluids this morning. He is now +1.0 2 L. Nephrology has signed off the case as of yesterday. Infectious Disease has signed off the case as of yesterday. Hematology/Oncology has a courtesy note within the record. It is noted and reviewed. IMPRESSION: An 83-year-old with extended spectrum beta-lactamase positive Escherichia coli as well as Clostridium difficile antigen positive stool. He is now on day 7 of 14 days of IV antibiotics. will be day 8. He has taken a step backwards from a cognitive standpoint, being alert and oriented and now much more obtunded and lethargic, sleeping all the time. Considering that he has not been on his normal and standard Coumadin dose over the past week, although he has been supratherapeutic, there is concern that he might have had a central event which has resulted in his altered mental status. Certainly being fluid down over the past 2 days is also a consideration. His BUN and creatinine as of 04/11/2020 continue to improve with BUN at 34 and creatinine at 1.5. AST and ALT have not been checked since the . This certainly would be a concern and there may be a component of hepatic mediated encephalopathy. Medications are reviewed. He continues on Tresiba. He continues on vancomycin 250 q.6. He continues on an aspirin. He continues on supplemental vitamin D. He continues on Invanz 1 g once daily. He continues on supplemental IV fluids. He continues on simvastatin 20 mg 3 times a week. We will be holding the simvastatin temporarily, pending return of liver associated enzymes. He continues on sotalol 40 mg twice daily and will receive a single dose of Coumadin 3 mg tonight. Orders for tomorrow will include a CMP as well as liver associated enzymes and an ammonia level as well as an INR, an ABG and a CBC which is ordered per the Nephrology service. This will be ordered secondary to Nephrology currently signing off on the case. There is, of interest, a 1.4 cm stone within the gallbladder. This is noted on historical CT scan dated June 2017. The CT scan of the head dated 06/06/2019 on admission demonstrating chronic/stable appearing white matter, but no definitive acute intracranial pathology. Patient with severe/chronic right-sided maxillary sinusitis which may further be a potential source for infection and might be contributing to the altered mental status. We will be obtaining a CT scan tonight somewhat semi urgently and continuing with ongoing workup as soon as tomorrow morning. Patient will be followed overnight for any acute clinical decompensation. No new and/or additional recommendations at this time. Note is dictated on the evening of rounds. cc: Yoni Turcios DO
[2019-06-13] MEDS: VANCOCIN PO SCH ×4 (01:51→21:35)
[2019-06-13 05:27] LABS: BASO# 0.01 X1000 (0.0-0.2); BASO% 0.1 % (0.0-0.8); EOS# 0.56 X1000 (0.0-0.7); EOS% 6.9 % (0.0-10.0); HEMOGLOBIN 13.2 g/dL (14.0-18.0); IMM GRAN# 0.02 X1000 (0.0-0.04); IMM GRAN% 0.2 % (0.0-0.5); LYMPH% 16.1 % (20.5-51.1); MCH 28.7 PG (27-31); MCHC 31.4 g/dL (33-37); MCV 91.3 FL (81-99); MONO# 0.71 X1000 (0.11-0.59); MONO% 8.8 % (1.7-9.3); MPV 11.7 FL (7.4-10.4); NEUT# 5.46 X1000 (1.4-6.5); NEUT% 67.9 % (42.2-75.2); PLT 189 X1000 (130-400); WBC 8.06 X1000 (4.8-10.8)
[2019-06-13 05:37] LABS: INR 1.94; PROTIME 22.6 Seconds (11.0-16.0)
[2019-06-13 05:45] LABS: ALB/GLOB RATIO 0.6; ALBUMIN 2.7 g/dL (3.5-5.0); CALCIUM 8.6 mg/dL (8.8-10.2); CREATININE 1.5 mg/dL (0.7-1.2); POTASSIUM 3.9 mmol/L (3.5-5.1); TOTAL BILIRUBIN 0.85 mg/dL (0.20-1.00); TOTAL PROTEIN 7.1 g/dL (6.3-8.3)
[2019-06-13] MEDS ORDERED: COUMADIN PO ONE (07:25)
[2019-06-13] MEDS: NS IV SCH (08:31)
[2019-06-13] MEDS: INVANZ IV SCH (08:31)
[2019-06-13] MEDS: ASPIRIN PO SCH (08:35)
[2019-06-13] MEDS: DITROPAN XL PO SCH (08:35)
[2019-06-13] MEDS: BETAPACE PO SCH ×2 (08:35→21:34)
[2019-06-13] MEDS: AZOPT 1% OPHTH SUSP RIGHT EYE SCH ×2 (08:36→21:35)
[2019-06-13] MEDS: CULTURELLE PO SCH ×2 (11:56→21:35)
[2019-06-13] MEDS: NS 1,000 ML IV SCH (16:33)
[2019-06-13] MEDS: XALATAN 0.005% OPH SOLN RIGHT EYE SCH (21:34)
[2019-06-13] MEDS: TRESIBA U SUBQ SCH (21:34)
[2019-06-14] MEDS: VANCOCIN PO SCH ×4 (03:17→20:22)
[2019-06-14] MEDS: NS 1,000 ML IV SCH ×2 (03:18→20:32)
[2019-06-14] MEDS: NS IV SCH (08:07)
[2019-06-14] MEDS: INVANZ IV SCH (08:07)
[2019-06-14] MEDS: DITROPAN XL PO SCH (08:08)
[2019-06-14] MEDS: CULTURELLE PO SCH ×2 (08:08→20:21)
[2019-06-14] MEDS: ASPIRIN PO SCH (08:08)
[2019-06-14] MEDS: AZOPT 1% OPHTH SUSP RIGHT EYE SCH ×2 (08:08→20:22)
[2019-06-14] MEDS: BETAPACE PO SCH ×2 (08:12→20:23)
--- NOTE | 2019-06-14 10:33 | PROGRESS NOTE ---
DATE: 06/14/2019 SUBJECTIVE: There was no progress note dictated for 06/13/2019. However, the patient was seen in the morning and in the evening. Over the past 24 to 36 hours, the patient has continued to remain somewhat hypersomnolent, although up last night at the bedside visiting with family and this morning up at the bedside eating his breakfast. The only thing which has changed over the past 48 hours has been the re-initiation of fluids, and the re-initiation of day-by-day Coumadin. PT/INR is pending for tomorrow. He is clinically stable this morning. Vitals: Blood pressure 142/63, respirations at 82, temperature at 97.5 degrees saturating 92% on 2 L nasal cannula. I's and O's: +1215 L yesterday and +1690 L today, up for a total 4.4 L during this admission. Progress note reviewed from Hematology Oncology. No additional recommendations noted. OBJECTIVE: HEENT: Unremarkable. Cardiovascular: Regular rate and rhythm. Lungs: Clear. Abdomen: Not assessed. Extremities: 1+ pitting edema of the lower extremity edema is noted. Cranial nerves 2-12 are not assessed. Patient is interacting with the and self feeding his breakfast. IMPRESSION: An 83-year-old with ESBL positive E. Coli now on day #9 of IV antibiotics. He is receiving 1 g of Invanz daily. This was recently increased from 500 mg a day secondary to renal insufficiency to 1 g per day. He is also on a probiotic, and is very interested in returning home. The reason that he has continued now with several days of IV antibiotics is he is anticoagulated for 2 reasons, one being atrial fibrillation, and the other being for hypercoagulable state. The logistics and risk of reversing the Coumadin on admission, placing a PICC line, and then reinitiating Coumadin, and doing that again after 14 days of therapy was felt to be problematic at best. Therefore, he remains and receives daily IV antibiotic. We did discuss with the patient growing more restless and wanting to be discharged to home the possibility of perhaps a premature discharge once we have cleared the stool, and once we have clear the urine. I am uncertain as to the exact etiology of his lethargy and cognitive decline. We will be redosing his Coumadin tonight at 3 mg. He received a total of 5 mg in the past 24 hours. The last INR of record is noted to be 1.94. A repeat INR will be checked tomorrow. I did discuss with the the possibility again of him going home with home health versus going to rehab, and then going home with home health versus those 2 options failing in the future, and really no other viable options with success other than long-term rehab placement. It is my medical opinion that the patient is going to need different living status other than independent living, which he has had up to this point just based on the labile nature of his overall physical health and intermittent cognitive problems since he has been admitted. It was my opinion when he was firstly admitted that this was likely infectious mediated, but with improving chemistries and fully addressing the infectious disease issues, liver enzymes appropriate receiving IV fluids and such, I think this is more of an exacerbation of baseline cognitive decline. Nevertheless, I will round in the morning as stated to the patient and the . No further issues at this time. We will be working on collecting a urine sample, stool sample, having the patient shower, and obtaining some labs for tomorrow morning for review. Patient and understand the course of treatment and plan. No further issues at this time. cc: Yoni Turcios,
[2019-06-14 17:06] LABS: URINE SOURCE VOIDED
[2019-06-14 17:08] LABS: BILIRUBIN URINE NEGATIVE (NEGATIVE); BLOOD URINE TRACE (NEGATIVE); COLOR YELLOW; GLUCOSE URINE NEGATIVE (NEGATIVE); KETONE URINE NEGATIVE (NEGATIVE); LEUKOCYTES URINE NEGATIVE (NEGATIVE); NITRITE URINE NEGATIVE (NEGATIVE); PH URINE 5.5; PROTEIN URINE 50 mg/dL (NEGATIVE); SP GRAVITY URINE 1.018; TURBIDITY URINE CLEAR (CLEAR); UR EPITHELIAL CELLS <10 /HPF (<10); URINE BACTERIA NEGATIVE /HPF; URINE RBC <10 /HPF (<10); URINE WBC <10 /HPF (<10); UROBILINOGEN URINE NORMAL (NORMAL)
[2019-06-14] MEDS: TRESIBA U SUBQ SCH (20:23)
[2019-06-14] MEDS: XALATAN 0.005% OPH SOLN RIGHT EYE SCH (20:23)
[2019-06-14] MEDS ORDERED: COUMADIN PO SCH (21:00)
[2019-06-15] MEDS: VANCOCIN PO SCH ×2 (02:29→08:14)
[2019-06-15 06:22] LABS: BASO# 0.01 X1000 (0.0-0.2); BASO% 0.1 % (0.0-0.8); EOS# 0.41 X1000 (0.0-0.7); EOS% 5.5 % (0.0-10.0); HEMATOCRIT 39.4 % (42.0-52.0); HEMOGLOBIN 11.9 g/dL (14.0-18.0); LYMPH# 1.08 X1000 (1.2-3.4); LYMPH% 14.4 % (20.5-51.1); MCH 27.8 PG (27-31); MCHC 30.2 g/dL (33-37); MCV 92.1 FL (81-99); MONO# 0.76 X1000 (0.11-0.59); MONO% 10.1 % (1.7-9.3); MPV 11.6 FL (7.4-10.4); NEUT# 5.25 X1000 (1.4-6.5); NEUT% 69.9 % (42.2-75.2); PLT 178 X1000 (130-400); RBC 4.28 XMIL (4.7-6.1); RDW 15.4 % (11.5-14.5); WBC 7.51 X1000 (4.8-10.8)
[2019-06-15 06:26] LABS: INR 3.61; PROTIME 37.1 Seconds (11.0-16.0)
[2019-06-15 06:44] LABS: ALB/GLOB RATIO 0.7; ALBUMIN 2.5 g/dL (3.5-5.0); CALCIUM 8.6 mg/dL (8.8-10.2); CREATININE 1.3 mg/dL (0.7-1.2); POTASSIUM 4.1 mmol/L (3.5-5.1); TOTAL BILIRUBIN 0.93 mg/dL (0.20-1.00); TOTAL PROTEIN 6.2 g/dL (6.3-8.3)
[2019-06-15] MEDS: NS IV SCH (07:55)
[2019-06-15] MEDS: INVANZ IV SCH (07:55)
[2019-06-15] MEDS: NS 1,000 ML IV SCH (08:08)
[2019-06-15] MEDS: AZOPT 1% OPHTH SUSP RIGHT EYE SCH (08:14)
[2019-06-15] MEDS: CULTURELLE PO SCH (08:14)
[2019-06-15] MEDS: ASPIRIN PO SCH (08:14)
[2019-06-15] MEDS: BETAPACE PO SCH (08:14)
[2019-06-15] MEDS: DITROPAN XL PO SCH (08:14)
[2019-06-15 09:57] VITALS: BP 172/77
--- NOTE | 2019-06-17 15:05 | DISCHARGE SUMMARY ---
ADMISSION DATE: 06/04/2019 DISCHARGE DATE: 06/15/2019 DISCHARGE DIAGNOSES: 1. Urinary tract infection with Escherichia coli ESBL positive present on admission. Culture negative at the time of discharge. No evidence of bacteremia. Patient did present with altered mental status/encephalopathy, likely infection mediated. 2. Acute renal failure. Admission creatinine at 3.2, peaking at 3.3. Patient's discharge creatinine at 1.3, baseline at 1.1. Acute on chronic renal insufficiency, resolved at the time of discharge, elevated BUN, likely contributing to altered mental state. Maximum BUN during this admission 67. At the time of discharge BUN was 17, back to baseline. 3. Clostridium difficile antigen. Empiric initiation of vancomycin 250 mg q.i.d. for 14 days as per Infectious Disease recommendations. 4. Electrolyte abnormalities, specifically hypophosphatemia ranging between 3.2 and a abdi of 2.2. Moderate to severe protein malnutrition with low pre-albumin and low albumin. Albumin at 2.5 with pre-albumin at 4.4, diabetes insulin dependent. Hemoglobin A1c at 7.9. 5. 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 PROCEDURES DURING ADMISSION: Including CT scan of the head for altered mental status 06/06/2019. Stable appearing chronic white matter changes and chronic sinusitis involving the right maxillary sphenoid. Mild ethmoid sinus sinusitis is suggested. A follow-up CT scan on June 12 for altered mental status negative for any type of intracranial process. CONSULTATIONS: During admission including Nephrology, Infectious Disease and Hematology/Oncology. HOSPITAL COURSE: The patient was admitted on the for altered mental status and evidence of UTI and acute on chronic renal insufficiency, the patient was admitted, started on broad-spectrum antibiotics. Culture returning positive for Escherichia coli, ESBL positivity. Infectious Disease was consulted, recommending 500 mg of Invanz once daily and once the GFR improved to increase to 1 g daily. Infectious Disease recommending conservative therapy, also in agreement with stopping potential nephrotoxic agents, presence of diarrhea on admission soliciting a check for clostridium difficile antigen and toxin. He was found to be positive for clostridium difficile antigen and empirically placed on vancomycin 250 mg q.6 hours. Patient appeared to improve. Fluids were reduced and stops. Patient's mentation waned despite BUN and creatinine improving. Blood cultures were noted to be negative. A followup urine culture was noted to be negative as was follow-up stool studies for clostridium difficile antigen and clostridium difficile toxin. Based on patient's atrial fibrillation history and antiphospholipid antibody, it was determined that the risk of reversing his anticoagulation, placing a PICC line, resuming anticoagulation, treating the patient for UTI and then repeating that process and an effort to remove the PICC line after being treated far outweighed the benefit and therefore he was maintained in the hospital for the past 10 days, being treated for his UTI and abnormal stool studies. On the morning of discharge patient noted to be hemodynamically stable. Blood pressure 172/77, respirations at 14, pulse at 60, temperature 97.6 degrees saturating 96% on 2 L. DISCHARGE MEDICATIONS: He is discharged on the following medications: Zyloprim/allopurinol 200 mg once daily will be held until further notice, 325 mg once daily, aspirin, Azopt eye drops 1 drop as directed b.i.d., Lasix 40 mg once daily. Tresiba 30 units at bedtime, Culturelle 1 capsule b.i.d., Xalatan drops as directed. Ditropan 10 mg once daily, Zocor 20 mg Monday, Monday, Monday, Betapace 40 mg b.i.d., vancomycin 250 mg q.6 for 10 days, and Coumadin at a 2- 3/2-3 alternating schedule. DISPOSITION: Family is interested in taking the patient home and trying discharge to home with home health to follow on Monday, the . We will be contacting Home Health agency and following clinically. We also discussed the possibility of rehab and then transition home and then long- term placement. It is my opinion that the patient's clinical condition will likely continue to decline based on advanced age and multiple comorbidities. His urinary tract infection has been addressed. His kidney function has improved and returned to baseline, although he appears to be somewhat persistently and cognitively compromised. We will continue to follow clinically in this regard. The patient's understands the course of treatment and plan. No further issues at this time. Note is dictated on the day after discharge. cc: Yoni Turcios DO
== END 2019-06-15 12:42 | disposition home health service (06) | DRG 871 ==
LOC: DIRADM → OBSVTOIN 14:05 → 1N 14:55
PROVIDERS: ADMIT Internal Medicine; ATTEND Internal Medicine